=== PATIENT | male | born 1930 | race Caucasian/White ===

== ENCOUNTER 2018-05-19 06:58 | Inpatient (IN) | payer MEDICARE, BC ==
[2018-05-19] MEDS ORDERED: Haloperidol Lactate 5 MG/ML VIAL ONE ×2 (07:04→10:23)
[2018-05-19 07:25] LABS: #Basophils 0.1 thou/uL (0.0-0.2); #Eosinphils 0.1 thou/uL (0.0-0.7); #Lymphocytes 1.2 thou/uL (1.20-3.40); #Monocytes 0.8 thou/uL (0.11-0.59); #Neutrophils 4.9 thou/uL (1.40-6.50); %Eosinophils 1.1 % (0.0-10.0); %Lymphocytes 16.3 % (21.0-51.0); %Monocytes 11.7 % (0.0-10.0); %Neutrophils 69.9 % (42.0-75.0); Hemoglobin 12.4 g/dL (14.0-18.0); Mean Corpuscular HGB CONC 33.4 g/dL (32.0-36.0); Mean Corpuscular Hemoglobin 28.3 pg (27.0-31.0); Mean Corpuscular Volume 84.8 fL (78.0-98.0); Mean Platelet Volume 7.7 fL (7.4-10.4); Platelet Count 166 thou/uL (130-400); RBC Distribution Width 16.6 % (11.5-14.5); Red Blood Cell (RBC) Count 4.37 mill/uL (4.70-6.10); White Blood Cell (WBC) Count 7.1 thou/uL (4.8-10.8)
[2018-05-19 07:47] LABS: ALT (SGPT) 17 U/L (8-55); AST (SGOT) 33 U/L (5-34); Albumin 3.2 g/dL (3.4-4.8); Alkaline Phosphatase 47 U/L (40-150); Anion Gap 13 mmol/L (10-20); BUN (Urea Nitrogen) 13 mg/dL (8.4-25.7); Bilirubin, Total 0.7 mg/dL (0.2-1.2); Calc. Creatinine Clearance 0 mL/min (70-130); Calcium 8.6 mg/dL (7.8-10.44); Carbon Dioxide 22 mmol/L (23-31); Chloride 102 mmol/L (98-107); Estimated GFR-MDRD Greater than 90; Globulin 2.9 g/dL (2.4-3.5); Glucose 126 mg/dL (83-110); Potassium 4.3 mmol/L (3.5-5.1); Protein, Total 6.1 g/dL (5.8-8.1); Sodium 133 mmol/L (136-145)
[2018-05-19 07:50] LABS: CKMB 4.7 ng/mL (0-6.6); Troponin I Less than 0.010 ng/mL (< 0.028)
--- NOTE | 2018-05-19 11:31 | CT ---
CT BRAIN WITHOUT CONTRAST: HISTORY: Altered mental status. COMPARISON: None. FINDINGS: Mild to moderate atrophy. No focal loss of gomez-white matter differentiation. No hemorrhage. No midline shift or mass effect. The paranasal sinuses and mastoids are clear. Calvarium is intact. Dense calcifications of the intr acranial intradural vertebral arteries as well as of the cavernous carotid arteries. IMPRESSION: No acute large volume hemorrhage or infarction. POS: [facility]
--- NOTE | 2018-05-19 13:04 | HP ---
DATE OF ADMISSION: 05/19/2018 PRIMARY CARE PHYSICIAN: Marya Balderrama M.D. REASON FOR ADMISSION: Acute encephalopathy. 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 He did not have any underlying dementia or any behavioral issue in the past. Currently, the patient is completely encephalopathic and extremely agitated and unable to provide a ny history by himself, so I spoke with the patient's primary care physician who was taking care of [facility] at [facility] as well as at snf on her phone number [phone]. Dr. Marya Balderrama is the primary care physician at [facility]. The patient's daughter, son and his are pres ent at bedside in the emergency room. They also provided some history. I have some broken history. The patient has a history of aortic valve stenoses and he required trans catheter aortic valve replacement in [place]. Before that, the patient was having intermittent TIAs. The patient was kept on aspirin and Plavix and this aortic valve replacement was done in July. The patient had one time admission in 10/25/2017 at [facility]. At that time, the anurag ent was sent there for TIA type of symptoms. He was having word finding difficulty and subsequently investigation done at [facility] and found to be small lacunar type of infarct and the patient w as started on aspirin and Plavix. Subsequently, the patient was also added on Eliquis therapy, which he was taking. The patient did have intermittent TIA type of symptoms, but it is not clear whether it was related with altered mental status, but family member points to TIA symptoms. This patient was recently admitted in our hospital in April. At that time, the patient had more i nvestigation including MRI, lumbar puncture, CT brain, carotid ultrasound, ultrasound thyroid, CT [address], abdomen and pelvis, routine blood test. During that admission, Neurology, Urology and primary va re physician was following there. The patient also had a catheter related injury and had gross hematuria and that is why 5 days he was off on Eliquis therapy and Eliquis was started on by the end of that admission on Monday and the anurag ent was doing very well on Monday and he was discharged to [facility]. On Monday, he was having intermittent confusion, but since Monday, Monday, the patient's condition d eteriorated. He was more and more agitated. He was hitting nurses. He was throwing food and that i s why the patient was sent to emergency room for evaluation. The patient's family members were also relatively unhappy with the hospital course at [facility] . 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 Fo und with thyroid mass on ultrasound, atrial fibrillation, chronic anticoagulation, history of aortic stenosis, required transcatheter aortic valve replacement. PAST SURGICAL HISTORY: As per family member, the patient required a transcatheter aortic valve repla cement. PAST PSYCHIATRIC HISTORY: Reviewed and negative. SOCIAL HISTORY: The patient is currently from [facility]. No history of tobacco, alcohol or illicit drug abuse. 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 FAMILY HISTORY: No family history of coronary artery disease, stroke or cancer. ALLERGIES: No known drug allergy. CURRENT HOME MEDICATIONS: Centrum Silver 1 tablet daily, lorazepam 0.5 mg twice daily, Crestor 40 mg daily, metformin 500 mg daily, thiamine 100 mg daily, Haldol 2 mg twice daily, Eliquis 5 mg twice da lady, Multaq 400 mg twice daily, calcium carbonate 500 mg 1 tablet q.8 hourly p.r.n. REVIEW OF SYSTEMS: All review of systems tried to reviewed with the patient, but unable to review at this point because of encephalopathy. EMERGENCY ROOM COURSE: The patient required 2 doses of Haldol 2.5 mg. PHYSICAL EXAMINATION: VITAL SIGNS: Currently, blood pressure 116/64, pulse 92, respiratory rate 16, temperature 98.9, satu ration 98% on room air, weight 74.8 kilograms. GENERAL: The patient is currently extremely agitated, restless, combative. HEAD: Normocephalic, atraumatic. EYES: Pupils round and reactive to light. Extraocular muscles intact. ENT: Oropharynx within normal limit. Moist mucous membrane. No oral lesion, no pharyngeal erythema , no exudate. NECK: Supple, no JVD, no thyromegaly, no carotid bruit. LUNGS: Clear to auscultation without any rhonchi or rales. CARDIAC: S1, S2 appears regular. Soft systolic murmur noted. No gallop, no rub. ABDOMEN: Soft, bowel sounds present, nontender, nondistended. No organomegaly, no mass, no suprapub ic tenderness. BACK: Unremarkable. No CVA tenderness. EXTREMITIES: Upper extremities, passive movement of all joints are normal. Lower extremities, trace edema noted. Good distal pulsation. SKIN: No skin rash. HEMATOLOGICAL: No lymphadenopathy. PSYCHIATRIC: Unable to assess at this point, the patient is completely restless and agitated. NEUROLOGIC: He is moving all four limbs. His speech is garbled and rambling. He is extremely agita dexter, but he is moving all 4 limbs. He is alert and oriented x0. SIGNIFICANT LABORATORY DATA: EKG showing normal sinus rhythm, nonspecific ST-T changes. CT brain ba sed on my review, no acute intracranial process. CBC, WBC 7.1, hemoglobin 12.4, platelet 166,000. BMP, sodium 133, potassium 4.3, chloride 102, carbo n dioxide 22, BUN 13, creatinine 0.79, glucose 126, calcium 8.6. LFT, AST 33, ALT 17, alkaline phosphatase 47, albumin 3.2, CK-MB 4.7. Troponin I less than 0.010. ASSESSMENT: 1. Acute encephalopathy. This patient has multiple investigations done in the recent past at [facility] and that we will obtain all medical record. I spoke with the patient's primary care physic jacques who was taking care of him at [facility] and discussed test results done over there. As per them, MRI brain was unremarkable for any acute process. Lumbar puncture was negative. Culture from CSF was negative. CSF VDRL was negative. West Nile virus was negative. CSF biochemistry was jeanna l. Routine labs were all unremarkable. CT chest, abdomen and pelvis was also unremarkable. Ultraso und carotid showed incidental thyroid mass. Paraneoplastic workup was not done at [facility]. There was no new medication that was added and the patient has previous multiple transient ischemic a ttacks and one time proven stroke. At this point, exact etiology of his behavioral issues and his ag itation is not known, but this all started within 2 weeks. Otherwise, the patient previously normal functioning properly and now he is completely not able to take care of himself. At this point, we wi ll control his agitation first. We will keep closely in stroke floor, do neuro check, safety precaut ions. We will consult Neurology and we will decide further investigation after Neurology see him. A ny kind of investigation needed, then we will order after Neurology sees him. 2. Diabetes type 2. We will provide insulin as per sliding scale per protocol. 3. Atrial fibrillation on chronic anticoagulation. 4. 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 5. History of transcatheter aortic valve replacement. PLAN: Full admission to stroke floor. We will control agitation and we will do more investigation a fter Neurology sees him. This patient is not safe for discharge back to snf and we are expe cting the patient's stay in hospital more than 2 midnights. CODE STATUS: Full code. The patient's son is surrogate decision maker. Plan of care discussed with the family member at bedside in the emergency room.
[2018-05-19] MEDS ORDERED: Acetaminophen 325 MG TAB PO PRN (13:36)
[2018-05-19] MEDS ORDERED: Labetalol HCl 100 MG/20 ML VIAL SLOW IVP PRN (13:36)
[2018-05-19] MEDS ORDERED: hydrALAZINE 20 MG/ML VIAL SLOW IVP PRN (13:36)
[2018-05-19] MEDS ORDERED: Bisacodyl 10 MG SUPP PR PRN (13:36)
[2018-05-19] MEDS ORDERED: Metoclopramide HCl 10 MG/2 ML VIAL IVP PRN (13:36)
[2018-05-19] MEDS ORDERED: Eucerin (Mineral Oil/Petrolatum,White) 30 gm Jar TOP PRN (13:36)
[2018-05-19] MEDS ORDERED: Sodium Chloride 0.65% Nasal 44 ML BOT EA NARE PRN (13:36)
[2018-05-19] MEDS ORDERED: Dextrose 50% Abboject 50 ML SYRINGE SLOW IVP PRN (13:36)
[2018-05-19] MEDS ORDERED: Dextrose 5% in Water 1,000 ML IV PRN (13:36)
[2018-05-19] MEDS ORDERED: Artificial Tears 18 DROP/0.9 ML EA EYE PRN (13:36)
[2018-05-19] MEDS ORDERED: Acetaminophen 650 MG Suppository PR PRN (13:36)
[2018-05-19] MEDS ORDERED: Sterile Water 10 ML VIAL FS PRN (17:10)
[2018-05-19] MEDS: metFORMIN 500 MG TAB PO SCH (17:29)
[2018-05-19] MEDS: Ziprasidone 20 MG VIAL IM PRN ×3 (17:29→22:38)
[2018-05-19] MEDS ORDERED: diphenhydrAMINE 50 MG/ML VIAL IVP SCH (20:00)
[2018-05-19] MEDS ORDERED: Lorazepam 2 MG/ML VIAL SLOW IVP SCH (20:00)
[2018-05-19] MEDS: Rosuvastatin 20 MG TAB PO SCH (21:50)
[2018-05-19] MEDS: Apixaban 5 MG TAB PO SCH (21:50)
[2018-05-19] MEDS: Lorazepam 0.5 MG TAB PO SCH (21:50)
[2018-05-19] MEDS: Famotidine/PF 20 mg/2ml Vial SLOW IVP SCH (21:50)
[2018-05-19] MEDS: Dronedarone HCl 400 MG TAB PO SCH (21:50)
[2018-05-19] MEDS: Haloperidol 1 MG TAB PO SCH (21:50)
[2018-05-20 06:25] LABS: #Eosinphils 0.1 thou/uL (0.0-0.7); #Lymphocytes 0.6 thou/uL (1.20-3.40); #Monocytes 0.5 thou/uL (0.11-0.59); #Neutrophils 2.8 thou/uL (1.40-6.50); %Basophils 0.5 % (0.0-1.0); %Eosinophils 1.5 % (0.0-10.0); %Lymphocytes 14.3 % (21.0-51.0); %Monocytes 12.9 % (0.0-10.0); %Neutrophils 70.8 % (42.0-75.0); Hemoglobin 11.4 g/dL (14.0-18.0); Mean Corpuscular Hemoglobin 28.1 pg (27.0-31.0); Mean Platelet Volume 7.7 fL (7.4-10.4); Platelet Count 131 thou/uL (130-400); RBC Distribution Width 16.5 % (11.5-14.5); Red Blood Cell (RBC) Count 4.05 mill/uL (4.70-6.10); White Blood Cell (WBC) Count 3.9 thou/uL (4.8-10.8)
[2018-05-20 06:59] LABS: ALT (SGPT) 16 U/L (8-55); AST (SGOT) 32 U/L (5-34); Albumin 2.6 g/dL (3.4-4.8); Alkaline Phosphatase 46 U/L (40-150); Anion Gap 10 mmol/L (10-20); BUN (Urea Nitrogen) 11 mg/dL (8.4-25.7); Bilirubin, Total 0.6 mg/dL (0.2-1.2); Calc. Creatinine Clearance 68 mL/min (70-130); Calcium 8.5 mg/dL (7.8-10.44); Carbon Dioxide 25 mmol/L (23-31); Chloride 104 mmol/L (98-107); Estimated GFR-MDRD Greater than 90; Globulin 2.5 g/dL (2.4-3.5); Glucose 79 mg/dL (83-110); Potassium 4.1 mmol/L (3.5-5.1); Protein, Total 5.1 g/dL (5.8-8.1); Sodium 135 mmol/L (136-145)
[2018-05-20] MEDS: Dronedarone HCl 400 MG TAB PO SCH ×2 (08:54→21:57)
[2018-05-20] MEDS: Apixaban 5 MG TAB PO SCH ×2 (08:54→21:57)
[2018-05-20] MEDS: metFORMIN 500 MG TAB PO SCH ×2 (08:54→16:29)
[2018-05-20] MEDS: Haloperidol 1 MG TAB PO SCH (08:54)
[2018-05-20] MEDS: Lorazepam 0.5 MG TAB PO SCH (08:55)
[2018-05-20] MEDS: Famotidine/PF 20 mg/2ml Vial SLOW IVP SCH ×2 (08:55→21:58)
--- NOTE | 2018-05-20 09:44 | PDOC.PN ---
- Subjective Encounter Start Date: 05/20/18 Encounter Start Time: 07:10 -: old records requested/rev last night pt was violent and aggressive, pt is confused this morning Patient seen and examined. sitter bedside - Objective Resuscitation Status: Resuscitation Status FULL:Full Resuscitation MAR Reviewed: Yes Vital Signs & Weight: Vital Signs (12 hours) Temp Pulse Resp BP Pulse Ox 05/20/18 07:29 97.6 F 74 16 151/69 H 98 05/20/18 04:00 97.7 F 70 16 179/70 H 98 05/19/18 23:52 96.6 F L 89 16 166/83 H 96 Weight Weight 149 lb Result Diagrams: 05/20/18 05:56 05/20/18 05:56 Additional Labs: Accuchecks 05/19/18 05/19/18 22:50 15:56 POC Glucose 103 107 EKG Reviewed by me: Yes (nsr) Phys Exam - Physical Examination Constitutional: NAD HEENT: PERRLA, moist MMs, sclera anicteric Neck: no JVD, supple Respiratory: no wheezing, no rales, no rhonchi Cardiovascular: RRR, no significant murmur, no rub Gastrointestinal: soft, non-tender, no distention, positive bowel sounds Musculoskeletal: no edema, pulses present Neurological: moves all 4 limbs Lymphatic: no nodes Psychiatric: normal affect Skin: no rash, normal turgor Dx/Plan (1) Encephalopathy acute Code(s): G93.40 - ENCEPHALOPATHY, UNSPECIFIED Status: Acute (2) PAF (paroxysmal atrial fibrillation) Code(s): I48.0 - PAROXYSMAL ATRIAL FIBRILLATION Status: Chronic Comment: on [place] (3) Chronic anticoagulation Code(s): Z79.01 - 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 (CURRENT) USE OF ANTICOAGULANTS Status: Chronic Comment: with frank (4) Status post transcatheter aortic valve replacement Code(s): Z95.2 - PRESENCE OF PROSTHETIC HEART VALVE Status: Chronic Comment : done in July 2017 (5) Anxiety and depression Code(s): F41.9 - ANXIETY DISORDER, UNSPECIFIED; F32.9 - MAJOR DEPRESSIVE DISORDER, SINGLE EPISODE, UNSPECIFIED Status: Chronic - Plan cont current plan of care * Neurology evaluation pending, * neurology to decide if any more testing require to identify etiology for his encephalopathy, he had most of investigation done at [facility] recently * medication reviewed as below * symptomatic treatment * supportive care. * will update family but at this point no new information to update Review of Systems - Review of Systems Other: not reliable with pt due to encephalopathy - Medications/Allergies Allergies/Adverse Reactions: Allergies Allergy/AdvReac Type Severity Reaction Status Date / Time No Known Allergies Allergy Verified 05/19/18 14:06 Medications: Current Medications Acetaminophen (Tylenol) 650 mg PO Q4H PRN PRN Reason: Headache/Fever/Mild Pain (1-3) Acetaminophen (Tylenol) 650 mg SD Q4H PRN PRN Reason: Headache/Fever/Mild Pain (1-3) Apixaban (Eliquis) 5 mg PO BID [facility] Last Admin: 05/20/18 08:54 Dose: 5 mg Artificial Tears (Tears Naturale) 2 drop EA EYE PRN PRN PRN Reason: Dry Eyes Bisacodyl (Dulcolax) 10 mg SD DAILYPRN PRN PRN Reason: Constipation Dextrose/Water (Dextrose 50%) 25 gm SLOW IVP PRN PRN PRN Reason: Hypoglycemia Dronedarone (Multaq) 400 mg PO BID [facility] Last Admin: 05/20/18 08:54 Dose: 400 mg Famotidine (Pepcid) 20 mg SLOW IVP Q12HR [facility] Last Admin: 05/20/18 08:55 Dose: 20 mg Glucagon (Glucagon) 1 mg IM PRN PRN PRN Reason: Hypoglycemia Haloperidol (Haldol) 2 mg PO BID [facility] Last Admin: 05/20/18 08:54 Dose: 2 mg Hydralazine HCl (Apresoline) 10 mg SLOW IVP Q4H PRN PRN Reason: SBP > 180 and HR < 70 Dextrose/Water (D5w) 1,000 mls @ 0 mls/hr IV .Q0M PRN PRN Reason: Hypoglycemia Insulin Human Lispro (Humalog) 0 units SC .MODERATE SLIDING SC PRN PRN Reason: Moderate Correctional Scale Insulin Human Lispro (Humalog) 0 units SC .BEDTIME SLIDING SC PRN PRN Reason: Bedtime Correctional Scale Labetalol HCl (Normodyne) 20 mg SLOW IVP Q4H PRN PRN Reason: SBP > 180 and HR >/= 70 Lorazepam (Ativan) 0.5 mg PO BID [facility] Last Admin: 05/20/18 08:55 Dose: 0.5 mg Metformin HCl (Glucophage) 500 mg PO BID-[facility] Last Admin: 05/20/18 08:54 Dose: 500 mg Metoclopramide HCl (Reglan) 5 mg IVP Q4H PRN PRN Reason: Nausea Mineral Oil/White Petrolatum (Eucerin Cream) 0 gm TOP BIDPRN PRN PRN Reason: Dry Skin Rosuvastatin Calcium (Crestor) 40 mg PO HS [facility] Last Admin: 05/19/18 21:50 Dose: Not Given Sodium Chloride ([place] Nasal [place] 0.65%) 0 ml EA NARE QIDPRN PRN PRN Reason: Nasal Congestion Sterile Water (Water For Injection) 0 ml FS PRN PRN PRN Reason: .FOR GEODON Last Admin: 05/19/18 17:29 Dose: 1.2 ml Thiamine HCl (Thiamine) 100 mg PO DAILY [facility] Last Admin: 05/20/18 08:55 Dose: 100 mg Ziprasidone (Geodon) 10 mg IM Q2H PRN PRN Reason: Agitation Last Admin: 05/19/18 22:38 Dose: 10 mg
--- NOTE | 2018-05-20 16:19 | CON ---
DATE OF CONSULTATION: 05/20/2018 CONSULTING PHYSICIAIN: Hospitalist Service. IMPRESSION: 1. Acute encephalopathy, which has been present for nearly 2 weeks at this point with uncertain etio logy. 2. Diabetes. 3. Aortic valve replacement. PLAN: 1. Seroquel 50 mg at night. 2. Geodon 20 mg IM q.12 hours p.r.n. agitation. 3. Antithyroidal antibody, cortisol level, ammonia level, and anti-Hu antibody. Ms. 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 His son reports that he was in his normal state of health until about the prior to . He had been helping out one of the other family members who had bed bugs and had done some spraying with pesticide. He start ed being a bit agitated and acting appropriately, so he was taking Dominic and White. He was subsequen tly admitted and had a fairly extensive workup including MRI of the brain, lumbar puncture, and lab w ork. He was treated with antipsychotic medications and subsequently transferred to the [facility]. His situation seemed to deteriorate after transfer to rehabilitation once his medication doses we re reduced. He was transferred back here for further evaluation. He is quite agitated yesterday and received Haldol, Ativan for sedation. He continues to be a bit confused and tends to repeat himself with constant stories that have remained similar. Despite this, he has been able to keep track of c urrent activities such as football game and other recent events. There are no signs of hallucination s reported. He has never done anything like this in the past. He has not shown any signs of dementi a prior to admission. His CT scan of the brain was unremarkable. His lab work including a CBC and a comprehensive metabolic panel were also unremarkable. He was checked for urinary tract infection ea rlier and nothing was found. PAST MEDICAL HISTORY: As noted above. ALLERGIES: None. SOCIAL HISTORY: No tobacco or alcohol use. FAMILY HISTORY: Noncontributory. MEDICATION LIST: Reviewed. REVIEW OF SYSTEMS: Patient is without any particular complaints at this point. PHYSICAL EXAMINATION: GENERAL: He is a reasonably healthy-appearing elderly gentleman sitting up in bed in no acute distre ss. VITAL SIGNS: Blood pressure 122/56, pulse 90, respirations 18, temperature 98.3. HEENT: Within normal limits. EXTREMITIES: No cyanosis or edema. NEUROLOGIC: He was alert and cooperative. Speech was a bit mumbling in nature but was fluent. Ther e was no facial asymmetry noted. He had equal strength bilaterally. No abnormal movements were seen . Gait was not tested. SUMMARY: This is an elderly man who has had some waxing and waning levels of encephalopathy for the last 2 weeks. There was some transient exposure to pesticides which may have some pertinents althoug h persisted, it remains uncertain at this point. His son reported some transient chorea-like m ovements which have not continued. I would suggest further lab work and treatment of psychosis, to m afshan normal sleep patterns.
[2018-05-20] MEDS: Ziprasidone 20 MG VIAL IM PRN (16:32)
[2018-05-20] MEDS: Sterile Water 10 ML VIAL FS PRN (16:32)
[2018-05-20] MEDS: Rosuvastatin 20 MG TAB PO SCH (22:00)
[2018-05-21] MEDS: metFORMIN 500 MG TAB PO SCH ×2 (08:12→17:37)
[2018-05-21] MEDS: Apixaban 5 MG TAB PO SCH ×2 (08:12→21:28)
[2018-05-21] MEDS: Dronedarone HCl 400 MG TAB PO SCH ×2 (08:12→21:28)
[2018-05-21] MEDS: Famotidine 20 MG TAB PO SCH ×2 (08:12→21:29)
--- NOTE | 2018-05-21 10:01 | ULT ---
THYROID ULTRASOUND: INDICATION: Thyroid mass. FINDINGS: There is a vague, 4 mm hypoechoic focus of the right thyroid lobe, laterally, which indicates a small solid echotexture nodule. The thyroid isthmus measures 3-4 mm, at upper limits of normal in thickne ss. There is scant thyroid tissue suggested at the left thyroid lobe region, not well discerned. IMPRESSION: 1. Findings which indicate a small solid, approximately 4 mm nodule of the right thyroid lobe. 2. The left thyroid lobe is not well discerned and may be atrophic or partially resected. Correlate with patient's history in this regard. POS: [facility]
[2018-05-21 12:38] LABS: EliA Thy New Method **** NEW METHOD ****; Thyroid Peroxidase IgG Ab Less than 4.0 IU/mL (<25 Normal)
[2018-05-21] MEDS: Ziprasidone 20 MG VIAL IM PRN (13:30)
--- NOTE | 2018-05-21 13:37 | PDOC.PN ---
- Subjective Encounter Start Date: 05/21/18 Encounter Start Time: 10:30 today pt is more lucid but still has garbled speech, no aggressiveness today Patient seen and examined. He was given one time geodon and he received seroquel - Objective Resuscitation Status: Resuscitation Status FULL:Full Resuscitation MAR Reviewed: Yes Vital Signs & Weight: Vital Signs (12 hours) Temp Pulse Pulse Pulse Resp BP BP 05/21/18 11:51 98.1 F 89 16 05/21/18 10:40 89 81 128/68 121/71 05/21/18 07:38 98.2 F 72 14 05/21/18 05:12 98.5 F 75 18 BP BP Pulse Ox 05/21/18 11:51 128/68 93 L 05/21/18 10:40 05/21/18 07:38 126/72 95 05/21/18 05:12 145/61 H 99 Weight Weight 149 lb I&O: 05/20/18 05/21/18 05/22/18 06:59 06:59 06:59 Intake Total 600 120 Balance 600 120 Result Diagrams: 05/20/18 05:56 05/20/18 05:56 Additional Labs: Accuchecks 05/21/18 05/20/18 05/20/18 06:12 20:45 17:09 POC Glucose 90 123 H 124 H 05/20/18 05:28 POC Glucose 74 EKG Reviewed by me: Yes (nsr) Phys Exam - Physical Examination Constitutional: NAD HEENT: PERRLA, moist MMs, sclera anicteric Neck: no JVD, supple Respiratory: no wheezing, no rales, no rhonchi Cardiovascular: RRR, no rub SM+ Gastrointestinal: soft, non-tender, no distention, positive bowel sounds Musculoskeletal: no edema, pulses present Neurological: non-focal, normal sensation, moves all 4 limbs Lymphatic: no nodes Psychiatric: normal affect Skin: no rash, normal turgor Dx/Plan (1) Encephalopathy acute Code(s): G93.40 - ENCEPHALOPATHY, UNSPECIFIED Status: Acute (2) PAF (paroxysmal atrial fibrillation) Code(s): I48.0 - PAROXYSMAL ATRIAL FIBRILLATION Status: Chronic Comment: on Multaq (3) Chronic anticoagulation Code(s): Z79.01 - 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 (CURRENT) USE OF ANTICOAGULANTS Status: Chronic Comment: with frank (4) Status post transcatheter aortic valve replacement Code(s): Z95.2 - PRESENCE OF PROSTHETIC HEART VALVE Status: Chronic Comment : done in July 2017 (5) Thyroid nodule Code(s): E04.1 - NONTOXIC SINGLE THYROID NODULE Status: Acute (6) Diabetes type 2, controlled Code(s): E11.9 - TYPE 2 DIABETES MELLITUS WITHOUT COMPLICATIONS Status: Chronic - Plan cont current plan of care, plan discussed w/ family, PT/OT, social studies teacher * expensively discussed with family member bedside for a long time and answered all their questions and concerns * today we did US thyroid * we are waiting for medical record from [facility] * continue seroquel * suspecting pt may have frontotemporal dementia vs primary progressive aphasia * medication reviewed as below * symptomatic treatment * follow up on send out result. Review of Systems - Review of Systems Other: pt is still confused and unable to understand his speech, not bale to review and not reliable - Medications/Allergies Allergies/Adverse Reactions: Allergies Allergy/AdvReac Type Severity Reaction Status Date / Time No Known Allergies Allergy Verified 05/19/18 14:06 Medications: Current Medications Acetaminophen (Tylenol) 650 mg PO Q4H PRN PRN Reason: Headache/Fever/Mild Pain (1-3) Acetaminophen (Tylenol) 650 mg AL Q4H PRN PRN Reason: Headache/Fever/Mild Pain (1-3) Apixaban (Eliquis) 5 mg PO BID [facility] Last Admin: 05/21/18 08:12 Dose: 5 mg Artificial Tears (Tears Naturale) 2 drop EA EYE PRN PRN PRN Reason: Dry Eyes Bisacodyl (Dulcolax) 10 mg AL DAILYPRN PRN PRN Reason: Constipation Dextrose/Water (Dextrose 50%) 25 gm SLOW IVP PRN PRN PRN Reason: Hypoglycemia Dronedarone (Multaq) 400 mg PO BID [facility] Last Admin: 05/21/18 08:12 Dose: 400 mg Famotidine (Pepcid) 20 mg PO BID [facility] Last Admin: 05/21/18 08:12 Dose: 20 mg Glucagon (Glucagon) 1 mg IM PRN PRN PRN Reason: Hypoglycemia Hydralazine HCl (Apresoline) 10 mg SLOW IVP Q4H PRN PRN Reason: SBP > 180 and HR < 70 Dextrose/Water (D5w) 1,000 mls @ 0 mls/hr IV .Q0M PRN PRN Reason: Hypoglycemia Insulin Human Lispro (Humalog) 0 units SC .MODERATE SLIDING SC PRN PRN Reason: Moderate Correctional Scale Insulin Human Lispro (Humalog) 0 units SC .BEDTIME SLIDING SC PRN PRN Reason: Bedtime Correctional Scale Labetalol HCl (Normodyne) 20 mg SLOW IVP Q4H PRN PRN Reason: SBP > 180 and HR >/= 70 Metformin HCl (Glucophage) 500 mg PO BID-[facility] Last Admin: 05/21/18 08:12 Dose: 500 mg Metoclopramide HCl (Reglan) 5 mg IVP Q4H PRN PRN Reason: Nausea Mineral Oil/White Petrolatum (Eucerin Cream) 0 gm TOP BIDPRN PRN PRN Reason: Dry Skin Quetiapine Fumarate (Seroquel) 50 mg PO QPM [facility] Last Admin: 05/20/18 21:57 Dose: 50 mg Rosuvastatin Calcium (Crestor) 40 mg PO HS [facility] Last Admin: 05/20/18 22:00 Dose: 40 mg Sodium Chloride ([place] Nasal [place] 0.65%) 0 ml EA NARE QIDPRN PRN PRN Reason: Nasal Congestion Sterile Water (Water For Injection) 10 ml FS Q12H PRN PRN Reason: TO RECONSTITUTE ZIPRASIDONE Last Admin: 05/20/18 16:32 Dose: 10 ml Thiamine HCl (Thiamine) 100 mg PO DAILY [facility] Last Admin: 05/21/18 08:12 Dose: 100 mg Ziprasidone (Geodon) 20 mg IM Q12H PRN PRN Reason: Agitation Last Admin: 05/21/18 13:30 Dose: 20 mg
[2018-05-21] MEDS ORDERED: Metoclopramide HCl 10 MG TAB PO PRN (14:30)
[2018-05-21] MEDS: Rosuvastatin 20 MG TAB PO SCH (21:28)
[2018-05-22] MEDS: Apixaban 5 MG TAB PO SCH ×2 (08:53→20:45)
[2018-05-22] MEDS: metFORMIN 500 MG TAB PO SCH ×2 (08:53→17:18)
[2018-05-22] MEDS: Famotidine 20 MG TAB PO SCH ×2 (08:53→20:45)
[2018-05-22] MEDS: Dronedarone HCl 400 MG TAB PO SCH ×2 (08:53→20:45)
--- NOTE | 2018-05-22 09:42 | EEG ---
Referring Physician: Bryanna DAWN EEG # [id number] TEST TYPE: ROUTINE PORTABLE INPATIENT REPORT: AN EEG USING THE INTERNATIONAL TEN-TWENTY SYSTEM OF ELECTRODE PLACEMENT WAS PERFORMED. The waking background is an 8 hertz alpha frequency. Some drowsiness was noted , but no sleep was present. Photic stimulation was unremarkable. No epileptiform features were present. IMPRESSION: THIS IS A NORMAL AWAKE AND DROWSY EEG. Straight Edger: KATHI Fermentation Operator: [email or web address]
[2018-05-22] MEDS: HumaLOG 300 UNITS/3 ML VIAL SC PRN ×3 (12:05→21:21)
--- NOTE | 2018-05-22 19:58 | PDOC.PN ---
- Subjective Encounter Start Date: 05/22/18 Encounter Start Time: 15:00 Patient seen and examined for Encephalopathy. Confusion somewhat better. No new focal deficits. No fever/chills. No new complaints. No overnight events - Objective Resuscitation Status - Order Detail: 05/22/18 12:05 Resuscitation Status Routine Resuscitation Status: FULL: Full Resuscitation Discussed with: Per previous order MAR Reviewed: Yes Vital Signs & Weight: Vital Signs (12 hours) Temp Pulse Resp BP Pulse Ox 05/22/18 15:37 88 18 134/85 96 05/22/18 11:49 98.0 F 95 20 124/72 93 L 05/22/18 08:00 98.4 F 98 20 135/65 96 Weight Weight 149 lb I&O: 05/21/18 05/22/18 05/23/18 06:59 06:59 06:59 Intake Total 600 240 680 Balance 600 240 680 Result Diagrams: 05/20/18 05:56 05/20/18 05:56 Additional Labs: Accuchecks 05/22/18 05/22/18 05/22/18 16:41 11:55 05:31 POC Glucose 185 H 239 H 157 H 05/21/18 23:15 POC Glucose 122 H EKG Reviewed by me: Yes (Tele SR) Phys Exam - Physical Examination Constitutional: NAD Respiratory: no wheezing, no rhonchi Cardiovascular: RRR, no rub Gastrointestinal: soft, non-tender, positive bowel sounds Neurological: moves all 4 limbs Dx/Plan - Plan DVT proph w/SCDs 1. Metabolic Encephalopathy - ?etio 2. 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 Par Afib - on Anticoag 4. HTN 5. h/o CVA 6. DM2 / Recent hospitalization at [facility] for Encephalopathy - MRI brain - neg, EEG - no seizures, [place] neg - reports in chart PLAN: Add Ensure Will add IVF if poor PO intake Cont curent meds as below On IV Steroids per Neuro Consult ENT per family req AM labs Review of Systems - Review of Systems Other: Cannot obtain due to current mentation - Medications/Allergies Allergies/Adverse Reactions: Allergies Allergy/AdvReac Type Severity Reaction Status Date / Time No Known Allergies Allergy Verified 05/19/18 14:06 Medications: Current Medications Acetaminophen (Tylenol) 650 mg PO Q4H PRN PRN Reason: Headache/Fever/Mild Pain (1-3) Acetaminophen (Tylenol) 650 mg [place] Q4H PRN PRN Reason: Headache/Fever/Mild Pain (1-3) Apixaban (Eliquis) 5 mg PO BID [facility] Last Admin: 05/22/18 08:53 Dose: 5 mg Artificial Tears (Tears Naturale) 2 drop EA EYE PRN PRN PRN Reason: Dry Eyes Bisacodyl (Dulcolax) 10 mg [place] DAILYPRN PRN PRN Reason: Constipation Dextrose/Water (Dextrose 50%) 25 gm SLOW IVP PRN PRN PRN Reason: Hypoglycemia Dronedarone (Multaq) 400 mg PO BID [facility] Last Admin: 05/22/18 08:53 Dose: 400 mg Famotidine (Pepcid) 20 mg PO BID [facility] Last Admin: 05/22/18 08:53 Dose: 20 mg Glucagon (Glucagon) 1 mg IM PRN PRN PRN Reason: Hypoglycemia Hydralazine HCl (Apresoline) 10 mg SLOW IVP Q4H PRN PRN Reason: SBP > 180 and HR < 70 Dextrose/Water (D5w) 1,000 mls @ 0 mls/hr IV .Q0M PRN PRN Reason: Hypoglycemia Methylprednisolone Sodium Succinate 250 mg/ Sodium Chloride 104 mls @ 208 mls/ hr IVPB BID [facility] Last Admin: 05/22/18 08:53 Dose: 104 mls Insulin Human Lispro (Humalog) 0 units SC .MODERATE SLIDING SC PRN PRN Reason: Moderate Correctional Scale Last Admin: 05/22/18 17:18 Dose: 2 unit Insulin Human Lispro (Humalog) 0 units SC .BEDTIME SLIDING SC PRN PRN Reason: Bedtime Correctional Scale Labetalol HCl (Normodyne) 20 mg SLOW IVP Q4H PRN PRN Reason: SBP > 180 and HR >/= 70 Metformin HCl (Glucophage) 500 mg PO BID[facility] Last Admin: 05/22/18 17:18 Dose: 500 mg Metoclopramide HCl (Reglan) 5 mg PO Q4H PRN PRN Reason: Nausea Mineral Oil/White Petrolatum (Eucerin Cream) 0 gm TOP BIDPRN PRN PRN Reason: Dry Skin Quetiapine Fumarate (Seroquel) 50 mg PO QPM [facility] Last Admin: 05/21/18 21:28 Dose: 50 mg Rosuvastatin Calcium (Crestor) 40 mg PO HS [facility] Last Admin: 05/21/18 21:28 Dose: 40 mg Sodium Chloride ([place] Nasal [place] 0.65%) 0 ml EA NARE QIDPRN PRN PRN Reason: Nasal Congestion Sterile Water (Water For Injection) 10 ml FS Q12H PRN PRN Reason: TO RECONSTITUTE ZIPRASIDONE Last Admin: 05/20/18 16:32 Dose: 10 ml Thiamine HCl (Thiamine) 100 mg PO DAILY [facility] Last Admin: 05/22/18 08:53 Dose: 100 mg Ziprasidone (Geodon) 20 mg IM Q12H PRN PRN Reason: Agitation Last Admin: 05/21/18 13:30 Dose: 20 mg
[2018-05-22] MEDS: Rosuvastatin 20 MG TAB PO SCH (21:18)
[2018-05-22] MEDS: Ziprasidone 20 MG VIAL IM PRN (22:32)
[2018-05-23] MEDS ORDERED: Haloperidol Lactate 5 MG/ML VIAL IM PRN ×2 (00:29→03:15)
--- NOTE | 2018-05-23 00:52 | CON ---
DATE OF CONSULTATION: 05/22/2018 NEUROLOGIC FOLLOWUP NOTE Mr. Poole's lab work revealed an antithyroidal peroxidase antibody that was significantly elevated. The presumed diagnosis at this point is Benny encephalopathy. We have started Solu-Medrol 250 mg twice a day. Family reports that he seems to be a bit better and is not stuck in the same loop of conversation as he was before. He seems to be tolerating the steroids reasonably well. He slept through the night last night. His urine output has been relatively minimal along with a minimal amount of oral intake, suggested that we put him on some maintenance fluids. Hopefully, we will see him turn the corner neurologically in short order. I would plan on switching him over to prednisone 40 mg a day in the next few days. Job ID: [id number]
[2018-05-23] MEDS ORDERED: Scopolamine 1.5 mg/72 hour Patch TOP SCH (01:00)
[2018-05-23] MEDS ORDERED: Lorazepam 2 MG/ML VIAL IM SCH (03:30)
[2018-05-23 06:20] LABS: #Lymphocytes 0.4 thou/uL (1.20-3.40); #Monocytes 0.3 thou/uL (0.11-0.59); #Neutrophils 8.7 thou/uL (1.40-6.50); %Eosinophils 0.1 % (0.0-10.0); %Lymphocytes 4.3 % (21.0-51.0); %Monocytes 2.9 % (0.0-10.0); %Neutrophils 92.7 % (42.0-75.0); Hemoglobin 11.5 g/dL (14.0-18.0); Mean Corpuscular Hemoglobin 28.4 pg (27.0-31.0); Mean Platelet Volume 8.3 fL (7.4-10.4); Platelet Count 160 thou/uL (130-400); RBC Distribution Width 17.1 % (11.5-14.5); Red Blood Cell (RBC) Count 4.04 mill/uL (4.70-6.10); White Blood Cell (WBC) Count 9.4 thou/uL (4.8-10.8)
[2018-05-23] MEDS: HumaLOG 300 UNITS/3 ML VIAL SC PRN ×3 (06:23→22:50)
[2018-05-23 06:31] LABS: Anion Gap 11 mmol/L (10-20); BUN (Urea Nitrogen) 28 mg/dL (8.4-25.7); Calc. Creatinine Clearance 55 mL/min (70-130); Calcium 8.7 mg/dL (7.8-10.44); Carbon Dioxide 25 mmol/L (23-31); Chloride 103 mmol/L (98-107); Estimated GFR-MDRD 77; Glucose 200 mg/dL (83-110); Magnesium 2.1 mg/dL (1.6-2.6); Potassium 4.2 mmol/L (3.5-5.1); Sodium 135 mmol/L (136-145)
[2018-05-23] MEDS ORDERED: Dextrose 5 %-0.45 % NaCl 1,000 ML IV SCH (10:00)
[2018-05-23] MEDS ORDERED: Dextrose 5 % And 0.9 % NaCl 1,000 ML IV SCH (10:00)
[2018-05-23] MEDS: metFORMIN 500 MG TAB PO SCH (10:19)
[2018-05-23] MEDS: Apixaban 5 MG TAB PO SCH ×2 (10:43→20:40)
[2018-05-23] MEDS: Famotidine 20 MG TAB PO SCH ×2 (10:43→20:40)
[2018-05-23] MEDS: Docusate 100 MG CAP PO SCH ×2 (10:43→20:39)
[2018-05-23] MEDS: Dronedarone HCl 400 MG TAB PO SCH ×2 (10:43→20:40)
[2018-05-23] MEDS: Dextrose 5 %-0.45 % NaCl 1,000 ML IV SCH ×3 (10:51→18:53)
--- NOTE | 2018-05-23 12:39 | PDOC.PN ---
- Subjective Encounter Start Date: 05/23/18 Encounter Start Time: 08:30 Patient seen and examined for Encephalopathy. Mentation improving. No new focal deficits. No new complaints. Overnight events noted - Objective Resuscitation Status - Order Detail: 05/22/18 12:05 Resuscitation Status Routine Resuscitation Status: FULL: Full Resuscitation Discussed with: Per previous order MAR Reviewed: Yes Vital Signs & Weight: Vital Signs (12 hours) Temp Pulse Resp BP Pulse Ox 05/23/18 11:35 97.4 F L 84 18 112/57 L 95 05/23/18 08:00 97.4 F L 65 18 117/59 L 96 05/23/18 04:00 97.1 F L 101 H 20 116/87 98 Weight Weight 149 lb I&O: 05/22/18 05/23/18 05/24/18 06:59 06:59 06:59 Intake Total 240 930 240 Output Total 175 Balance 240 755 240 Result Diagrams: 05/23/18 05:47 05/23/18 05:47 Additional Labs: Accuchecks 05/23/18 05/23/18 05/22/18 10:37 05:47 20:32 POC Glucose 106 210 H 188 H 05/22/18 05/22/18 16:41 11:55 POC Glucose 185 H 239 H Phys Exam - Physical Examination Constitutional: NAD Respiratory: no wheezing, no rhonchi Cardiovascular: RRR, no rub Gastrointestinal: soft, non-tender, positive bowel sounds Musculoskeletal: no edema Neurological: moves all 4 limbs (follows commands to some extent) Dx/Plan - Plan 1. Metabolic Encephalopathy - ?etio 2. 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 Par Afib - on Anticoag 4. HTN 5. h/o CVA 6. DM2 / Recent hospitalization at [facility] for Encephalopathy PLAN: Cont IVF CT Soft tissue per ENT Cont curent meds as below On IV Steroids AM labs Review of Systems - Review of Systems Other: Cannot obtain due to current mentation. - Medications/Allergies Allergies/Adverse Reactions: Allergies Allergy/AdvReac Type Severity Reaction Status Date / Time No Known Allergies Allergy Verified 05/19/18 14:06 Medications: Current Medications Acetaminophen (Tylenol) 650 mg PO Q4H PRN PRN Reason: Headache/Fever/Mild Pain (1-3) Acetaminophen (Tylenol) 650 mg [place] Q4H PRN PRN Reason: Headache/Fever/Mild Pain (1-3) Apixaban (Eliquis) 5 mg PO BID [facility] Last Admin: 05/23/18 10:43 Dose: 5 mg Artificial Tears (Tears Naturale) 2 drop EA EYE PRN PRN PRN Reason: Dry Eyes Bisacodyl (Dulcolax) 10 mg [place] DAILYPRN PRN PRN Reason: Constipation Cyanocobalamin (Vitamin B-12) 1,000 mcg PO DAILY [facility] Dextrose/Water (Dextrose 50%) 25 gm SLOW IVP PRN PRN PRN Reason: Hypoglycemia Docusate Sodium (Colace) 100 mg PO BID [facility] Last Admin: 05/23/18 10:43 Dose: 100 mg Dronedarone (Multaq) 400 mg PO BID [facility] Last Admin: 05/23/18 10:43 Dose: 400 mg Famotidine (Pepcid) 20 mg PO BID [facility] Last Admin: 05/23/18 10:43 Dose: 20 mg Folic Acid (Folvite) 1 mg PO DAILY [facility] Glucagon (Glucagon) 1 mg IM PRN PRN PRN Reason: Hypoglycemia Hydralazine HCl (Apresoline) 10 mg SLOW IVP Q4H PRN PRN Reason: SBP > 180 and HR < 70 Dextrose/Water (D5w) 1,000 mls @ 0 mls/hr IV .Q0M PRN PRN Reason: Hypoglycemia Methylprednisolone Sodium Succinate 250 mg/ Sodium Chloride 104 mls @ 208 mls/ hr IVPB BID [facility] Last Admin: 05/23/18 08:51 Dose: 104 mls Dextrose/Sodium Chloride (D5 1/2 Ns) 1,000 mls @ 125 mls/hr IV .Q8H [facility] Last Admin: 05/23/18 10:51 Dose: 1,000 mls Insulin Human Lispro (Humalog) 0 units SC .MODERATE SLIDING SC PRN PRN Reason: Moderate Correctional Scale Last Admin: 05/23/18 06:23 Dose: 4 unit Insulin Human Lispro (Humalog) 0 units SC .BEDTIME SLIDING SC PRN PRN Reason: Bedtime Correctional Scale Labetalol HCl (Normodyne) 20 mg SLOW IVP Q4H PRN PRN Reason: SBP > 180 and HR >/= 70 Mineral Oil/White Petrolatum (Eucerin Cream) 0 gm TOP BIDPRN PRN PRN Reason: Dry Skin Multivitamins (Theragran) 1 tab PO DAILY [facility] Quetiapine Fumarate (Seroquel) 50 mg PO QPM [facility] Last Admin: 05/22/18 20:44 Dose: 50 mg Rosuvastatin Calcium (Crestor) 40 mg PO HS [facility] Last Admin: 05/22/18 21:18 Dose: 40 mg Sodium Chloride ([place] Nasal [place] 0.65%) 0 ml EA NARE QIDPRN PRN PRN Reason: Nasal Congestion Sterile Water (Water For Injection) 10 ml FS Q12H PRN PRN Reason: TO RECONSTITUTE ZIPRASIDONE Last Admin: 05/20/18 16:32 Dose: 10 ml Thiamine HCl (Thiamine) 100 mg PO DAILY [facility] Last Admin: 05/23/18 10:44 Dose: 100 mg Ziprasidone (Geodon) 20 mg IM Q12H PRN PRN Reason: Agitation Last Admin: 05/22/18 22:32 Dose: 20 mg
--- NOTE | 2018-05-23 13:04 | CON ---
DATE OF CONSULTATION: 05/23/2018 The patient was seen in consultation by Dr. Vicente for evaluation of thyroid mass. BRIEF HISTORY: This 88-year-old gentleman with dementia. He was transferred from 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 Here, the patient was transferred to the [facility]. Since that time, there has been some dementia-related psychiatric issues, the patient was transferred for inpatient care and further workup. Ultrasound here showed no significant substernal evidence of a goiter or lesion. PAST MEDICAL HISTORY: Hypertension, dementia PHYSICAL EXAMINATION: GENERAL: The patient is resting comfortably in bed. He had received a dosage of Haldol recently and is responding to questions. He got very lethargic and sleepy. NECK: Shows no obvious lymphadenopathy or masses. The laryngeal landmarks are easily palpated. The thyroid is difficult to appreciate, but does not appear to be markedly enlarged. NASAL CAVITY: Clear anteriorly. ORAL CAVITY: mucosa is intact. No lesions. ASSESSMENT: Possible substernal thyroid lesion. RECOMMENDATIONS: We will recommend a CT scan of the neck with contrast. We will follow up after that. Job ID: [id number]
--- NOTE | 2018-05-23 14:23 | CT ---
CT NECK SOFT TISSUES WITH CONTRAST: DATE: 05/23/2018. HISTORY: An 88-year-old male with thyroid mass. COMPARISON: No prior neck CTs. FINDINGS: There is a well-circumscribed, approximately 5.5 x 2.5 x 4 cm solid mass dominating the left thyroid lobe. The majority of the mass has heterogeneously low attenuation, with irregular margins, interspe rsed with intermediate density, and soft tissue density rim. A small portion of very superior pole o f the left lobe is not affected. This mass was not appreciated on the ultrasound of 05/21/2018, uzma use most of it is inferior to the level of the clavicles. The mass displaces the trachea to the righ t. The right lobe of the thyroid gland demonstrates no obvious mass; the tiny 0.4 cm nodule demonstr ated on the ultrasound is difficult to appreciate on this CT. In the region of the left subclavian vein, there is an approximately 3.5 x 2.5 x 1 cm mass-like densi ty. Its attenuation is slightly lower than that of the adjacent contrast-enhanced left subclavian ve in. It is uncertain whether this represents a venous varix or a separate mass that is extrinsically compressing the subclavian vein. (Sagittal image 81 of 96, series 301 suggests that this could be a s eparate mass which is compressing the subclavian vein). Other than this, there is no other potential cervical lymphadenopathy. Severe streak artifact from a large amount of metallic dental work obscures much of the parotid, oropharyngeal mucosal, parapharyn geal, sublingual, and rn er, spaces. The submandibular glands are bilaterally symmetrical and n ormal. IMPRESSION: 1. Large left thyroid mass. This would be amenable to CT-guided fine needle aspiration biopsy (but not ultrasound-guide fine needle aspiration biopsy because of its inferior position). 2. A questionable mass extrinsically compressing the left subclavian vein versus varix of the left s ubclavian vein. Because of its location posterior to the clavicle, this may be difficult to access w ith Doppler ultrasound. Nevertheless, Doppler ultrasound should be attempted. POS: [facility]
[2018-05-23] MEDS ORDERED: Iopamidol 370 76% 100 ML VIAL ONE (16:45)
[2018-05-24] MEDS: HumaLOG 300 UNITS/3 ML VIAL SC PRN ×3 (06:20→18:40)
[2018-05-24] MEDS: Dextrose 5 %-0.45 % NaCl 1,000 ML IV SCH (06:24)
[2018-05-24 06:41] LABS: Anion Gap 8 mmol/L (10-20); BUN (Urea Nitrogen) 32 mg/dL (8.4-25.7); Calc. Creatinine Clearance 55 mL/min (70-130); Calcium 8.2 mg/dL (7.8-10.44); Carbon Dioxide 26 mmol/L (23-31); Chloride 105 mmol/L (98-107); Estimated GFR-MDRD 78; Glucose 185 mg/dL (83-110); Potassium 4.3 mmol/L (3.5-5.1); Sodium 135 mmol/L (136-145)
[2018-05-24] MEDS: Multivit, Therapeutic 1 TAB PO SCH (09:26)
[2018-05-24] MEDS: Folic Acid 1 MG TAB PO SCH (09:26)
[2018-05-24] MEDS: Docusate 100 MG CAP PO SCH ×2 (09:27→20:01)
[2018-05-24] MEDS: predniSONE 20 MG TAB PO SCH (09:27)
[2018-05-24] MEDS: Cyanocobalamin (Vitamin B-12) 1,000 MCG TAB PO SCH (09:27)
[2018-05-24] MEDS: Famotidine 20 MG TAB PO SCH (09:27)
[2018-05-24] MEDS: Dronedarone HCl 400 MG TAB PO SCH ×2 (09:27→20:01)
[2018-05-24] MEDS: Apixaban 5 MG TAB PO SCH ×2 (10:33→20:01)
--- NOTE | 2018-05-24 11:49 | PDOC.PN ---
- Subjective Encounter Start Date: 05/24/18 Encounter Start Time: 10:00 Patient seen and examined for Encephalopathy. Mentation slowly improving. No new complaints. No overnight events - Objective Resuscitation Status - Order Detail: 05/22/18 12:05 Resuscitation Status Routine Resuscitation Status: FULL: Full Resuscitation Discussed with: Per previous order MAR Reviewed: Yes Vital Signs & Weight: Vital Signs (12 hours) Temp Pulse Resp BP Pulse Ox 05/24/18 07:29 97.8 F 64 18 121/55 L 95 05/24/18 03:28 98.1 F 71 16 105/54 L 92 L 05/24/18 00:00 97.8 F 79 16 116/62 92 L Weight Weight 149 lb I&O: 05/23/18 05/24/18 05/25/18 06:59 06:59 06:59 Intake Total 930 1477 Output Total 175 250 Balance 755 1227 Result Diagrams: 05/23/18 05:47 05/24/18 06:01 Additional Labs: Accuchecks 05/24/18 05/24/18 05/23/18 10:56 05:53 21:17 POC Glucose 283 H 261 H 283 H 05/23/18 17:02 POC Glucose 291 H EKG Reviewed by me: Yes (Tele SR) Phys Exam - Physical Examination Constitutional: NAD Respiratory: no wheezing, no rhonchi Cardiovascular: RRR, no rub Gastrointestinal: soft, non-tender, positive bowel sounds Musculoskeletal: no edema Neurological: moves all 4 limbs Dx/Plan - Plan 1. Toxic Metabolic Encephalopathy - improving 2. Thyroid enlargement with abn antithyroglobulin antibodies 3. Par Afib - on Anticoag 4. HTN 5. h/o CVA 6. DM2 / CKD 2 /s/p TAVR / Recent hospitalization at [facility] for Encephalopathy PLAN: Change IVF to NS CT guided thyroid biopsy per ENT on Monday - Will dc Eliquis after AM dose - I d /w radiologist Cont other meds as below Steroids changed to PO AM labs Laboratory Tests 05/20/18 05/20/18 11:52 11:52 Neuronal Nuc Ab (Hu/Ri) <1:10 Thyroglobulin Antibody 771.0 H Thyroid Peroxidase IgG Less than 4.0 Review of Systems - Review of Systems Respiratory: negative: Cough, Dry, Shortness of Breath, Hemoptysis, SOB with Excertion, Pleuritic Pain, Sputum, Wheezing Cardiovascular: negative: chest pain, palpitations, orthopnea, paroxysmal nocturnal dyspnea, edema, light headedness, other - Medications/Allergies Allergies/Adverse Reactions: Allergies Allergy/AdvReac Type Severity Reaction Status Date / Time No Known Allergies Allergy Verified 05/19/18 14:06 Medications: Current Medications Acetaminophen (Tylenol) 650 mg PO Q4H PRN PRN Reason: Headache/Fever/Mild Pain (1-3) Acetaminophen (Tylenol) 650 mg [place] Q4H PRN PRN Reason: Headache/Fever/Mild Pain (1-3) Apixaban (Eliquis) 5 mg PO BID [facility] Stop: 05/25/18 10:00 Last Admin: 05/24/18 10:33 Dose: 5 mg Artificial Tears (Tears Naturale) 2 drop EA EYE PRN PRN PRN Reason: Dry Eyes Bisacodyl (Dulcolax) 10 mg [place] DAILYPRN PRN PRN Reason: Constipation Cyanocobalamin (Vitamin B-12) 1,000 mcg PO DAILY [facility] Last Admin: 05/24/18 09:27 Dose: 1,000 mcg Dextrose/Water (Dextrose 50%) 25 gm SLOW IVP PRN PRN PRN Reason: Hypoglycemia Docusate Sodium (Colace) 100 mg PO BID [facility] Last Admin: 05/24/18 09:27 Dose: 100 mg Dronedarone (Multaq) 400 mg PO BID [facility] Last Admin: 05/24/18 09:27 Dose: 400 mg Famotidine (Pepcid) 20 mg PO BID [facility] Last Admin: 05/24/18 09:27 Dose: 20 mg Folic Acid (Folvite) 1 mg PO DAILY [facility] Last Admin: 05/24/18 09:26 Dose: 1 mg Glucagon (Glucagon) 1 mg IM PRN PRN PRN Reason: Hypoglycemia Hydralazine HCl (Apresoline) 10 mg SLOW IVP Q4H PRN PRN Reason: SBP > 180 and HR < 70 Dextrose/Water (D5w) 1,000 mls @ 0 mls/hr IV .Q0M PRN PRN Reason: Hypoglycemia Sodium Chloride (Normal Saline 0.9%) 1,000 mls @ 50 mls/hr IV .Q20H [facility] Insulin Human Lispro (Humalog) 0 units SC .MODERATE SLIDING SC PRN PRN Reason: Moderate Correctional Scale Last Admin: 05/24/18 10:59 Dose: 6 unit Insulin Human Lispro (Humalog) 0 units SC .BEDTIME SLIDING SC PRN PRN Reason: Bedtime Correctional Scale Last Admin: 05/23/18 22:50 Dose: 3 units Labetalol HCl (Normodyne) 20 mg SLOW IVP Q4H PRN PRN Reason: SBP > 180 and HR >/= 70 Mineral Oil/White Petrolatum (Eucerin Cream) 0 gm TOP BIDPRN PRN PRN Reason: Dry Skin Multivitamins (Theragran) 1 tab PO DAILY [facility] Last Admin: 05/24/18 09:26 Dose: 1 tab Pred[facility]one (Pred[facility]) [facility] Last Admin: 05/24/18 09:27 Dose: 60 mg Quetiapine Fumarate (Seroquel) 100 mg PO HS [facility] Last Admin: 05/23/18 20:40 Dose: 100 mg Rosuvastatin Calcium (Crestor) 40 mg PO [facility] Last Admin: 05/22/18 21:18 Dose: 40 mg Sodium Chloride ([place] Nasal [place] 0.65%) 0 ml EA NARE QIDPRN PRN PRN Reason: Nasal Congestion Sodium Chloride (Flush - Normal Saline) 10 ml IVF Q12HR [facility] Last Admin: 05/24/18 09:30 Dose: 10 ml Sodium Chloride (Flush - Normal Saline) 10 ml IVF PRN PRN PRN Reason: Saline Flush Sterile Water (Water For Injection) 10 ml FS Q12H PRN PRN Reason: TO RECONSTITUTE ZIPRASIDONE Last Admin: 05/20/18 16:32 Dose: 10 ml Thiamine HCl (Thiamine) 100 mg PO DAILY [facility] Last Admin: 05/24/18 09:26 Dose: 100 mg Ziprasidone (Geodon) 20 mg IM Q12H PRN PRN Reason: Agitation Last Admin: 05/22/18 22:32 Dose: 20 mg
[2018-05-24] MEDS: Sodium Chloride 0.9% 1,000 ML IV SCH (12:58)
--- NOTE | 2018-05-25 01:46 | PRG ---
DATE OF SERVICE: 05/24/2018 CONSULTING PHYSICIAN: Hospitalist Service. SUBJECTIVE: Mr. Poole continues to have abnormal speech patterns today, has repetitive discussion about the alphabet. He had continued restless night which is mostly attributable to his need to urinate multiple times through the night. He was fairly lucid this morning and actually was conversant enough closer to normal pattern. He is a bit more confused today, sitting at the bedside, having supper on his own. ENT has evaluated and is planning a biopsy of the thyroid mass on Monday. We will continue the oral steroids and Seroquel at night. Continue to monitor his care. Job ID: [id number]
[2018-05-25 05:43] LABS: Anion Gap 6 mmol/L (10-20); BUN (Urea Nitrogen) 25 mg/dL (8.4-25.7); Calc. Creatinine Clearance 63 mL/min (70-130); Calcium 8.7 mg/dL (7.8-10.44); Carbon Dioxide 28 mmol/L (23-31); Chloride 105 mmol/L (98-107); Estimated GFR-MDRD Greater than 90; Glucose 150 mg/dL (83-110); Potassium 4.3 mmol/L (3.5-5.1); Sodium 135 mmol/L (136-145)
[2018-05-25 05:50] LABS: Hemoglobin 11.9 g/dL (14.0-18.0); Platelet Count 138 thou/uL (130-400)
[2018-05-25] MEDS: predniSONE 20 MG TAB PO SCH (08:37)
[2018-05-25] MEDS: Apixaban 5 MG TAB PO SCH (08:37)
[2018-05-25] MEDS: Docusate 100 MG CAP PO SCH ×2 (08:37→19:59)
[2018-05-25] MEDS: Multivit, Therapeutic 1 TAB PO SCH (08:37)
[2018-05-25] MEDS: Dronedarone HCl 400 MG TAB PO SCH ×2 (08:37→19:59)
[2018-05-25] MEDS: Folic Acid 1 MG TAB PO SCH (08:37)
[2018-05-25] MEDS: Cyanocobalamin (Vitamin B-12) 1,000 MCG TAB PO SCH (08:37)
[2018-05-25] MEDS: HumaLOG 300 UNITS/3 ML VIAL SC PRN ×2 (11:06→16:51)
--- NOTE | 2018-05-25 13:55 | PRG ---
DATE OF SERVICE: 05/25/2018 FOLLOWUP NEUROLOGY NOTE COVERING FOR: Rayo Barrios MD REASON FOR NEUROLOGY FOLLOWUP: Altered mental status. HISTORY: The patient has been noted to be talking almost nonstop. He repeats himself a lot and he does answer some questions accurately like he stated what year it was and his correct age. He was noted to not sleep last night or anytime during the day. He does not really appear to be agitated, but he talks a lot. He was noted to feed himself breakfast and he uses his right hand and uses utensils. A sitter is present with him 24 hours because he tends to get up a lot during the night. PHYSICAL EXAMINATION: NEUROLOGIC: On exam, he is awake and alert. He is calm, but he is talking a lot. He states that this is 2017 and it is the th month. He does not know the exact date in April. He gives his correct age of 88. Cranial nerves II through XII are normal. Motor, 5/5 strength. DTRs 2+. Toes downgoing. Sensation is normal. Coordination is normal. LUNGS: Clear. HEART: No murmurs or gallops. EXTREMITIES: No clubbing, cyanosis, or edema. There are some skin tears noted on his arms. LABORATORY DATA: Labs on May 25 showed hemoglobin of 11.9, hematocrit of 36.5, and platelet count 138,000. Glucose is 195, sodium is 135, glucose 150, BUN 25, chloride 105, and CO2 is 28. Note that, his thyroglobulin antibody was elevated at 771, normal is less than 40. He had a CT scan of the soft tissue of the neck, which showed a 5.5 x 2.5 x 4 cm mass in the left thyroid lobe, note that a biopsy is pending on that. He also has a history of aortic valve replacement and atrial fibrillation and had been on anticoagulant medication, that is on hold now pending his biopsy. MEDICATIONS: 1. He has been on B12 of 1000 mcg a day. 2. He is also on Geodon 20 mg IM q.12 hours. 3. Thiamine 100 mg a day. 4. Seroquel 100 mg q.h.s. 5. He is on prednisone 60 mg q.a.m. 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 IMAGING STUDIES: He had an EEG, which was normal. CT of the brain which was done on May 19 showed some [id number] atrophy, but no acute infarctions. IMPRESSION: Encephalopathy, possibly thyroiditis. He seems to be a little bit calmer, possibly he is somewhat confused because of lack of sleep and possibly from the steroids as well and possibly also from Benny encephalopathy. PLAN: Continue with the sitter and continue with the steroids, which has been lowered from what it was at the beginning. Also, continue with the Seroquel and the B12 vitamins. The Geodon is ordered q.12 hours p.r.n. Job ID: [id number]
--- NOTE | 2018-05-25 16:01 | PDOC.PN ---
- Subjective Encounter Start Date: 05/25/18 Encounter Start Time: 08:30 Patient seen and examined for Encephalopathy. Mentation still the same. No new complaints. No overnight events - Objective Resuscitation Status - Order Detail: 05/22/18 12:05 Resuscitation Status Routine Resuscitation Status: FULL: Full Resuscitation Discussed with: Per previous order MAR Reviewed: Yes Vital Signs & Weight: Vital Signs (12 hours) Temp Pulse Resp BP Pulse Ox 05/25/18 15:37 97.9 F 75 18 132/73 98 05/25/18 11:43 97.5 F L 76 18 133/63 97 05/25/18 08:00 97.4 F L 68 20 171/81 H 97 05/25/18 07:25 96 05/25/18 04:00 97.4 F L 71 18 145/69 H 97 Weight Weight 149 lb I&O: 05/24/18 05/25/18 05/26/18 06:59 06:59 06:59 Intake Total 1477 600 Output Total 250 Balance 1227 600 Result Diagrams: 05/25/18 05:14 05/25/18 05:14 Additional Labs: Accuchecks 05/25/18 05/25/18 05/25/18 11:01 05:42 00:20 POC Glucose 195 H 139 H 177 H 05/24/18 05/24/18 05/24/18 21:37 20:00 17:32 POC Glucose 219 H 277 H 256 H EKG Reviewed by me: Yes (Tele SR) Phys Exam - Physical Examination Constitutional: NAD Respiratory: no wheezing, no rhonchi Cardiovascular: RRR, no rub Gastrointestinal: soft, non-tender, positive bowel sounds Musculoskeletal: no edema Neurological: moves all 4 limbs Dx/Plan - Plan DVT proph w/SCDs 1. 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 Thyroid enlargement with abn antithyroglobulin antibodies 3. Par Afib - on Anticoag 4. HTN 5. h/o CVA 6. DM2 / CKD 2 /s/p TAVR / Recent hospitalization at [facility] for Encephalopathy PLAN: CT guided thyroid biopsy on Monday - Eliquis on hold Cont other meds as below Cont PO Steroids AM labs Check Thyroglubulin antibody in AM per family req Review of Systems - Review of Systems Respiratory: negative: Cough, Dry, Shortness of Breath, Hemoptysis, SOB with Excertion, Pleuritic Pain, Sputum, Wheezing Cardiovascular: negative: chest pain, palpitations, orthopnea, paroxysmal nocturnal dyspnea, edema, light headedness, other - Medications/Allergies Allergies/Adverse Reactions: Allergies Allergy/AdvReac Type Severity Reaction Status Date / Time No Known Allergies Allergy Verified 05/19/18 14:06 Medications: Current Medications Acetaminophen (Tylenol) 650 mg PO Q4H PRN PRN Reason: Headache/Fever/Mild Pain (1-3) Acetaminophen (Tylenol) 650 mg [place] Q4H PRN PRN Reason: Headache/Fever/Mild Pain (1-3) Artificial Tears (Tears Naturale) 2 drop EA EYE PRN PRN PRN Reason: Dry Eyes Bisacodyl (Dulcolax) 10 mg [place] DAILYPRN PRN PRN Reason: Constipation Cyanocobalamin (Vitamin B-12) 1,000 mcg PO DAILY [facility] Last Admin: 05/25/18 08:37 Dose: 1,000 mcg Dextrose/Water (Dextrose 50%) 25 gm SLOW IVP PRN PRN PRN Reason: Hypoglycemia Docusate Sodium (Colace) 100 mg PO BID [facility] Last Admin: 05/25/18 08:37 Dose: 100 mg Dronedarone (Multaq) 400 mg PO BID [facility] Last Admin: 05/25/18 08:37 Dose: 400 mg Folic Acid (Folvite) 1 mg PO DAILY [facility] Last Admin: 05/25/18 08:37 Dose: 1 mg Glucagon (Glucagon) 1 mg IM PRN PRN PRN Reason: Hypoglycemia Hydralazine HCl (Apresoline) 10 mg SLOW IVP Q4H PRN PRN Reason: SBP > 180 and HR < 70 Dextrose/Water (D5w) 1,000 mls @ 0 mls/hr IV .Q0M PRN PRN Reason: Hypoglycemia Sodium Chloride (Normal Saline 0.9%) 1,000 mls @ 50 mls/hr IV .Q20H [facility] Last Admin: 05/24/18 12:58 Dose: 1,000 mls Insulin Human Lispro (Humalog) 0 units SC .MODERATE SLIDING SC PRN PRN Reason: Moderate Correctional Scale Last Admin: 05/25/18 11:06 Dose: 2 unit Insulin Human Lispro (Humalog) 0 units SC .BEDTIME SLIDING SC PRN PRN Reason: Bedtime Correctional Scale Last Admin: 05/23/18 22:50 Dose: 3 units Labetalol HCl (Normodyne) 20 mg SLOW IVP Q4H PRN PRN Reason: SBP > 180 and HR >/= 70 Mineral Oil/White Petrolatum (Eucerin Cream) 0 gm TOP BIDPRN PRN PRN Reason: Dry Skin Multivitamins (Theragran) 1 tab PO DAILY [facility] Last Admin: 05/25/18 08:37 Dose: 1 tab Prednisone (Prednisone) 60 mg PO QAM [facility] Last Admin: 05/25/18 08:37 Dose: 60 mg Quetiapine Fumarate (Seroquel) 100 mg PO HS [facility] Last Admin: 05/24/18 20:01 Dose: 100 mg Rosuvastatin Calcium (Crestor) 40 mg PO HS [facility] Last Admin: 05/22/18 21:18 Dose: 40 mg Sodium Chloride ([place] Nasal [place] 0.65%) 0 ml EA NARE QIDPRN PRN PRN Reason: Nasal Congestion Sodium Chloride (Flush - Normal Saline) 10 ml IVF Q12HR [facility] Last Admin: 05/25/18 08:37 Dose: Not Given Sodium Chloride (Flush - Normal Saline) 10 ml IVF PRN PRN PRN Reason: Saline Flush Sterile Water (Water For Injection) 10 ml FS Q12H PRN PRN Reason: TO RECONSTITUTE ZIPRASIDONE Last Admin: 05/20/18 16:32 Dose: 10 ml Temazepam (Restoril) 15 mg PO HSPRN PRN PRN Reason: Insomnia Thiamine HCl (Thiamine) 100 mg PO DAILY [facility] Last Admin: 05/25/18 08:37 Dose: 100 mg Ziprasidone (Geodon) 20 mg IM Q12H PRN PRN Reason: Agitation Last Admin: 05/22/18 22:32 Dose: 20 mg
[2018-05-25] MEDS: Sodium Chloride 0.9% 1,000 ML IV SCH (16:09)
[2018-05-25] MEDS: Ziprasidone 20 MG VIAL IM PRN (19:52)
[2018-05-25] MEDS: Temazepam 15 MG CAP PO PRN (19:59)
[2018-05-26 06:17] LABS: Anion Gap 7 mmol/L (10-20); BUN (Urea Nitrogen) 19 mg/dL (8.4-25.7); Calc. Creatinine Clearance 72 mL/min (70-130); Carbon Dioxide 25 mmol/L (23-31); Chloride 107 mmol/L (98-107); Estimated GFR-MDRD Greater than 90; Glucose 117 mg/dL (83-110); Potassium 4.4 mmol/L (3.5-5.1); Sodium 135 mmol/L (136-145)
[2018-05-26] MEDS: Docusate 100 MG CAP PO SCH ×2 (08:55→19:58)
[2018-05-26] MEDS: Cyanocobalamin (Vitamin B-12) 1,000 MCG TAB PO SCH (08:55)
[2018-05-26] MEDS: Multivit, Therapeutic 1 TAB PO SCH (08:56)
[2018-05-26] MEDS: Folic Acid 1 MG TAB PO SCH (08:56)
[2018-05-26] MEDS: Dronedarone HCl 400 MG TAB PO SCH ×2 (08:56→19:58)
[2018-05-26] MEDS: predniSONE 20 MG TAB PO SCH (08:57)
--- NOTE | 2018-05-26 12:28 | PDOC.PN ---
- Subjective Encounter Start Date: 05/26/18 Encounter Start Time: 08:30 Patient seen and examined for Encephalopathy. Mentation improving. No new complaints. No overnight events - Objective Resuscitation Status - Order Detail: 05/22/18 12:05 Resuscitation Status Routine Resuscitation Status: FULL: Full Resuscitation Discussed with: Per previous order MAR Reviewed: Yes Vital Signs & Weight: Vital Signs (12 hours) Temp Pulse Resp BP BP Pulse Ox 05/26/18 11:55 87 20 166/79 H 97 05/26/18 07:30 97.8 F 69 20 161/75 H 97 05/26/18 04:00 97.1 F L 73 19 141/69 H 97 Weight Weight 149 lb I&O: 05/25/18 05/26/18 05/27/18 06:59 06:59 06:59 Intake Total 900 300 Output Total 250 Balance 650 300 Result Diagrams: 05/25/18 05:14 05/26/18 05:47 Additional Labs: Accuchecks 05/26/18 05/26/18 05/25/18 10:46 05:47 20:03 POC Glucose 136 H 117 H 198 H 05/25/18 16:40 POC Glucose 196 H EKG Reviewed by me: Yes (Tele SR) Phys Exam - Physical Examination Constitutional: NAD Sitting on chair Respiratory: no wheezing, no rhonchi Cardiovascular: RRR, no rub Gastrointestinal: soft, non-tender, positive bowel sounds Musculoskeletal: no edema, edema present Neurological: moves all 4 limbs Dx/Plan - Plan DVT proph w/SCDs 1. 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 Par Afib - on Anticoag 4. HTN 5. h/o CVA 6. DM2 / CKD 2 /s/p TAVR / Recent hospitalization at [facility] for Encephalopathy PLAN: CT guided thyroid biopsy on Monday Eliquis on hold On Seroquel with Restoril HS per Neurology Cont PO Steroids for possible thyroiditis per Neuro AM labs Thyroglobulin antibody level pending Review of Systems - Review of Systems Respiratory: negative: Cough, Dry, Shortness of Breath, Hemoptysis, SOB with Excertion, Pleuritic Pain, Sputum, Wheezing Cardiovascular: negative: chest pain, palpitations, orthopnea, paroxysmal nocturnal dyspnea, edema, light headedness, other - Medications/Allergies Allergies/Adverse Reactions: Allergies Allergy/AdvReac Type Severity Reaction Status Date / Time No Known Allergies Allergy Verified 05/19/18 14:06 Medications: Current Medications Acetaminophen (Tylenol) 650 mg PO Q4H PRN PRN Reason: Headache/Fever/Mild Pain (1-3) Acetaminophen (Tylenol) 650 mg [place] Q4H PRN PRN Reason: Headache/Fever/Mild Pain (1-3) Artificial Tears (Tears Naturale) 2 drop EA EYE PRN PRN PRN Reason: Dry Eyes Bisacodyl (Dulcolax) 10 mg [place] DAILYPRN PRN PRN Reason: Constipation Cyanocobalamin (Vitamin B-12) 1,000 mcg PO DAILY [facility] Last Admin: 05/26/18 08:55 Dose: 1,000 mcg Dextrose/Water (Dextrose 50%) 25 gm SLOW IVP PRN PRN PRN Reason: Hypoglycemia Docusate Sodium (Colace) 100 mg PO BID [facility] Last Admin: 05/26/18 08:55 Dose: 100 mg Dronedarone (Multaq) 400 mg PO BID [facility] Last Admin: 05/26/18 08:56 Dose: 400 mg Folic Acid (Folvite) 1 mg PO DAILY [facility] Last Admin: 05/26/18 08:56 Dose: 1 mg Glucagon (Glucagon) 1 mg IM PRN PRN PRN Reason: Hypoglycemia Hydralazine HCl (Apresoline) 10 mg SLOW IVP Q4H PRN PRN Reason: SBP > 180 and HR < 70 Dextrose/Water (D5w) 1,000 mls @ 0 mls/hr IV .Q0M PRN PRN Reason: Hypoglycemia Sodium Chloride (Normal Saline 0.9%) 1,000 mls @ 50 mls/hr IV .Q20H [facility] Last Admin: 05/25/18 16:09 Dose: 1,000 mls Insulin Human Lispro (Humalog) 0 units SC .MODERATE SLIDING SC PRN PRN Reason: Moderate Correctional Scale Last Admin: 05/25/18 16:51 Dose: 2 unit Insulin Human Lispro (Humalog) 0 units SC .BEDTIME SLIDING SC PRN PRN Reason: Bedtime Correctional Scale Last Admin: 05/23/18 22:50 Dose: 3 units Labetalol HCl (Normodyne) 20 mg SLOW IVP Q4H PRN PRN Reason: SBP > 180 and HR >/= 70 Mineral Oil/White Petrolatum (Eucerin Cream) 0 gm TOP BIDPRN PRN PRN Reason: Dry Skin Multivitamins (Theragran) 1 tab PO DAILY [facility] Last Admin: 05/26/18 08:56 Dose: 1 tab Prednisone (Prednisone) 60 mg PO QAM [facility] Last Admin: 05/26/18 08:57 Dose: 60 mg Quetiapine Fumarate (Seroquel) 100 mg PO HS [facility] Last Admin: 05/25/18 19:59 Dose: 100 mg Rosuvastatin Calcium (Crestor) 40 mg PO HS [facility] Last Admin: 05/22/18 21:18 Dose: 40 mg Sodium Chloride ([place] Nasal [place] 0.65%) 0 ml EA NARE QIDPRN PRN PRN Reason: Nasal Congestion Sodium Chloride (Flush - Normal Saline) 10 ml IVF Q12HR [facility] Last Admin: 05/26/18 08:55 Dose: Not Given Sodium Chloride (Flush - Normal Saline) 10 ml IVF PRN PRN PRN Reason: Saline Flush Sterile Water (Water For Injection) 10 ml [place] Q12H PRN PRN Reason: TO RECONSTITUTE ZIPRASIDONE Last Admin: 05/20/18 16:32 Dose: 10 ml Temazepam (Restoril) 15 mg PO HSPRN PRN PRN Reason: Insomnia Last Admin: 05/25/18 19:59 Dose: 15 mg Thiamine HCl (Thiamine) 100 mg PO DAILY [facility] Last Admin: 05/26/18 08:56 Dose: 100 mg Ziprasidone (Geodon) 20 mg IM Q12H PRN PRN Reason: Agitation Last Admin: 05/25/18 19:52 Dose: 20 mg
[2018-05-26] MEDS: Ziprasidone 20 MG VIAL IM PRN (12:36)
[2018-05-26] MEDS: Sterile Water 10 ML VIAL FS PRN (12:36)
[2018-05-26] MEDS: Sodium Chloride 0.9% 1,000 ML IV SCH (12:43)
[2018-05-26] MEDS ORDERED: Diabetic Tussin 200 MG/10 ML UDCUP PO PRN (13:28)
--- NOTE | 2018-05-26 16:38 | PRG ---
DATE OF SERVICE: 05/26/2018 TYPE OF REPORT: Followup Neurology Note HISTORY OF PRESENT ILLNESS: The patient is being followed neuro villagran for mental status changes. His daughter and and ella are present today. They states that he is little bit calmer. He did sleep some last night with the Restoril 15 mg, but he got more agitated today, so about half an hour ago, he received some Geodon and now he is little bit more lethargic. His anticoagulation is still on hold pending a biopsy of the thyroid mass on Monday. The patient does not have any other complaints, other than they state that he is not eating very much. He only took 2 bites of veronica for breakfast, hardly ate any lunch at all. The patient's family would like his diet liberalized, so that he can get some ice-cream and eat some fried chicken since he is not eating anything at all basically. PHYSICAL EXAMINATION: GENERAL: On exam, he is awake and alert. He is kind of lethargic at this time, but still trying to interact. He threw a couple of things at me. Threw a napkin. He seems to be doing this in a playful manner. He wanted me to look at the urrutia on the television. There are some urrutia on the television. 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 He grew up on a farm in [place] and he told me that yesterday. Today, he is little bit more and confused, but he just had the Geodon, so it is probably from that. VITAL SIGNS: His blood pressure 166/79, respiratory rate 16, pulse 87. NEUROLOGIC: Mental status, he is not cooperative, fairly calm, trying to talk, but not really making much sense. He does seem to recognize his and daughter and ella. He did call his stepson by name appropriately. The patient cannot or will not tell me his age at this time or where he is. Motor, he moves all extremities very well. Sensation is normal. There is no definite aphasia. HEENT: Negative. 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 Possibly, there is contributing factor from the prednisone, which was being used to treat the Benny's thyroiditis. Cannot rule the degree of underlying dementia, but his family states that he was good until all of this started couple of weeks ago. PLAN: We will continue the Restoril 15 mg at bedtime p.r.n. I recommended that his diet tried to be liberalized, so that he can eat because he definitively needs to have some nutrition. He can continue with the Seroquel 100 mg at bedtime and the Geodon, if needed. A sitter should be present at all times for safety. Job ID: [id number]
--- NOTE | 2018-05-26 16:47 | EKG ---
Test Reason : Blood Pressure : / mmHG Vent. Rate : 085 BPM Atrial Rate : 085 BPM P-R Int : 118 ms QRS Dur : 078 ms QT Int : 370 ms P-R-T Axes : 025 -12 007 degrees QTc Int : 440 ms Normal sinus rhythm Low voltage QRS Inferior infarct , age undetermined Abnormal ECG Confirmed by ESTRELLITA YOUSSEF, MICHI ([id number]), deputy editor in chief MOHINI GARCIA ([id number] on 05/26/2018 4:46:37 PM Referred By: Confirmed By:MICHI HARO MD
[2018-05-26] MEDS: HumaLOG 300 UNITS/3 ML VIAL SC PRN (17:12)
[2018-05-26] MEDS: Temazepam 15 MG CAP PO PRN (19:58)
[2018-05-27] MEDS: Docusate 100 MG CAP PO SCH ×2 (08:53→20:04)
[2018-05-27] MEDS: Cyanocobalamin (Vitamin B-12) 1,000 MCG TAB PO SCH (08:53)
[2018-05-27] MEDS: Sodium Chloride 0.9% 1,000 ML IV SCH (08:54)
[2018-05-27] MEDS: Folic Acid 1 MG TAB PO SCH (08:54)
[2018-05-27] MEDS: Dronedarone HCl 400 MG TAB PO SCH ×2 (08:54→20:10)
[2018-05-27] MEDS: Multivit, Therapeutic 1 TAB PO SCH (08:54)
[2018-05-27] MEDS: pyridOXINE 50 MG (B6) TAB PO SCH (08:54)
[2018-05-27] MEDS: predniSONE 20 MG TAB PO SCH (08:54)
--- NOTE | 2018-05-27 15:50 | PDOC.PN ---
- Subjective Encounter Start Date: 05/27/18 Encounter Start Time: 08:30 Patient seen and examined for AMS. No new complaints. No overnight events - Objective Resuscitation Status - Order Detail: 05/22/18 12:05 Resuscitation Status Routine Resuscitation Status: FULL: Full Resuscitation Discussed with: Per previous order MAR Reviewed: Yes Vital Signs & Weight: Vital Signs (12 hours) Temp Pulse Resp BP BP Pulse Ox 05/27/18 15:23 98.4 F 98 16 158/78 H 96 05/27/18 11:35 98 F 89 16 147/82 H 99 05/27/18 08:00 98.1 F 75 14 167/75 H 92 L 05/27/18 04:00 97.3 F L 73 20 122/88 97 Weight Weight 149 lb I&O: 05/26/18 05/27/18 05/28/18 06:59 06:59 06:59 Intake Total 900 600 720 Output Total 250 Balance 650 600 720 Result Diagrams: 05/25/18 05:14 05/26/18 05:47 Additional Labs: Accuchecks 05/27/18 05/27/18 05/26/18 10:29 06:02 20:09 POC Glucose 119 H 100 156 H 05/26/18 16:28 POC Glucose 182 H EKG Reviewed by me: Yes (Tele SR) Phys Exam - Physical Examination Constitutional: NAD Respiratory: no wheezing, no rhonchi Cardiovascular: RRR, no rub Gastrointestinal: soft, non-tender, positive bowel sounds Musculoskeletal: no edema Neurological: moves all 4 limbs Dx/Plan - Plan DVT proph w/SCDs 1. 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 Par Afib - on Anticoag 4. HTN 5. h/o CVA 6. DM2 / CKD 2 /s/p TAVR / Recent hospitalization at [facility] for Encephalopathy PLAN: CT guided thyroid biopsy in AM Eliquis on hold On Seroquel with Restoril HS PRN per Neurology on PO Steroids for possible thyroiditis per Neuro AM labs Thyroglobulin antibody level pending Review of Systems - Review of Systems Respiratory: negative: Cough, Dry, Shortness of Breath, Hemoptysis, SOB with Excertion, Pleuritic Pain, Sputum, Wheezing Cardiovascular: negative: chest pain, palpitations, orthopnea, paroxysmal nocturnal dyspnea, edema, light headedness, other - Medications/Allergies Allergies/Adverse Reactions: Allergies Allergy/AdvReac Type Severity Reaction Status Date / Time No Known Allergies Allergy Verified 05/19/18 14:06 Medications: Current Medications Acetaminophen (Tylenol) 650 mg PO Q4H PRN PRN Reason: Headache/Fever/Mild Pain (1-3) Acetaminophen (Tylenol) 650 mg [place] Q4H PRN PRN Reason: Headache/Fever/Mild Pain (1-3) Artificial Tears (Tears Naturale) 2 drop EA EYE PRN PRN PRN Reason: Dry Eyes Bisacodyl (Dulcolax) 10 mg [place] DAILYPRN PRN PRN Reason: Constipation Cyanocobalamin (Vitamin B-12) 1,000 mcg PO DAILY [facility] Last Admin: 05/27/18 08:53 Dose: 1,000 mcg Dextrose/Water (Dextrose 50%) 25 gm SLOW IVP PRN PRN PRN Reason: Hypoglycemia Docusate Sodium (Colace) 100 mg PO BID [facility] Last Admin: 05/27/18 08:53 Dose: 100 mg Dronedarone (Multaq) 400 mg PO BID [facility] Last Admin: 05/27/18 08:54 Dose: 400 mg Folic Acid (Folvite) 1 mg PO DAILY [facility] Last Admin: 05/27/18 08:54 Dose: 1 mg Glucagon (Glucagon) 1 mg IM PRN PRN PRN Reason: Hypoglycemia Guaifenesin (Robitussin Sf) 200 mg PO Q4H PRN PRN Reason: Cough Last Admin: 05/26/18 13:42 Dose: 200 mg Hydralazine HCl (Apresoline) 10 mg SLOW IVP Q4H PRN PRN Reason: SBP > 180 and HR < 70 Dextrose/Water (D5w) 1,000 mls @ 0 mls/hr IV .Q0M PRN PRN Reason: Hypoglycemia Sodium Chloride (Normal Saline 0.9%) 1,000 mls @ 50 mls/hr IV .Q20H [facility] Last Admin: 05/27/18 08:54 Dose: 1,000 mls Insulin Human Lispro (Humalog) 0 units [place] .MODERATE SLIDING SC PRN PRN Reason: Moderate Correctional Scale Last Admin: 05/26/18 17:12 Dose: 2 unit Insulin Human Lispro (Humalog) 0 units SC .BEDTIME SLIDING SC PRN PRN Reason: Bedtime Correctional Scale Last Admin: 05/23/18 22:50 Dose: 3 units Labetalol HCl (Normodyne) 20 mg SLOW IVP Q4H PRN PRN Reason: SBP > 180 and HR >/= 70 Mineral Oil/White Petrolatum (Eucerin Cream) 0 gm TOP BIDPRN PRN PRN Reason: Dry Skin Multivitamins (Theragran) 1 tab PO DAILY [facility] Last Admin: 05/27/18 08:54 Dose: 1 tab Pred[facility]one (Pred[facility]one) [facility] Last Admin: 05/27/18 08:54 Dose: 60 mg Pyridoxine HCl (Vitamin B 6) 50 mg PO DAILY [facility] Last Admin: 05/27/18 08:54 Dose: 50 mg Quetiapine Fumarate (Seroquel) 100 mg PO HS [facility] Last Admin: 05/26/18 19:58 Dose: 100 mg Rosuvastatin Calcium (Crestor) 40 mg PO HS [facility] Last Admin: 05/22/18 21:18 Dose: 40 mg Sodium Chloride ([place] Nasal [place] 0.65%) 0 ml EA NARE QIDPRN PRN PRN Reason: Nasal Congestion Sodium Chloride (Flush - Normal Saline) 10 ml IVF Q12HR [facility] Last Admin: 05/27/18 08:55 Dose: Not Given Sodium Chloride (Flush - Normal Saline) 10 ml IVF PRN PRN PRN Reason: Saline Flush Sterile Water (Water For Injection) 10 ml FS Q12H PRN PRN Reason: TO RECONSTITUTE ZIPRASIDONE Last Admin: 05/26/18 12:36 Dose: 10 ml Temazepam (Restoril) 15 mg PO HSPRN PRN PRN Reason: Insomnia Last Admin: 05/26/18 19:58 Dose: 15 mg Thiamine HCl (Thiamine) 100 mg PO DAILY [facility] Last Admin: 05/27/18 08:54 Dose: 100 mg Ziprasidone (Geodon) 20 mg IM Q12H PRN PRN Reason: Agitation Last Admin: 05/26/18 12:36 Dose: 20 mg
[2018-05-27 17:07] LABS: EliA Thy New Method **** NEW METHOD ****
[2018-05-27] MEDS: HumaLOG 300 UNITS/3 ML VIAL SC PRN (17:46)
[2018-05-27] MEDS: Temazepam 15 MG CAP PO PRN (20:12)
[2018-05-28 06:23] LABS: Hemoglobin 11.8 g/dL (14.0-18.0); Platelet Count 130 thou/uL (130-400)
[2018-05-28 06:34] LABS: Anion Gap 8 mmol/L (10-20); BUN (Urea Nitrogen) 19 mg/dL (8.4-25.7); Calc. Creatinine Clearance 66 mL/min (70-130); Calcium 8.2 mg/dL (7.8-10.44); Carbon Dioxide 24 mmol/L (23-31); Chloride 105 mmol/L (98-107); Estimated GFR-MDRD Greater than 90; Glucose 88 mg/dL (83-110); Potassium 4.1 mmol/L (3.5-5.1); Sodium 133 mmol/L (136-145)
--- NOTE | 2018-05-28 07:51 | PRG ---
DATE OF SERVICE: 05/27/2018 TYPE OF REPORT: Followup neurology note HISTORY OF PRESENT ILLNESS: The patient is being followed up for confusion. He has no complaints today. OBJECTIVE: GENERAL: On exam, he is awake and alert. He is rambling at this time and not really answering questions. He follows command sometimes. VITAL SIGNS: Blood pressure is 158/78, temperature is 98.4, pulse is 98, respiratory rate is 16. NEUROLOGIC: Cranial nerves 2 through 12 test normal. Motor 5/5 strength. DTRs 2+. LABORATORY DATA: Review of labs showed hemoglobin of 11.9 and hematocrit 36.5 on 05/25/2018. Glucose at 04:39 p.m. on 05/27/2018 is 220. His thyroglobulin antibody on May 20 was 771 which is elevated, normal range is less than 40. The CT of the brain that was done on May 19 showed some [id number] atrophy. IMPRESSION: Encephalopathy, may be related to Ebnny thyroiditis and may be exacerbated by the prednisone, which is being used to treat the Benny thyroiditis. PLAN: We will continue the Seroquel 100 mg at bedtime and the Restoril 15 mg at bedtime which seems to have helped him calm down a little bit, the Geodon has been given p.r.n. if needed. A sitter should be present all the times for safety. Note that his thyroid biopsy is pending. Job ID: [id number]
[2018-05-28] MEDS: Docusate 100 MG CAP PO SCH ×2 (10:28→20:03)
[2018-05-28] MEDS: Dronedarone HCl 400 MG TAB PO SCH ×2 (10:28→20:03)
[2018-05-28] MEDS ORDERED: Midazolam HCl 2 mg/2 ml Vial ONE (12:37)
[2018-05-28] MEDS: Sodium Chloride 0.9% 1,000 ML IV SCH (12:38)
[2018-05-28] MEDS ORDERED: Fentanyl 100 MCG/2 ML VIAL ONE (12:38)
[2018-05-28] MEDS: Ziprasidone 20 MG VIAL IM PRN (12:38)
[2018-05-28] MEDS ORDERED: Sodium Bicarbonate 2.5 MEQ/5 ML VIAL ONE (12:38)
[2018-05-28] MEDS ORDERED: Midazolam HCl 2 mg/2 ml Vial SLOW IVP SCH (13:50)
[2018-05-28] MEDS ORDERED: Fentanyl 100 MCG/2 ML VIAL SLOW IVP SCH (13:50)
[2018-05-28] MEDS ORDERED: Acetaminophen 500 MG TAB PO PRN (15:15)
--- NOTE | 2018-05-28 15:56 | CT ---
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 TECHNIQUE: Proxy signed informed consent obtained. Patient was given medication on the floor by the nurse, as or dered by Dr. Sanchez. When the patient was brought to the CT suite, IV Versed 1.5 mg and IV fentanyl 75 mcg were given IV. The skin between the clavicular heads was prepared and draped in the usual steril e fashion. 25 gauge needle was used to apply buffered lidocaine. A different 25 gauge needle was used to aspirate the large substernal left thyroid mass under step CT guidance, using a window between th e clavicular heads. 25 gauge needle was used to aspirate the contents. The syringe and needle were gi candy to the explosive ordnance disposal technician from the pathology department. This was repeated three more times with three se parate sets of needles and syringes, for a total of four passes. The patient tolerated the procedure well. No complications. IMPRESSION: Technically successful 25 gauge fine needle aspiration biopsy of the large substernal left thyroid brittany ss x 4. POS: [facility]
[2018-05-28] MEDS: Cyanocobalamin (Vitamin B-12) 1,000 MCG TAB PO SCH (16:09)
[2018-05-28] MEDS: predniSONE 20 MG TAB PO SCH (16:09)
[2018-05-28] MEDS: Folic Acid 1 MG TAB PO SCH (16:09)
[2018-05-28] MEDS: Multivit, Therapeutic 1 TAB PO SCH (16:10)
[2018-05-28] MEDS: pyridOXINE 50 MG (B6) TAB PO SCH (16:10)
--- NOTE | 2018-05-28 19:58 | PDOC.PN ---
- Subjective Encounter Start Date: 05/28/18 Encounter Start Time: 09:00 Patient seen and examined for AMS. Still has intermittent confusion. No new complaints. No overnight events - Objective Resuscitation Status - Order Detail: 05/22/18 12:05 Resuscitation Status Routine Resuscitation Status: FULL: Full Resuscitation Discussed with: Per previous order MAR Reviewed: Yes Vital Signs & Weight: Vital Signs (12 hours) Temp Pulse Resp BP BP Pulse Ox 05/28/18 14:10 97.5 F L 73 16 105/57 L 96 05/28/18 11:46 98.4 F 97 20 143/84 H 99 Weight Weight 149 lb I&O: 05/27/18 05/28/18 05/29/18 06:59 06:59 06:59 Intake Total 600 1337 494 Balance 600 1337 494 Result Diagrams: 05/28/18 05:51 05/28/18 05:51 Additional Labs: Accuchecks 05/28/18 05/28/18 05/27/18 15:45 05:25 20:27 POC Glucose 109 93 144 H EKG Reviewed by me: Yes (Tele SR) Phys Exam - Physical Examination Constitutional: NAD Respiratory: no wheezing, no rhonchi Cardiovascular: RRR, no rub Gastrointestinal: soft, non-tender, positive bowel sounds Musculoskeletal: no edema Neurological: moves all 4 limbs Dx/Plan - Plan DVT proph w/SCDs 1. 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 Par Afib - on Anticoag 4. HTN 5. h/o CVA 6. DM2 / CKD 2 /s/p TAVR / Recent hospitalization at [facility] for Encephalopathy PLAN: Thyroid biopsy today Eliquis on hold Cont Seroquel with Restoril HS PRN per Neurology Cont PO Steroids for possible thyroiditis per Neuro AM labs Inpt Rehab eval Review of Systems - Review of Systems Other: Cannot obtain due to current mentation - Medications/Allergies Allergies/Adverse Reactions: Allergies Allergy/AdvReac Type Severity Reaction Status Date / Time No Known Allergies Allergy Verified 05/19/18 14:06 Medications: Current Medications Acetaminophen (Tylenol) 1,000 mg PO Q4H PRN PRN Reason: MINORPAIN Artificial Tears (Tears Naturale) 2 drop EA EYE PRN PRN PRN Reason: Dry Eyes Bisacodyl (Dulcolax) 10 mg [place] DAILYPRN PRN PRN Reason: Constipation Cyanocobalamin (Vitamin B-12) 1,000 mcg PO DAILY [facility] Last Admin: 05/28/18 16:09 Dose: 1,000 mcg Dextrose/Water (Dextrose 50%) 25 gm SLOW IVP PRN PRN PRN Reason: Hypoglycemia Docusate Sodium (Colace) 100 mg PO BID [facility] Last Admin: 05/28/18 10:28 Dose: Not Given Dronedarone (Multaq) 400 mg PO BID [facility] Last Admin: 05/28/18 10:28 Dose: Not Given Folic Acid (Folvite) 1 mg PO DAILY [facility] Last Admin: 05/28/18 16:09 Dose: 1 mg Glucagon (Glucagon) 1 mg IM PRN PRN PRN Reason: Hypoglycemia Guaifenesin (Robitussin Sf) 200 mg PO Q4H PRN PRN Reason: Cough Last Admin: 05/26/18 13:42 Dose: 200 mg Hydralazine HCl (Apresoline) 10 mg SLOW IVP Q4H PRN PRN Reason: SBP > 180 and HR < 70 Dextrose/Water (D5w) 1,000 mls @ 0 mls/hr IV .Q0M PRN PRN Reason: Hypoglycemia Sodium Chloride (Normal Saline 0.9%) 1,000 mls @ 50 mls/hr IV .Q20H [facility] Last Admin: 05/28/18 12:38 Dose: 1,000 mls Insulin Human Lispro (Humalog) 0 units SC .MODERATE SLIDING SC PRN PRN Reason: Moderate Correctional Scale Last Admin: 05/27/18 17:46 Dose: 4 unit Insulin Human Lispro (Humalog) 0 units SC .BEDTIME SLIDING SC PRN PRN Reason: Bedtime Correctional Scale Last Admin: 05/23/18 22:50 Dose: 3 units Labetalol HCl (Normodyne) 20 mg SLOW IVP Q4H PRN PRN Reason: SBP > 180 and HR >/= 70 Mineral Oil/White Petrolatum (Eucerin Cream) 0 gm TOP BIDPRN PRN PRN Reason: Dry Skin Multivitamins (Theragran) 1 tab PO DAILY [facility] Last Admin: 05/28/18 16:10 Dose: 1 tab Prednisone (Prednisone) 60 mg PO QAM [facility] Last Admin: 05/28/18 16:09 Dose: 60 mg Pyridoxine HCl (Vitamin B 6) 50 mg PO DAILY [facility] Last Admin: 05/28/18 16:10 Dose: 50 mg Quetiapine Fumarate (Seroquel) 100 mg PO HS [facility] Last Admin: 05/27/18 20:04 Dose: 100 mg Rosuvastatin Calcium (Crestor) 40 mg PO HS [facility] Last Admin: 05/22/18 21:18 Dose: 40 mg Sodium Chloride ([place] Nasal [place] 0.65%) 0 ml EA NARE QIDPRN PRN PRN Reason: Nasal Congestion Sodium Chloride (Flush - Normal Saline) 10 ml IVF Q12HR [facility] Last Admin: 05/28/18 10:28 Dose: Not Given Sodium Chloride (Flush - Normal Saline) 10 ml IVF PRN PRN PRN Reason: Saline Flush Sterile Water (Water For Injection) 10 ml FS Q12H PRN PRN Reason: TO RECONSTITUTE ZIPRASIDONE Last Admin: 05/26/18 12:36 Dose: 10 ml Temazepam (Restoril) 15 mg PO HSPRN PRN PRN Reason: Insomnia Last Admin: 05/27/18 20:12 Dose: 15 mg Thiamine HCl (Thiamine) 100 mg PO DAILY [facility] Last Admin: 05/28/18 16:10 Dose: 100 mg Ziprasidone (Geodon) 20 mg IM Q12H PRN PRN Reason: Agitation Last Admin: 05/28/18 12:38 Dose: 20 mg
[2018-05-28] MEDS: Temazepam 15 MG CAP PO PRN (20:04)
[2018-05-29] MEDS: Sodium Chloride 0.9% 1,000 ML IV SCH (05:58)
[2018-05-29] MEDS: Docusate 100 MG CAP PO SCH ×2 (08:00→20:37)
[2018-05-29] MEDS: predniSONE 20 MG TAB PO SCH (08:01)
[2018-05-29] MEDS: Dronedarone HCl 400 MG TAB PO SCH ×2 (08:01→20:37)
[2018-05-29] MEDS: pyridOXINE 50 MG (B6) TAB PO SCH (08:01)
[2018-05-29] MEDS: Folic Acid 1 MG TAB PO SCH (08:01)
[2018-05-29] MEDS: Multivit, Therapeutic 1 TAB PO SCH (08:01)
[2018-05-29] MEDS: Cyanocobalamin (Vitamin B-12) 1,000 MCG TAB PO SCH (08:01)
[2018-05-29] MEDS: Ziprasidone 20 MG VIAL IM PRN (11:32)
[2018-05-29] MEDS ORDERED: Lorazepam 2 MG/ML VIAL IM PRN (18:05)
[2018-05-29] MEDS: Temazepam 15 MG CAP PO PRN (20:38)
[2018-05-29] MEDS: HumaLOG 300 UNITS/3 ML VIAL SC PRN (20:45)
--- NOTE | 2018-05-29 21:46 | PDOC.PN ---
- Subjective Encounter Start Date: 05/29/18 Encounter Start Time: 19:00 Patient seen and examined for Encephalopathy. No overnight events - Objective Resuscitation Status - Order Detail: 05/22/18 12:05 Resuscitation Status Routine Resuscitation Status: FULL: Full Resuscitation Discussed with: Per previous order MAR Reviewed: Yes Vital Signs & Weight: Vital Signs (12 hours) Temp Pulse Resp BP Pulse Ox 05/29/18 20:00 99.3 F 108 H 20 153/76 H 96 05/29/18 15:59 84 20 119/78 94 L 05/29/18 11:45 97.8 F 88 16 157/79 H 95 Weight Weight 149 lb I&O: 05/28/18 05/29/18 05/30/18 06:59 06:59 06:59 Intake Total 1337 494 280 Balance 1337 494 280 Result Diagrams: 05/28/18 05:51 05/28/18 05:51 Additional Labs: Accuchecks 05/29/18 05/29/18 05/29/18 20:12 10:27 05:49 POC Glucose 209 H 117 H 131 H EKG Reviewed by me: Yes Phys Exam - Physical Examination Constitutional: NAD Respiratory: no wheezing, no rhonchi Cardiovascular: RRR, no rub Gastrointestinal: soft, non-tender, positive bowel sounds Musculoskeletal: no edema Neurological: moves all 4 limbs Dx/Plan - Plan plan discussed w/ family, DVT proph w/SCDs 1. 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 Par Afib - on Anticoag 4. HTN 5. h/o CVA 6. DM2 / CKD 2 /s/p TAVR / Recent hospitalization at [facility] for Encephalopathy PLAN: Thyroid biopsy results penind Resume Eliquis in AM Cont Seroquel and PO Steroids AM labs Inpt Rehab eval pending Review of Systems - Review of Systems Other: Cannot be obtained due to current mentation. - Medications/Allergies Allergies/Adverse Reactions: Allergies Allergy/AdvReac Type Severity Reaction Status Date / Time No Known Allergies Allergy Verified 05/19/18 14:06 Medications: Current Medications Acetaminophen (Tylenol) 1,000 mg PO Q4H PRN PRN Reason: MINORPAIN Apixaban (Eliquis) 5 mg PO BID [facility] Artificial Tears (Tears Naturale) 2 drop EA EYE PRN PRN PRN Reason: Dry Eyes Bisacodyl (Dulcolax) [address] DAILYPRN PRN PRN Reason: Constipation Cyanocobalamin (Vitamin B-12) 1,000 mcg PO DAILY [facility] Last Admin: 05/29/18 08:01 Dose: 1,000 mcg Dextrose/Water (Dextrose 50%) 25 gm SLOW IVP PRN PRN PRN Reason: Hypoglycemia Docusate Sodium (Colace) 100 mg PO BID [facility] Last Admin: 05/29/18 20:37 Dose: 100 mg Dronedarone (Multaq) 400 mg PO BID [facility] Last Admin: 05/29/18 20:37 Dose: 400 mg Folic Acid (Folvite) 1 mg PO DAILY [facility] Last Admin: 05/29/18 08:01 Dose: 1 mg Glucagon (Glucagon) 1 mg IM PRN PRN PRN Reason: Hypoglycemia Guaifenesin (Robitussin Sf) 200 mg PO Q4H PRN PRN Reason: Cough Last Admin: 05/26/18 13:42 Dose: 200 mg Hydralazine HCl (Apresoline) 10 mg SLOW IVP Q4H PRN PRN Reason: SBP > 180 and HR < 70 Dextrose/Water (D5w) 1,000 mls @ 0 mls/hr IV .Q0M PRN PRN Reason: Hypoglycemia Sodium Chloride (Normal Saline 0.9%) 1,000 mls @ 50 mls/hr IV .Q20H [facility] Last Admin: 05/29/18 05:58 Dose: 1,000 mls Insulin Human Lispro (Humalog) 0 units SC .MODERATE SLIDING SC PRN PRN Reason: Moderate Correctional Scale Last Admin: 05/27/18 17:46 Dose: 4 unit Insulin Human Lispro (Humalog) 0 units SC .BEDTIME SLIDING SC PRN PRN Reason: Bedtime Correctional Scale Last Admin: 05/29/18 20:45 Dose: 2 units Labetalol HCl (Normodyne) 20 mg SLOW IVP Q4H PRN PRN Reason: SBP > 180 and HR >/= 70 Lorazepam (Ativan) 1 mg IM Q6H PRN PRN Reason: .AGITATION DURING DAY Last Admin: 05/29/18 18:55 Dose: 1 mg Mineral Oil/White Petrolatum (Eucerin Cream) 0 gm TOP BIDPRN PRN PRN Reason: Dry Skin Multivitamins (Theragran) 1 tab PO DAILY [facility] Last Admin: 05/29/18 08:01 Dose: 1 tab Prednisone (Prednisone) 60 mg PO QAM [facility] Last Admin: 05/29/18 08:01 Dose: 60 mg Pyridoxine HCl (Vitamin B 6) 50 mg PO DAILY [facility] Last Admin: 05/29/18 08:01 Dose: 50 mg Quetiapine Fumarate (Seroquel) 100 mg PO HS [facility] Last Admin: 05/29/18 20:37 Dose: 100 mg Rosuvastatin Calcium (Crestor) 40 mg PO HS [facility] Last Admin: 05/22/18 21:18 Dose: 40 mg Sodium Chloride ([place] Nasal [place] 0.65%) 0 ml EA NARE QIDPRN PRN PRN Reason: Nasal Congestion Sodium Chloride (Flush - Normal Saline) 10 ml IVF Q12HR [facility] Last Admin: 05/29/18 20:38 Dose: 10 ml Sodium Chloride (Flush - Normal Saline) 10 ml IVF PRN PRN PRN Reason: Saline Flush Sterile Water (Water For Injection) 10 ml FS Q12H PRN PRN Reason: TO RECONSTITUTE ZIPRASIDONE Last Admin: 05/26/18 12:36 Dose: 10 ml Temazepam (Restoril) 15 mg PO HSPRN PRN PRN Reason: Insomnia Last Admin: 05/29/18 20:38 Dose: 15 mg Thiamine HCl (Thiamine) 100 mg PO DAILY [facility] Last Admin: 05/29/18 08:01 Dose: 100 mg Ziprasidone (Geodon) 20 mg IM Q12H PRN PRN Reason: Agitation Last Admin: 05/29/18 11:32 Dose: 20 mg
[2018-05-30] MEDS ORDERED: Acetaminophen 650 MG Suppository PR PRN (01:09)
[2018-05-30] MEDS: Sodium Chloride 0.9% 1,000 ML IV SCH ×4 (01:44→23:04)
[2018-05-30] MEDS ORDERED: Sodium Chloride 0.9% 1,000 ML IV SCH ×2 (03:45→04:45)
[2018-05-30 04:06] LABS: #Eosinphils 0.1 thou/uL (0.0-0.7); #Lymphocytes 0.2 thou/uL (1.20-3.40); #Monocytes 0.8 thou/uL (0.11-0.59); #Neutrophils 9.3 thou/uL (1.40-6.50); %Eosinophils 0.7 % (0.0-10.0); %Lymphocytes 2.1 % (21.0-51.0); %Monocytes 7.7 % (0.0-10.0); %Neutrophils 89.5 % (42.0-75.0); Hemoglobin 10.8 g/dL (14.0-18.0); Mean Corpuscular Hemoglobin 28.2 pg (27.0-31.0); Mean Corpuscular Volume 85.5 fL (78.0-98.0); Mean Platelet Volume 9.2 fL (7.4-10.4); Platelet Count 59 thou/uL (130-400); RBC Distribution Width 17.1 % (11.5-14.5); Red Blood Cell (RBC) Count 3.83 mill/uL (4.70-6.10); White Blood Cell (WBC) Count 10.4 thou/uL (4.8-10.8)
[2018-05-30 04:22] LABS: Lactic Acid 0.9 mmol/L (0.5-2.2)
[2018-05-30 04:31] LABS: Anion Gap 10 mmol/L (10-20); BUN (Urea Nitrogen) 26 mg/dL (8.4-25.7); Calc. Creatinine Clearance 63 mL/min (70-130); Calcium 7.9 mg/dL (7.8-10.44); Carbon Dioxide 22 mmol/L (23-31); Chloride 107 mmol/L (98-107); Estimated GFR-MDRD Greater than 90; Glucose 112 mg/dL (83-110); Potassium 4.2 mmol/L (3.5-5.1); Sodium 135 mmol/L (136-145)
[2018-05-30] MEDS: Piperacillin/Tazobactam 3.375 GM in Sodium Chloride 0.9% 100 ML IVPB SCH ×2 (05:25→11:01)
[2018-05-30] MEDS ORDERED: Vancomycin HCl 1 GM in Premix Bag 1 BAG IVPB SCH (06:00)
--- NOTE | 2018-05-30 06:06 | PDOC.EVN ---
Event Note - Event Note Event Note: pt went into shock, work up being done, 30 ml/kg given SBP~80 will transfer to icu , consult critical care for assistance with our patient, start vasopressors , broad spectrum antibiotics, work up to be followed.
[2018-05-30] MEDS ORDERED: Norepinephrine 8 MG/0.9% NS 250 ML IVPB SCH (06:15)
[2018-05-30 07:55] LABS: Bilirubin Small (Negative); Blood, Urine Large (Negative); Clarity CLOUDY (Clear); Glucose, Urine (Dipstick) Negative (Negative); Leukocyte Trace (Negative); Nitrite Negative (Negative); Protein, Urine (Dipstick) Trace mg/dL (Neg-Trace); Specific Gravity, Urine 1.024 (1.002-1.036); pH, Urine 6.5 (5.0-9.0)
[2018-05-30 07:58] LABS: Bacteria/HPF None Seen HPF (None Seen); Hyaline Casts/LPF 0-3 HYALINE CAST LPF (0-3 Hyaline); Pathc Cast-AUWi Flag 0.58 (0-2.49); RBC/HPF GREATER THAN 50-TNTC HPF (0-3); Squamous Epithelial 0-3 HPF (0-3); WBC/HPF 0-3 HPF (0-3)
[2018-05-30] MEDS ORDERED: Hydrocortisone Sod Succ/PF 100 mg/2 ml Vial IVP SCH (08:00)
[2018-05-30 08:21] LABS: Renal Epithelial 0-3 HPF (0-3); Transitional Epithelial 0-3 HPF (0-3)
--- NOTE | 2018-05-30 08:26 | RAD ---
SINGLE VIEW OF THE CHEST: Comparison: None. History: Infection with fever. FINDINGS: Single view of the chest shows an enlarged cardiomediastinal silhouette. The patient is status post a ortic valve repair. Opacity extending into the right lower thorax may represent a hiatal hernia. IMPRESSION: Opacity in the adjacent to the right heart border could represent a right middle lobe mass, collapse, or a mediastinal mass/hiatal hernia. CT of the chest with contrast is recommended for further evalua tion. Code T POS: CARRI
[2018-05-30] MEDS ORDERED: Apixaban 5 MG TAB PO SCH (09:00)
[2018-05-30] MEDS: Dronedarone HCl 400 MG TAB PO SCH ×2 (09:02→21:19)
[2018-05-30] MEDS: Multivit, Therapeutic 1 TAB PO SCH (09:02)
[2018-05-30] MEDS: Docusate 100 MG CAP PO SCH ×2 (09:03→21:19)
[2018-05-30] MEDS: Folic Acid 1 MG TAB PO SCH (09:03)
[2018-05-30] MEDS: Cyanocobalamin (Vitamin B-12) 1,000 MCG TAB PO SCH (09:08)
[2018-05-30] MEDS: pyridOXINE 50 MG (B6) TAB PO SCH (11:02)
[2018-05-30] MEDS ORDERED: Haloperidol Lactate 5 MG/ML VIAL IM PRN (12:19)
[2018-05-30 12:41] LABS: Mean Corpuscular HGB CONC 32.1 g/dL (32.0-36.0); Mean Corpuscular Hemoglobin 27.9 pg (27.0-31.0); Mean Corpuscular Volume 86.8 fL (78.0-98.0); Mean Platelet Volume 8.9 fL (7.4-10.4); Platelet Count 75 thou/uL (130-400); RBC Distribution Width 17.7 % (11.5-14.5)
--- NOTE | 2018-05-30 12:47 | RAD ---
MRI BRAIN WITH AND WITHOUT CONTRAST: 05/11/2018 HISTORY: Interpretation of outside study from [facility]. An 88-year-old male with TIA. TECHNIQUE: Multiple sequences obtained in axial, sagittal, and coronal planes; pre and post IV injection of gado linium-based contrast agent: Gadavist 7.5 mL FINDINGS: The ventricles are normal in size and configuration. There is no restricted diffusion, abnormal intr aaxial enhancement, mass, midline shift or any other mass effect, recent intraaxial hemorrhage, or ex traaxial fluid collection. There are T2-hyperintensities in the cerebral white matter consistent wit h chronic ischemic white matter changes due to microvascular atherosclerosis. Age-appropriate brain parenchymal volume loss. IMPRESSION: 1. Mild-moderate chronic ischemic white matter changes. 2. Otherwise negative. jnr POS: CARRI
[2018-05-30 12:48] LABS: Band 6 % (5-11); Bite Cells SLIGHT = 2-5 cells (100X) (0-1/hpf); Eosinophils 2 % (0-10); Lymphocytes 14 % (21-51); MDiff Complete? YES; Monocytes 2 % (0-10); Neutrophil 76 % (42-75); PLT Morphology Comment Appears Decreased
--- NOTE | 2018-05-30 17:07 | PDOC.PN ---
- Subjective Encounter Start Date: 05/30/18 Encounter Start Time: 08:00 Patient seen and examined for Sepsis/Encephalopathy. No new complaints. Overnight events noted - Objective Resuscitation Status - Order Detail: 05/22/18 12:05 Resuscitation Status Routine Resuscitation Status: FULL: Full Resuscitation Discussed with: Per previous order MAR Reviewed: Yes Vital Signs & Weight: Vital Signs (12 hours) Temp BP Pulse Ox 05/30/18 12:00 97.8 F 05/30/18 08:00 100 05/30/18 07:00 97.5 F L 05/30/18 05:50 80/42 L Weight Weight 149 lb Most Recent Monitor Data Heart Rate from ECG 63 NIBP 107/55 NIBP BP-Mean 72 Respiration from ECG 13 SpO2 100 I&O: 05/29/18 05/30/18 05/31/18 06:59 06:59 06:59 Intake Total 376 877 6580 Output Total 3 Balance 958 785 7270 Result Diagrams: 05/30/18 12:23 05/30/18 03:24 Additional Labs: Accuchecks 05/30/18 05/30/18 05/29/18 11:04 05:59 20:12 POC Glucose 125 H 117 H 209 H Phys Exam - Physical Examination Constitutional: NAD Respiratory: no wheezing Bibasilar rales with scat rhonchi Cardiovascular: RRR, no rub Gastrointestinal: soft, non-tender, positive bowel sounds Musculoskeletal: no edema Neurological: moves all 4 limbs Dx/Plan - Plan plan discussed w/ family, PT/OT, DVT proph w/SCDs 1. Toxic Metabolic Encephalopathy 2. Sepsis with acute organ dysfunction due to Pneumonia ?Aspiration 3. Par Afib - on Anticoag 4. HTN 5. Thrombocytopenia - prob due to sepsis. 6. h/o CVA 7. 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 DM2 / CKD 2 /s/p TAVR / Recent hospitalization at [facility] for Encephalopathy PLAN: Thyroid biopsy results pend Will hold Eliquis Cont Vancomycin/Zosyn Cont Seroquel On Stress dose Steroids AM labs Repeat CBC later today Review of Systems - Review of Systems Other: Cannot obtain due to current mentation - Medications/Allergies Allergies/Adverse Reactions: Allergies Allergy/AdvReac Type Severity Reaction Status Date / Time No Known Allergies Allergy Verified 05/19/18 14:06 Medications: Current Medications Acetaminophen (Tylenol) 1,000 mg PO Q4H PRN PRN Reason: MINORPAIN Acetaminophen (Tylenol) 650 mg [place] Q4H PRN PRN Reason: Fever > 101 Last Admin: 05/30/18 01:45 Dose: 650 mg Artificial Tears (Tears Naturale) 2 drop EA EYE PRN PRN PRN Reason: Dry Eyes Bisacodyl (Dulcolax) 10 mg [place] DAILYPRN PRN PRN Reason: Constipation Cyanocobalamin (Vitamin B-12) 1,000 mcg PO DAILY [facility] Last Admin: 05/30/18 09:08 Dose: 1,000 mcg Dextrose/Water (Dextrose 50%) 25 gm SLOW IVP PRN PRN PRN Reason: Hypoglycemia Docusate Sodium (Colace) 100 mg PO BID [facility] Last Admin: 05/30/18 09:03 Dose: 100 mg Dronedarone (Multaq) 400 mg PO BID [facility] Last Admin: 05/30/18 09:02 Dose: 400 mg Folic Acid (Folvite) 1 mg PO DAILY [facility] Last Admin: 05/30/18 09:03 Dose: 1 mg Glucagon (Glucagon) 1 mg IM PRN PRN PRN Reason: Hypoglycemia Guaifenesin (Robitussin Sf) 200 mg PO Q4H PRN PRN Reason: Cough Last Admin: 05/26/18 13:42 Dose: 200 mg Haloperidol Lactate (Haldol) 5 mg IM Q2H PRN PRN Reason: Agitation Hydralazine HCl (Apresoline) 10 mg SLOW IVP Q4H PRN PRN Reason: SBP > 180 and HR < 70 Dextrose/Water (D5w) 1,000 mls @ 0 mls/hr IV .Q0M PRN PRN Reason: Hypoglycemia Sodium Chloride (Normal Saline 0.9%) 1,000 mls @ 60 mls/hr IV .[id number] [facility] Last Admin: 05/30/18 13:00 Dose: 1,000 mls Insulin Human Lispro (Humalog) 0 units SC .MODERATE SLIDING SC PRN PRN Reason: Moderate Correctional Scale Last Admin: 05/27/18 17:46 Dose: 4 unit Insulin Human Lispro (Humalog) 0 units SC .BEDTIME SLIDING SC PRN PRN Reason: Bedtime Correctional Scale Last Admin: 05/29/18 20:45 Dose: 2 units Labetalol HCl (Normodyne) 20 mg SLOW IVP Q4H PRN PRN Reason: SBP > 180 and HR >/= 70 Mineral Oil/White Petrolatum (Eucerin Cream) 0 gm TOP BIDPRN PRN PRN Reason: Dry Skin Pyridoxine HCl (Vitamin B 6) 50 mg PO DAILY [facility] Last Admin: 05/30/18 11:02 Dose: Not Given Quetiapine Fumarate (Seroquel) 100 mg PO [facility] Last Admin: 05/29/18 20:37 Dose: 100 mg Rosuvastatin Calcium (Crestor) 40 mg PO [facility] Last Admin: 05/22/18 21:18 Dose: 40 mg Sodium Chloride ([place] Nasal [place] 0.65%) 0 ml EA NARE QIDPRN PRN PRN Reason: Nasal Congestion Sodium Chloride (Flush - Normal Saline) 10 ml IVF Q12HR [facility] Last Admin: 05/30/18 09:04 Dose: 10 ml Sodium Chloride (Flush - Normal Saline) 10 ml IVF PRN PRN PRN Reason: Saline Flush Sterile Water (Water For Injection) 10 ml FS Q12H PRN PRN Reason: TO RECONSTITUTE ZIPRASIDONE Last Admin: 05/26/18 12:36 Dose: 10 ml Thiamine HCl (Thiamine) 100 mg PO DAILY [facility] Last Admin: 05/30/18 09:03 Dose: 100 mg
--- NOTE | 2018-05-31 00:07 | CON ---
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 He has worked at [employer] for many years. I met with the daughter three different times today and she actually provides fairly excellent history about his functional status. Just over a month ago, he was absolutely normal. He managed his day-to-day affairs, his schedules, paid his bills, and had no issues of cognition. The daughter first became aware of something changing when he was in a grocery store checkout line and he started having a fairly heated discussion with a woman about ways to save money. This is someone that he did not know and then started a casual conversation with. 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 He continued to have progressive decline with waxing and waning mental status and physical behaviors. He was eventually hospitalized at [facility] and I believe he was in the hospital there for about 10 days. He subsequently was transferred to the [place]. He has had a transcutaneous aortic valve replacement and has a history of TIAs in the distant past, but recently he has been doing well. He apparently had a fairly extensive hospitalization workup including an MRI without contrast, an MRI with contrast, a lumbar puncture, head CT, carotid studies, thyroid ultrasound for a nodule, CT of his chest, abdomen and pelvis, multiple serological tests, ruling out typical and atypical infectious things, a lumbar puncture, etc. I do not have access to the [facility] records, but I have contacted Dr. Hoffman, who actually can access their healthcare system, and he has been consulted, and we will plan to review the results of the serological studies that were sent. He was eventually transferred to the halfway, became combative and was transferred back here, and is admitted to the critical care unit. He has been given the diagnosis of Benny encephalopathy. His mental status appears to be waxing and waning since he has been here. Today, he did not know where he was, but he was very conversant and very pleasant with his daughter and with me. He has had no history of seizures witnessed during these admissions. His daughter tells me he had several EEGs done at [facility], that did not show seizures. PAST MEDICAL HISTORY: Remarkable for diabetes. He has a reported history of a CVA, but there was no evidence of a CVA on his MRI done in [facility]. I have the radiologist to review that here. He just had age-appropriate atrophy. There is a thyroid mass found on the ultrasound. He has a history of atrial fibrillation with anticoagulation and has transcutaneous aortic valve replacement. FAMILY HISTORY: Negative for lung disease in early age. SOCIAL HISTORY: He is a nonsmoker and nondrinker. ALLERGIES: HE HAS NO DRUG ALLERGIES. MEDICATIONS: Prior to admission, he was on Ativan, Crestor, metformin, thiamine , Haldol, Eliquis, Multaq, and calcium. It is interesting to note that his daughter says that simply 3 mg of Haldol when he was in the hospital allowed him to hold still while he was getting his MRI. REVIEW OF SYSTEMS: 10 point review of systems completed, obviously not obtainable. PHYSICAL EXAMINATION: GENERAL: He is very pleasant, cooperative. He did not know where he was. VITAL SIGNS: Blood pressure 100/58, heart rate 68, respiratory rate 17, oximetry is in the high 90s. HEENT: Pupils are reactive. Sclerae are anicteric. Extraocular movements are full. NECK: Supple. LUNGS: Clear. HEART: Regular rhythm. S1 and S2 are normal. ABDOMEN: Soft and nontender. EXTREMITIES: Without clubbing, cyanosis, or edema. LABORATORY DATA: White count 11.0, hemoglobin 12, and platelets 75. Sodium 135 , potassium 4.2, chloride 107, bicarb 22, BUN 26, creatinine 0.8, and glucose 112. Urinalysis was remarkable for red cells, unclear whether or not this is done with a [facility]. His thyroglobulin antibody was elevated. He had a thyroid biopsy done. I talked to the pathologist today. Biopsy was negative for malignancy, which would be my first diagnosis. It was also negative for lymphocytic infiltrate, that would be suggestive of Benny thyroiditis. IMPRESSION: Encephalopathy of unclear etiology. Given his relatively acute decompensation and slow improvement, I would wonder about a viral encephalitis. A perineoplasty process is also in the differential, but seems less likely. He does not have any structural brain abnormalities on MRI. I would normally be more worried about white matter disease and something triggering an acute decompensation of compensated dementia, but his daughter's history is very concrete and solid in that he has not had any cognitive problems until the onset of these events. It is interesting to note that he has a history of a stroke, but has no MRI findings of a past thrombotic event. He has a history of TIAs. I am not sure what these were. I supposed these could have been focal motor seizures, but I doubt it. One of the episodes his daughter describes she was with him, his arm up in the air and not well with cognition. In any event, we will continue to try to sort through this. I cannot see really recommending something like a brain biopsy in this setting, but we will continue to monitor him in the critical care unit. I would get rid of the steroids that were prescribed for Benny's. Also, we would avoid the benzodiazepines for now and see if we can control him with Seroquel. If that is not working, then control him with routine administration of Haldol to see if he gradually improves. A 70-minute consult, with greater than 50% of the time was spent on unit in coordinating care. Job ID: [id number] MTDD
[2018-05-31 04:43] LABS: ALT (SGPT) 19 U/L (8-55); AST (SGOT) 39 U/L (5-34); Albumin 2.5 g/dL (3.4-4.8); Alkaline Phosphatase 42 U/L (40-150); Anion Gap 12 mmol/L (10-20); BUN (Urea Nitrogen) 24 mg/dL (8.4-25.7); Bilirubin, Total 0.8 mg/dL (0.2-1.2); Calc. Creatinine Clearance 68 mL/min (70-130); Calcium 8.2 mg/dL (7.8-10.44); Carbon Dioxide 23 mmol/L (23-31); Chloride 109 mmol/L (98-107); Estimated GFR-MDRD Greater than 90; Globulin 2.3 g/dL (2.4-3.5); Glucose 100 mg/dL (83-110); Magnesium 1.7 mg/dL (1.6-2.6); Potassium 3.7 mmol/L (3.5-5.1); Protein, Total 4.8 g/dL (5.8-8.1); Sodium 140 mmol/L (136-145)
[2018-05-31 05:00] LABS: Band 2 % (5-11); Hemoglobin 11.9 g/dL (14.0-18.0); Lymphocytes 11 % (21-51); MDiff Complete? YES; Mean Corpuscular HGB CONC 33.2 g/dL (32.0-36.0); Mean Corpuscular Hemoglobin 29.3 pg (27.0-31.0); Mean Corpuscular Volume 88.3 fL (78.0-98.0); Mean Platelet Volume 9.5 fL (7.4-10.4); Monocytes 9 % (0-10); Neutrophil 78 % (42-75); PLT Morphology Comment Appears Decreased; Platelet Count 87 thou/uL (130-400); RBC Distribution Width 17.6 % (11.5-14.5); Red Blood Cell (RBC) Count 4.05 mill/uL (4.70-6.10); White Blood Cell (WBC) Count 8.9 thou/uL (4.8-10.8)
[2018-05-31] MEDS ORDERED: Haloperidol Lactate 5 MG/ML VIAL SLOW IVP SCH (08:00)
[2018-05-31] MEDS ORDERED: Haloperidol Lactate 5 MG/ML VIAL ONE (09:05)
[2018-05-31] MEDS: Dronedarone HCl 400 MG TAB PO SCH ×2 (09:20→21:10)
[2018-05-31] MEDS: pyridOXINE 50 MG (B6) TAB PO SCH (09:20)
[2018-05-31] MEDS: Docusate 100 MG CAP PO SCH ×2 (09:20→21:10)
[2018-05-31] MEDS: Cyanocobalamin (Vitamin B-12) 1,000 MCG TAB PO SCH (09:20)
[2018-05-31] MEDS: Folic Acid 1 MG TAB PO SCH (09:20)
--- NOTE | 2018-05-31 10:59 | CON ---
DATE OF CONSULTATION: 05/30/2018 REASON FOR CONSULTATION: Possible encephalitis. HISTORY OF PRESENT ILLNESS: An 88-year-old patient with a history of aortic valve stenosis, status post percutaneous aortic valve replacement in [place], as well as type 2 diabetes who was admitted in October 2017 to [facility] with difficulty in finding words and balance problems as well as decreased ability to interact with family members. The patient had an MRI and MRA of the brain. The MRI showed, in the specific description of the radiologist at [facility], a tiny left posterior temporoparietal junction subcortical infarct. The carotid ultrasound showed no significant stenosis in the extracranial arteries. There was a small irregular plaque proximally seen on the left side. He was given aspirin and Plavix for presumed TIA. He improved and was discharged. Subsequently, family noticed that in April, he had some movements that were abnormal. This was initially identified when the patient was in a bank and he also had speech issues and became irritated with the banking services clerk apparently and he was then evaluated by a Neurology nurse practitioner and went to the emergency room in [facility] on May 06. He has had this again the speech disorder with inability to complete sentences, repeating himself, difficulty with finding words. At [facility] , his exam otherwise was not remarkable except for him being agitated and having the neurological findings noted above with particularly speech impairments. The patient had repeat MRI of the brain, which demonstrated no evidence of acute infarction and evidence of scattered areas of increased T2 and FLAIR signal throughout the periventricular white matter. Because of the unusual findings, CSF evaluation was completed. There was some mild elevation of protein and the abrupt range of assays were submitted. All the viral assays, and bacterial assays were negative and the meningitis/encephalitis panel. The patient had samples submitted for paraneoplastic encephalitis to [facility] and those have not yet resulted. The patient was admitted to [facility] after persistence of the neurological findings and the lack of an explanation for the patient's disorder. He was agitated and labeled restless, and combative. The remainder of the examination was not particularly remarkable. He is moving all extremities well. Speech was garbled and rambling, extremely agitated and was oriented x0. Initial white cell count 7.1, hemoglobin 12.4, platelets 166,000. Sodium 133, carbon dioxide 22, creatinine 0.79, calcium 8.6 , AST 33. Initial impression was acute encephalopathy, type 2 diabetes, and atrial fibrillation. The patient had consultation with Neurology, Dr. Barrios. His impression was acute encephalopathy of uncertain etiology and Dr. Barrios ordered various assays. 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 The patient did have a neck CT completed, which demonstrated a large thyroid mass. The mass was biopsied and the pathology has resulted as benign thyroid follicular cells, inadequate number of follicles and note is made that the fact that this could not be delivery representative since the mass was large. The patient was started on corticosteroids, and according to the daughters, has displayed significant improvement particularly over the past 24 to 48 hours. He is now oriented. He understands and establishes eye contact. Follows commands, is much more calm and interactive. His speech is still garbled and has difficulty in finding words, but he is able to understand very well. Currently, Mr. Poole is awake. He is somewhat inappropriate at times, particularly with his habit of touching and not measuring his movements, he is oriented, knows where he is, and recognizes family members very well. He will follow commands very long as well. He denies any headaches, no chest pain, no shortness of breath, no abdominal pain, no voiding difficulty, no diarrhea, and no skin disorder. PAST MEDICAL HISTORY: Type 2 diabetes, TIAs, prior CVA, and an extensive evaluation at [facility], thyroid mass, atrial fibrillation on chronic anticoagulation , TAVR following a diagnosis of aortic stenosis. 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 Never a smoker. FAMILY HISTORY: Noncontributory. CURRENT MEDICATIONS: He is on: 1. Tylenol. 2. Dulcolax. 3. Dextrose. 4. Colace. 5. Multaq. 6. Folvite. 7. Glucagon. 8. Haldol. 9. Apresoline. 10. Insulin. 11. Normodyne. 12. Crestor. 13. Seroquel. 14. Thiamine. ALLERGIES: NONE. PHYSICAL EXAMINATION: VITAL SIGNS: T max 92.7, it is now 96.8; blood pressure is 130/69; pulse 76; respirations 17; and O2 sat 100% on room air. SKIN: Normal. Peripheral IV access. : The patient is urinating spontaneously in the urinal. No lymphadenopathy. HEENT: Ocular movements conjugate. Sclerae are white. Pupils are equal and reactive. Oral cavity is moist, moves different place. Tongue movements are normal. NECK: Supple. No jugular venous distention. LUNGS: Symmetric. Clear breath sounds. HEART: S1 and S2, regular rate. ABDOMEN: Soft, not distended or tender. No ascites. No bladder distention. EXTREMITIES: No joint inflammatory activity. Moves extremities equally. NEUROLOGIC: He is awake. He is displays paraphasic errors, word finding difficulty and perseverance. He got his daughters' names right. He knew he was in the hospital, but had a difficult time in trying to find the [facility], with quite a bit of gaps in his vocabulary. LABORATORY DATA: White cell count is 3.9, now it is 11,000, hemoglobin 12, platelets 75,000, 76% neutrophils, 14% lymphocytes. Sodium 135, creatinine 0.8. Total bilirubin is 0.6, AST is 32, ALT 17, alkaline phosphatase 36, ammonia 23, albumin 2.6. Urinalysis with 0 to 3 wbc's, trace protein. Thyroglobulin antibody was elevated at 771, which is markedly elevated. IMAGING STUDIES: Include also a chest x-ray from today, which showed opacity adjacent to the right cardiac border. A CT with contrast was recommended and the other findings noted above. ASSESSMENT: 1. History of atrial fibrillation, aortic stenosis with recent transcatheter aortic valve replacement. 2. Recurring episodes of speech impairments which appear to be present since October , but more diagnosed as a transient ischemic attack. I believe that the October presentation is part of the syndrome that has extended and progressed to this date. 3. Large thyroid mass with benign pathology reportedly. 4. Markedly elevated thyroglobulin antibodies. 5. Abnormalities in behavior, movements, word finding, and mood disorder as well. DISCUSSION: The patient had an extensive workup at [facility] with all the infectious causes of encephalitis, negative in the panel that they have, which is quite extensive. There is a panel for paraneoplastic encephalitis which is submitted to [facility] and that is pending at this time. 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 This is the most likely scenario here. I would advise continuation of corticosteroids. I believe, immunoglobulin has been also recommended for treatment of this condition as well. The prognosis seems to be good with proper management. The autoantibodies responsible for this syndrome appear to have been identified and testing for those auto antibodies may be submitted as well. Other possibilities such as Creutzfeldt-Stalin, rapidly progressive frontotemporal dementia or Whipple's disease appeared to be less likely. Job ID: [id number] MTDD
--- NOTE | 2018-05-31 11:48 | PRG ---
DATE OF SERVICE: 05/31/2018 SUBJECTIVE: Still encephalopathic. He knew he was in the hospital, but he used the term medical. 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 He is talking to himself. OBJECTIVE: VITAL SIGNS: He is afebrile. Oximetry is 100% on room air and blood pressure 166/74. LUNGS: Clear. HEART: Regular rhythm. ABDOMEN: Soft. EXTREMITIES: Without edema. LABORATORY DATA: White count 8.9, hemoglobin 11.9, and platelets 87,000. Sodium 140, potassium 3.7, chloride 109, bicarb 22, BUN 24, and creatinine 0.74. IMPRESSION AND PLAN: 1. Encephalopathy, question encephalitis. 2. Thrombocytopenia. It is stable. He is not on any deep venous thrombosis prophylaxis at this time. Since Seroquel is not helping him at night, we will switch him to around the clock Haldol, and see how he does with that. We will give him a bigger dose at bedtime. I will continue to follow. Job ID: [id number]
[2018-05-31] MEDS: Haloperidol Lactate 5 MG/ML VIAL IM SCH ×4 (13:02→21:10)
[2018-05-31] MEDS: D5 1/2 NS w/20 mEq KCL 1,000 ML IV SCH (13:39)
[2018-05-31] MEDS ORDERED: Haloperidol Lactate 5 MG/ML VIAL IM SCH (21:00)
[2018-05-31] MEDS: Lorazepam 2 MG/ML VIAL SLOW IVP SCH (21:10)
--- NOTE | 2018-05-31 22:25 | PDOC.PN ---
- Subjective Encounter Start Date: 05/31/18 Encounter Start Time: 08:00 Patient seen and examined. Intermittent confusion per RN. No new complaints. No overnight events - Objective Resuscitation Status - Order Detail: 05/22/18 12:05 Resuscitation Status Routine Resuscitation Status: FULL: Full Resuscitation Discussed with: Per previous order MAR Reviewed: Yes Vital Signs & Weight: Vital Signs (12 hours) Temp 05/31/18 19:46 98.4 F 05/31/18 16:00 98.3 F 05/31/18 12:00 97.9 F Weight Weight 149 lb Most Recent Monitor Data Heart Rate from ECG 96 NIBP 157/132 NIBP BP-Mean 140 Respiration from ECG 13 SpO2 100 I&O: 05/30/18 05/31/18 06/01/18 06:59 06:59 06:59 Intake Total 280 5254 1000 Output Total 3 1100 Balance 280 5251 -100 Result Diagrams: 06/01/18 05:20 06/01/18 05:20 Additional Labs: Accuchecks 05/31/18 05/31/18 05/31/18 16:24 11:26 06:01 POC Glucose 177 H 114 H 97 EKG Reviewed by me: Yes (Tele SR) Phys Exam - Physical Examination Constitutional: NAD Respiratory: no wheezing, no rhonchi rales at bases Cardiovascular: RRR, no rub Gastrointestinal: soft, non-tender, positive bowel sounds Musculoskeletal: no edema Neurological: moves all 4 limbs Dx/Plan - Plan DVT proph w/SCDs 1. Toxic Metabolic Encephalopathy 2. Sepsis with acute organ dysfunction due to Pneumonia ?Aspiration 3. Par Afib - on Anticoag 4. HTN 5. Thrombocytopenia - prob due to sepsis. 6. h/o CVA 7. 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 DM2 / CKD 2 /s/p TAVR / Recent hospitalization at [facility] for Encephalopathy PLAN: Eliquis on hold due to thrombocytopenia Atbx and Steroids dced Cont gentle IVF due to NPO status per [employer] AM labs Cont other meds as below Review of Systems - Review of Systems Other: Cannot obtain due to current mentation. - Medications/Allergies Allergies/Adverse Reactions: Allergies Allergy/AdvReac Type Severity Reaction Status Date / Time No Known Allergies Allergy Verified 05/19/18 14:06 Medications: Current Medications Acetaminophen (Tylenol) 1,000 mg PO Q4H PRN PRN Reason: MINORPAIN Acetaminophen (Tylenol) 650 mg [place] Q4H PRN PRN Reason: Fever > 101 Last Admin: 05/30/18 01:45 Dose: 650 mg Artificial Tears (Tears Naturale) 2 drop EA EYE PRN PRN PRN Reason: Dry Eyes Bisacodyl (Dulcolax) 10 mg W[place] DAILYPRN PRN PRN Reason: Constipation Cyanocobalamin (Vitamin B-12) 1,000 mcg PO DAILY [facility] Last Admin: 05/31/18 09:20 Dose: 1,000 mcg Dextrose/Water (Dextrose 50%) 25 gm SLOW IVP PRN PRN PRN Reason: Hypoglycemia Docusate Sodium (Colace) 100 mg PO BID [facility] Last Admin: 05/31/18 21:10 Dose: 100 mg Dronedarone (Multaq) 400 mg PO BID [facility] Last Admin: 05/31/18 21:10 Dose: 400 mg Folic Acid (Folvite) 1 mg PO DAILY [facility] Last Admin: 05/31/18 09:20 Dose: 1 mg Glucagon (Glucagon) 1 mg IM PRN PRN PRN Reason: Hypoglycemia Guaifenesin (Robitussin Sf) 200 mg PO Q4H PRN PRN Reason: Cough Last Admin: 05/26/18 13:42 Dose: 200 mg Haloperidol Lactate (Haldol) 5 mg IM Q2H PRN PRN Reason: Agitation Last Admin: 05/31/18 00:31 Dose: 5 mg Haloperidol Lactate (Haldol) 5 mg IM Q4HR [facility] Last Admin: 05/31/18 21:10 Dose: 5 mg Haloperidol Lactate (Haldol) 5 mg IM HS [facility] Last Admin: 05/31/18 21:10 Dose: 5 mg Hydralazine HCl (Apresoline) 10 mg SLOW IVP Q4H PRN PRN Reason: SBP > 180 and HR < 70 Dextrose/Water (D5w) 1,000 mls @ 0 mls/hr IV .Q0M PRN PRN Reason: Hypoglycemia Potassium Chloride/Dextrose/Sod Cl (D5 1/2 Ns W/20 Meq Kcl) 1,000 mls @ 50 mls/ hr IV .Q20H [facility] Last Admin: 05/31/18 13:39 Dose: 1,000 mls Insulin Human Lispro (Humalog) 0 units SC .MODERATE SLIDING SC PRN PRN Reason: Moderate Correctional Scale Last Admin: 05/27/18 17:46 Dose: 4 unit Insulin Human Lispro (Humalog) 0 units SC .BEDTIME SLIDING SC PRN PRN Reason: Bedtime Correctional Scale Last Admin: 05/29/18 20:45 Dose: 2 units Labetalol HCl (Normodyne) 20 mg SLOW IVP Q4H PRN PRN Reason: SBP > 180 and HR >/= 70 Lorazepam (Ativan) 0.5 mg SLOW IVP [facility] Last Admin: 05/31/18 21:10 Dose: 0.5 mg Mineral Oil/White Petrolatum (Eucerin Cream) 0 gm TOP BIDPRN PRN PRN Reason: Dry Skin Pyridoxine HCl (Vitamin B 6) 50 mg PO DAILY [facility] Last Admin: 05/31/18 09:20 Dose: 50 mg Rosuvastatin Calcium (Crestor) 40 mg PO [facility] Last Admin: 05/22/18 21:18 Dose: 40 mg Sodium Chloride ([place] Nasal [place] 0.65%) 0 ml EA NARE QIDPRN PRN PRN Reason: Nasal Congestion Sodium Chloride (Flush - Normal Saline) 10 ml IVF Q12HR [facility] Last Admin: 05/31/18 21:11 Dose: 10 ml Sodium Chloride (Flush - Normal Saline) 10 ml IVF PRN PRN PRN Reason: Saline Flush Thiamine HCl (Thiamine) 100 mg PO DAILY [facility] Last Admin: 05/31/18 09:20 Dose: 100 mg
[2018-06-01] MEDS: Haloperidol Lactate 5 MG/ML VIAL IM SCH ×7 (02:04→22:25)
[2018-06-01 05:40] LABS: #Lymphocytes 0.5 thou/uL (1.20-3.40); #Monocytes 0.6 thou/uL (0.11-0.59); #Neutrophils 5.4 thou/uL (1.40-6.50); %Eosinophils 0.6 % (0.0-10.0); %Lymphocytes 8.2 % (21.0-51.0); %Monocytes 8.7 % (0.0-10.0); %Neutrophils 82.5 % (42.0-75.0); Hemoglobin 11.8 g/dL (14.0-18.0); Mean Corpuscular HGB CONC 32.8 g/dL (32.0-36.0); Mean Corpuscular Hemoglobin 28.8 pg (27.0-31.0); Mean Corpuscular Volume 87.6 fL (78.0-98.0); Mean Platelet Volume 9.9 fL (7.4-10.4); Platelet Count 81 thou/uL (130-400); RBC Distribution Width 17.5 % (11.5-14.5); Red Blood Cell (RBC) Count 4.09 mill/uL (4.70-6.10); White Blood Cell (WBC) Count 6.6 thou/uL (4.8-10.8)
[2018-06-01 06:02] LABS: ALT (SGPT) 22 U/L (8-55); AST (SGOT) 40 U/L (5-34); Albumin 2.3 g/dL (3.4-4.8); Alkaline Phosphatase 40 U/L (40-150); Anion Gap 12 mmol/L (10-20); BUN (Urea Nitrogen) 19 mg/dL (8.4-25.7); Bilirubin, Total 0.9 mg/dL (0.2-1.2); Calc. Creatinine Clearance 78 mL/min (70-130); Carbon Dioxide 21 mmol/L (23-31); Chloride 110 mmol/L (98-107); Estimated GFR-MDRD Greater than 90; Globulin 2.3 g/dL (2.4-3.5); Glucose 129 mg/dL (83-110); Potassium 3.7 mmol/L (3.5-5.1); Protein, Total 4.6 g/dL (5.8-8.1); Sodium 139 mmol/L (136-145)
[2018-06-01] MEDS: pyridOXINE 50 MG (B6) TAB PO SCH (07:57)
[2018-06-01] MEDS: Docusate 100 MG CAP PO SCH ×2 (07:57→22:24)
[2018-06-01] MEDS: Cyanocobalamin (Vitamin B-12) 1,000 MCG TAB PO SCH (07:57)
[2018-06-01] MEDS: Folic Acid 1 MG TAB PO SCH (07:58)
[2018-06-01] MEDS: Dronedarone HCl 400 MG TAB PO SCH ×2 (07:58→22:25)
[2018-06-01] MEDS ORDERED: predniSONE 20 MG TAB PO SCH ×2 (09:15→10:30)
[2018-06-01] MEDS: D5 1/2 NS w/20 mEq KCL 1,000 ML IV SCH (09:18)
[2018-06-01] MEDS ORDERED: Apixaban 2.5 MG TAB PO SCH (10:00)
[2018-06-01] MEDS: HumaLOG 300 UNITS/3 ML VIAL SC PRN ×3 (11:11→22:21)
--- NOTE | 2018-06-01 13:37 | PRG ---
DATE OF SERVICE: 06/01/2018 SUBJECTIVE: Mr. Poole is sitting in the bedside chair. He is oriented to person and place. He has still fairly persistent speech and wants to make the same point over and over again, but overall he appears to be better. He actually slept last night after the Haldol and the Ativan. OBJECTIVE: VITAL SIGNS: He is afebrile. Blood pressure 133/77, respiratory rates in the teens. LUNGS: Clear. HEART: Regular rhythm. ABDOMEN: Soft and nontender. EXTREMITIES: No clubbing, cyanosis, or edema. LABORATORY AND RADIOLOGY FINDINGS: White count 6.6, hemoglobin 11.8, platelets 81,000. Sodium 139, potassium 3.7, chloride 110, bicarb 29, BUN 19, and creatinine 0.65. IMPRESSION AND PLAN: Encephalopathy. 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 I suppose he could have encephalitis with a negative workup but this becomes less likely. He could have a viral illness that triggered this acute decompensation and being in the hospital has aggravated it. I still do not feel he has Benny thyroiditis. He has biopsy that is not consistent with Benny's. He also has only a circulating thyroglobulin antibody, which can also be seen with Graves disease. Either one of these illnesses can leave you hyperthyroid, hypothyroid, or euthyroid. He appears to be euthyroid at this time. Benny' s has a diffuse thyroid enlargement, Graves can be asymmetric. 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 I would try to rapidly get him off steroids. I am told by the staff that one of the daughters wanted him back on steroids, but I certainly do not think we should be restarting steroids without good reason in an 88-year-old gentleman with confusion. This will aggravate his insomnia and also very quite possibly make him more confused. At some point in time, he can be transferred out of the critical care unit to either step-down bed or a medical bed. I do not feel he is ready to go to rehab. I certainly do not feel he is ready to go home. I would continue with the [id number] Haldol with a bigger dose at bedtime. Since we started this, he is clinically then better. The Seroquel at 100 mg at bedtime did not work at all. It may be that the steroids he was getting prevented him from becoming somnolent with the Seroquel. Job ID: [id number] [facility] SYSTEM[facility]
--- NOTE | 2018-06-01 20:55 | PDOC.PN ---
- Subjective Encounter Start Date: 06/01/18 Encounter Start Time: 18:00 Patient seen and examined for AMS. Mentation improving. No new complaints. No overnight events - Objective Resuscitation Status - Order Detail: 05/22/18 12:05 Resuscitation Status Routine Resuscitation Status: FULL: Full Resuscitation Discussed with: Per previous order MAR Reviewed: Yes Vital Signs & Weight: Vital Signs (12 hours) Temp Pulse Pulse BP BP Pulse Ox 06/01/18 16:00 97.8 F 06/01/18 13:46 98 99 127/81 120/70 100 06/01/18 11:00 98 F 06/01/18 09:20 108 H 96 155/131 H 123/102 H Weight Weight 149 lb Most Recent Monitor Data Heart Rate from ECG 99 NIBP 125/82 NIBP BP-Mean 96 Respiration from ECG 16 SpO2 100 I&O: 05/31/18 06/01/18 06/02/18 06:59 06:59 06:59 Intake Total 5256 1050 715 Output Total 2000 Balance 5251 -951 -475 Result Diagrams: 06/02/18 06:35 06/02/18 06:35 Additional Labs: Accuchecks 06/01/18 06/01/18 06/01/18 17:34 11:06 00:13 POC Glucose 226 H 199 H 138 H EKG Reviewed by me: Yes (Tele SR) Phys Exam - Physical Examination Constitutional: NAD Respiratory: no wheezing, no rhonchi Cardiovascular: RRR, no rub Gastrointestinal: soft, non-tender, positive bowel sounds Musculoskeletal: no edema Neurological: moves all 4 limbs Dx/Plan - Plan DVT proph w/SCDs 1. Toxic Metabolic Encephalopathy 2. Sepsis with acute organ dysfunction due to Aspiration Pneumonitis - improving. Atbx dced. 3. Par Afib - on Anticoag 4. HTN 5. Thrombocytopenia - prob due to sepsis. 6. h/o CVA 7. 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 DM2 / CKD 2 /s/p TAVR / Recent hospitalization at [facility] for Encephalopathy PLAN: Resume Eliquis at low dose due to thrombocytopenia - Family understands the risk of anticoag Will resume Steroids per family request (Was on Prednisone [address] Barrios) Cont other meds as below DC IVF later today if tolerating PO AM labs Cont other meds as below Review of Systems - Review of Systems Respiratory: negative: Cough, Dry, Shortness of Breath, Hemoptysis, SOB with Excertion, Pleuritic Pain, Sputum, Wheezing Cardiovascular: negative: chest pain, palpitations, orthopnea, paroxysmal nocturnal dyspnea, edema, light headedness, other - Medications/Allergies Allergies/Adverse Reactions: Allergies Allergy/AdvReac Type Severity Reaction Status Date / Time No Known Allergies Allergy Verified 05/19/18 14:06 Medications: Current Medications Acetaminophen (Tylenol) 1,000 mg PO Q4H PRN PRN Reason: MINORPAIN Acetaminophen (Tylenol) 650 mg [place] Q4H PRN PRN Reason: Fever > 101 Last Admin: 05/30/18 01:45 Dose: 650 mg Apixaban (Eliquis) 2.5 mg PO BID [facility] Artificial Tears (Tears Naturale) 2 drop EA EYE PRN PRN PRN Reason: Dry Eyes Bisacodyl (Dulcolax) 10 mg [place] DAILYPRN PRN PRN Reason: Constipation Cyanocobalamin (Vitamin B-12) 1,000 mcg PO DAILY [facility] Last Admin: 06/01/18 07:57 Dose: 1,000 mcg Dextrose/Water (Dextrose 50%) 25 gm SLOW IVP PRN PRN PRN Reason: Hypoglycemia Docusate Sodium (Colace) 100 mg PO BID [facility] Last Admin: 06/01/18 07:57 Dose: 100 mg Dronedarone (Multaq) 400 mg PO BID [facility] Last Admin: 06/01/18 07:58 Dose: 400 mg Folic Acid (Folvite) 1 mg PO DAILY [facility] Last Admin: 06/01/18 07:58 Dose: 1 mg Glucagon (Glucagon) 1 mg IM PRN PRN PRN Reason: Hypoglycemia Guaifenesin (Robitussin Sf) 200 mg PO Q4H PRN PRN Reason: Cough Last Admin: 05/26/18 13:42 Dose: 200 mg Haloperidol Lactate (Haldol) 5 mg IM Q2H PRN PRN Reason: Agitation Last Admin: 05/31/18 00:31 Dose: 5 mg Haloperidol Lactate (Haldol) 5 mg IM Q4HR [facility] Last Admin: 06/01/18 17:32 Dose: 5 mg Haloperidol Lactate (Haldol) 5 mg IM HS [facility] Last Admin: 05/31/18 21:10 Dose: 5 mg Hydralazine HCl (Apresoline) 10 mg SLOW IVP Q4H PRN PRN Reason: SBP > 180 and HR < 70 Dextrose/Water (D5w) 1,000 mls @ 0 mls/hr IV .Q0M PRN PRN Reason: Hypoglycemia Insulin Human Lispro (Humalog) 0 units SC .MODERATE SLIDING SC PRN PRN Reason: Moderate Correctional Scale Last Admin: 06/01/18 17:33 Dose: 4 unit Insulin Human Lispro (Humalog) 0 units SC .BEDTIME SLIDING SC PRN PRN Reason: Bedtime Correctional Scale Last Admin: 05/29/18 20:45 Dose: 2 units Labetalol HCl (Normodyne) 20 mg SLOW IVP Q4H PRN PRN Reason: SBP > 180 and HR >/= 70 Lorazepam (Ativan) 0.5 mg SLOW IVP [facility] Last Admin: 05/31/18 21:10 Dose: 0.5 mg Mineral Oil/White Petrolatum (Eucerin Cream) 0 gm TOP BIDPRN PRN PRN Reason: Dry Skin Prednisone (Prednisone) 30 mg PO QA-[facility] Pyridoxine HCl (Vitamin B 6) 50 mg PO DAILY [facility] Last Admin: 06/01/18 07:57 Dose: 50 mg Rosuvastatin Calcium (Crestor) 40 mg PO [facility] Last Admin: 05/22/18 21:18 Dose: 40 mg Sodium Chloride ([place] Nasal [place] 0.65%) 0 ml EA NARE QIDPRN PRN PRN Reason: Nasal Congestion Sodium Chloride (Flush - Normal Saline) 10 ml IVF Q12HR [facility] Last Admin: 06/01/18 07:59 Dose: 10 ml Sodium Chloride (Flush - Normal Saline) 10 ml IVF PRN PRN PRN Reason: Saline Flush Thiamine HCl (Thiamine) 100 mg PO DAILY [facility] Last Admin: 06/01/18 07:57 Dose: 100 mg
[2018-06-01] MEDS: Apixaban 2.5 MG TAB PO SCH (22:24)
[2018-06-01] MEDS: Lorazepam 2 MG/ML VIAL SLOW IVP SCH (22:25)
[2018-06-02] MEDS: Haloperidol Lactate 5 MG/ML VIAL IM SCH ×4 (01:00→11:53)
[2018-06-02 07:10] LABS: Anion Gap 8 mmol/L (10-20); BUN (Urea Nitrogen) 20 mg/dL (8.4-25.7); Calc. Creatinine Clearance 78 mL/min (70-130); Calcium 7.9 mg/dL (7.8-10.44); Carbon Dioxide 26 mmol/L (23-31); Chloride 108 mmol/L (98-107); Estimated GFR-MDRD Greater than 90; Glucose 122 mg/dL (83-110); Potassium 3.6 mmol/L (3.5-5.1); Sodium 138 mmol/L (136-145)
[2018-06-02 07:27] LABS: #Eosinphils 0.1 thou/uL (0.0-0.7); #Lymphocytes 0.8 thou/uL (1.20-3.40); #Monocytes 0.5 thou/uL (0.11-0.59); #Neutrophils 5.4 thou/uL (1.40-6.50); %Basophils 0.2 % (0.0-1.0); %Eosinophils 0.9 % (0.0-10.0); %Lymphocytes 11.1 % (21.0-51.0); %Monocytes 6.9 % (0.0-10.0); %Neutrophils 80.9 % (42.0-75.0); Hemoglobin 10.5 g/dL (14.0-18.0); Mean Corpuscular HGB CONC 32.7 g/dL (32.0-36.0); Mean Corpuscular Hemoglobin 28.3 pg (27.0-31.0); Mean Corpuscular Volume 86.5 fL (78.0-98.0); Mean Platelet Volume 9.5 fL (7.4-10.4); Platelet Count 84 thou/uL (130-400); RBC Distribution Width 17.5 % (11.5-14.5); Red Blood Cell (RBC) Count 3.72 mill/uL (4.70-6.10); White Blood Cell (WBC) Count 6.7 thou/uL (4.8-10.8)
[2018-06-02 07:57] VITALS: BMI 23.8
[2018-06-02] MEDS: predniSONE 20 MG TAB PO SCH (10:02)
[2018-06-02] MEDS: Cyanocobalamin (Vitamin B-12) 1,000 MCG TAB PO SCH (10:02)
[2018-06-02] MEDS: Dronedarone HCl 400 MG TAB PO SCH ×2 (10:03→20:11)
[2018-06-02] MEDS: pyridOXINE 50 MG (B6) TAB PO SCH (10:03)
[2018-06-02] MEDS: Apixaban 2.5 MG TAB PO SCH ×2 (10:03→20:11)
[2018-06-02] MEDS: Folic Acid 1 MG TAB PO SCH (10:03)
[2018-06-02] MEDS: Docusate 100 MG CAP PO SCH ×2 (10:18→20:11)
[2018-06-02] MEDS: HumaLOG 300 UNITS/3 ML VIAL SC PRN ×2 (11:57→17:11)
[2018-06-02] MEDS ORDERED: Potassium Chloride 20 MEQ TAB PO SCH (12:30)
[2018-06-02] MEDS ORDERED: Haloperidol 5 MG TAB PO SCH (12:30)
[2018-06-02] MEDS: Furosemide 40 MG/4 ML VIAL SLOW IVP SCH ×2 (12:57→14:18)
--- NOTE | 2018-06-02 13:08 | PRG ---
DATE OF SERVICE: 06/02/2018 SERVICE: Pulmonary Medicine INTERVAL HISTORY: The patient is doing really well from respiratory standpoint. Denies any current chest pain, fevers, chills, nausea, vomiting, or diarrhea. There have been no significant overnight events. He remains a little bit confused. That being said, he is having another "clear day" according to the patient's son. PHYSICAL EXAMINATION: VITAL SIGNS: Afebrile, pulse 85, blood pressure 124/74, respirations 13, and saturation 99% on room air. GENERAL: The patient is awake and alert, in no apparent distress. LUNGS: Good air entry bibasilarly. There are some dependent crackles present. No rhonchi or wheezing appreciated. HEART: Normal rate, regular. ABDOMEN: Soft, nontender, and nondistended. Bowel sounds are positive. MUSCULOSKELETAL: No cyanosis or clubbing. There is 2+ pitting in the bilateral lower extremities. NEUROLOGIC: Grossly nonfocal. LABORATORY DATA: WBC 6.7, hemoglobin 10.5, and platelets 84,000 and roughly stable. Basic metabolic profile is essentially unremarkable. Potassium is 3.6. Urinalysis is positive for red blood cells. No white blood cells were present. Thyroglobulin antibody is significantly abnormal. ASSESSMENT: 1. Encephalopathy, unknown etiology. 2. Benny thyroiditis, possible. I will switch the Haldol over to p.o. In addition, I will replace a little dose of potassium today. We will give him a laboratory holiday in the morning. One dose of Lasix will be provided. Pulmonary Critical Care will continue to follow. He is going to remain in the ICU for an additional 24 hours as he has fairly high nursing requirements currently. Job ID: [id number]
[2018-06-02] MEDS: Haloperidol 5 MG TAB PO SCH (20:11)
[2018-06-02] MEDS: Lorazepam 2 MG/ML VIAL SLOW IVP SCH (22:33)
--- NOTE | 2018-06-02 23:36 | PDOC.PN ---
- Subjective Encounter Start Date: 06/02/18 Encounter Start Time: 07:30 Patient seen and examined for Encephalopathy. No new complaints. No overnight events - Objective Resuscitation Status - Order Detail: 05/22/18 12:05 Resuscitation Status Routine Resuscitation Status: FULL: Full Resuscitation Discussed with: Per previous order MAR Reviewed: Yes Vital Signs & Weight: Vital Signs (12 hours) Temp Pulse Ox 06/02/18 20:00 98 F 100 06/02/18 16:00 97.9 F 06/02/18 12:00 98.0 F Weight Admit Weight 149 lb Weight 152 lb 5.431 oz Most Recent Monitor Data Heart Rate from ECG 69 NIBP 140/72 NIBP BP-Mean 94 Respiration from ECG 23 SpO2 100 I&O: 06/01/18 06/02/18 06/03/18 06:59 06:59 06:59 Intake Total 1049 915 715 Output Total 2000 1340 1350 [facility] -951 -425 -635 Result Diagrams: 06/02/18 06:35 06/02/18 06:35 Additional Labs: Accuchecks 06/02/18 06/02/18 06/02/18 21:07 16:16 11:56 POC Glucose 159 H 206 H 225 H 06/02/18 06:38 POC Glucose 121 H EKG Reviewed by me: Yes (Tele SR) Phys Exam - Physical Examination Constitutional: NAD Respiratory: no wheezing, no rhonchi Cardiovascular: RRR, no rub Gastrointestinal: soft, non-tender, positive bowel sounds Musculoskeletal: no edema Neurological: moves all 4 limbs Dx/Plan - Plan DVT proph w/SCDs 1. Toxic Metabolic Encephalopathy - improving 2. Sepsis with acute organ dysfunction due to Aspiration Pneumonitis - improving. Atbx dced. 3. Par Afib - on Anticoag 4. HTN 5. Thrombocytopenia - prob due to sepsis. 6. h/o CVA 7. 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 DM2 / CKD 2 /s/p TAVR / Recent hospitalization at [facility] for Encephalopathy PLAN: Encephalopathy improving on current meds Cont other meds as below Cont supportive care Review of Systems - Review of Systems Respiratory: negative: Cough, Dry, Shortness of Breath, Hemoptysis, SOB with Excertion, Pleuritic Pain, Sputum, Wheezing Cardiovascular: negative: chest pain, palpitations, orthopnea, paroxysmal nocturnal dyspnea, edema, light headedness, other - Medications/Allergies Allergies/Adverse Reactions: Allergies Allergy/AdvReac Type Severity Reaction Status Date / Time No Known Allergies Allergy Verified 05/19/18 14:06 Medications: Current Medications Acetaminophen (Tylenol) 1,000 mg PO Q4H PRN PRN Reason: MINORPAIN Acetaminophen (Tylenol) 650 mg FL Q4H PRN PRN Reason: Fever > 101 Last Admin: 05/30/18 01:45 Dose: 650 mg Apixaban (Eliquis) 2.5 mg PO BID [facility] Last Admin: 06/02/18 20:11 Dose: 2.5 mg Artificial Tears (Tears Naturale) 2 drop EA EYE PRN PRN PRN Reason: Dry Eyes Bisacodyl (Dulcolax) 10 mg FL DAILYPRN PRN PRN Reason: Constipation Cyanocobalamin (Vitamin B-12) 1,000 mcg PO DAILY [facility] Last Admin: 06/02/18 10:02 Dose: 1,000 mcg Dextrose/Water (Dextrose 50%) 25 gm SLOW IVP PRN PRN PRN Reason: Hypoglycemia Docusate Sodium (Colace) 100 mg PO BID [facility] Last Admin: 06/02/18 20:11 Dose: 100 mg Dronedarone (Multaq) 400 mg PO BID [facility] Last Admin: 06/02/18 20:11 Dose: 400 mg Folic Acid (Folvite) 1 mg PO DAILY [facility] Last Admin: 06/02/18 10:03 Dose: 1 mg Glucagon (Glucagon) 1 mg IM PRN PRN PRN Reason: Hypoglycemia Guaifenesin (Robitussin Sf) 200 mg PO Q4H PRN PRN Reason: Cough Last Admin: 05/26/18 13:42 Dose: 200 mg Haloperidol (Haldol) 10 mg PO BID [facility] Last Admin: 06/02/18 20:11 Dose: 10 mg Haloperidol Lactate (Haldol) 5 mg IM Q2H PRN PRN Reason: Agitation Last Admin: 05/31/18 00:31 Dose: 5 mg Hydralazine HCl (Apresoline) 10 mg SLOW IVP Q4H PRN PRN Reason: SBP > 180 and HR < 70 Dextrose/Water (D5w) 1,000 mls @ 0 mls/hr IV .Q0M PRN PRN Reason: Hypoglycemia Insulin Human Lispro (Humalog) 0 units SC .MODERATE SLIDING SC PRN PRN Reason: Moderate Correctional Scale Last Admin: 06/02/18 17:11 Dose: 4 unit Insulin Human Lispro (Humalog) 0 units SC .BEDTIME SLIDING SC PRN PRN Reason: Bedtime Correctional Scale Last Admin: 06/01/18 22:21 Dose: 2 units Labetalol HCl (Normodyne) 20 mg SLOW IVP Q4H PRN PRN Reason: SBP > 180 and HR >/= 70 Lorazepam (Ativan) 0.5 mg SLOW IVP [facility] Last Admin: 06/02/18 22:33 Dose: 0.5 mg Mineral Oil/White Petrolatum (Eucerin Cream) 0 gm TOP BIDPRN PRN PRN Reason: Dry Skin Prednisone (Prednisone) 30 mg PO [facility] Last Admin: 06/02/18 10:02 Dose: 30 mg Pyridoxine HCl (Vitamin B 6) 50 mg PO DAILY [facility] Last Admin: 06/02/18 10:03 Dose: 50 mg Rosuvastatin Calcium (Crestor) 40 mg PO [facility] Last Admin: 05/22/18 21:18 Dose: 40 mg Sodium Chloride ([place] Nasal [place] 0.65%) 0 ml EA NARE QIDPRN PRN PRN Reason: Nasal Congestion Sodium Chloride (Flush - Normal Saline) 10 ml IVF Q12HR [facility] Last Admin: 06/02/18 20:11 Dose: 10 ml Sodium Chloride (Flush - Normal Saline) 10 ml IVF PRN PRN PRN Reason: Saline Flush Last Admin: 06/02/18 14:19 Dose: 10 ml Thiamine HCl (Thiamine) 100 mg PO DAILY [facility] Last Admin: 06/02/18 10:03 Dose: 100 mg
[2018-06-03] MEDS: predniSONE 20 MG TAB PO SCH (07:45)
[2018-06-03] MEDS: Haloperidol 5 MG TAB PO SCH ×2 (07:49→20:33)
[2018-06-03] MEDS: Dronedarone HCl 400 MG TAB PO SCH ×2 (07:50→20:34)
[2018-06-03] MEDS: Apixaban 2.5 MG TAB PO SCH ×2 (07:50→20:34)
[2018-06-03] MEDS: Cyanocobalamin (Vitamin B-12) 1,000 MCG TAB PO SCH (07:50)
[2018-06-03] MEDS: Folic Acid 1 MG TAB PO SCH (07:50)
[2018-06-03] MEDS: Docusate 100 MG CAP PO SCH ×2 (07:51→20:33)
[2018-06-03] MEDS: pyridOXINE 50 MG (B6) TAB PO SCH (07:51)
--- NOTE | 2018-06-03 11:06 | PRG ---
DATE OF SERVICE: 06/03/2018 SUBJECTIVE: The patient is seen and examined at bedside. His daughter is present during my visit. She answers multiple questions I have regarding his status and condition. Apparently, he is more confused today than what he was a couple of days ago. He is not agitated. OBJECTIVE: VITAL SIGNS: Blood pressure is 130/76, pulse is 77, respiratory rate is 20, O2 saturation is 100% on room air. HEENT: His head is atraumatic and normocephalic. Eyes, PERRLA. Sclerae are nonicteric. Oral mucosa is moist. NECK: Supple. LUNGS: Almost clear with just slightly diminished breath sounds at both bases. HEART: S1 and S2, somewhat irregular. No S3. No S4. No any murmur. ABDOMEN: Soft, nontender, nondistended. Bowel sounds are present. No organomegaly. EXTREMITIES: No clubbing or cyanosis. There is 1 to 2+ peripheral edema similar bilaterally. NEUROLOGIC: He follows my commands, but he is confused and he is able to move his all four extremities. LABORATORY DATA: Showed glycemia, ranging from 129 to 225. IMPRESSION: 1. Toxic metabolic encephalopathy. 2. Most likely aspiration pneumonitis with quick improvement. 3. Paroxysmal atrial fibrillation, on anticoagulation. 4. Hypertension. 5. 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 6. Diabetes mellitus, relatively well controlled. 7. Chronic kidney disease stage 2. 8. Status post TAVR. 9. Status post recent hospitalization at [facility] for encephalopathy with peripheral and diagnostic workup with negative findings. PLAN: I believe that we need to check his free T3 and free T4, make sure that those are within normal range since he is elderly and just TSH in normal range does not rule out abnormalities in T3 and T4. I believe that if this is negative, he should be sent to his well known surroundings at home and his mental condition is going to improve. He is not in delirium. He is in just confusional state. I will probably move him out to the medical floor for additional day and send him home as soon as possible. For now, we will continue current regimen and we will discuss the case with Dr. Marino, who is on-call. Job ID: [id number]
[2018-06-03] MEDS: HumaLOG 300 UNITS/3 ML VIAL SC PRN ×3 (11:22→21:34)
[2018-06-03 11:31] LABS: Free T4 (Free Thyroxine) 1.1 ng/dL (0.70-1.48); Thyroid Stimulating Hormone 0.7829 uIU/mL (0.35-4.94)
--- NOTE | 2018-06-03 12:55 | PRG ---
DATE OF SERVICE: 06/03/2018 SERVICE: Pulmonary Medicine. INTERVAL HISTORY: The patient is doing fine from respiratory standpoint. He is breathing comfortably. He remains encephalopathic. Otherwise, there has been no interval change to his condition. I had a chance to review some of the records from [place]. He went through an extensive evaluation for unknown cephalopathy. Some of that workup is still pending. They never discovered a thyroglobulin level, but outside of that, the workup they went through was fairly exhaustive. PHYSICAL EXAMINATION: VITAL SIGNS: Afebrile, pulse 87, blood pressure 125/71, respirations 16, and saturation 100% on room air. GENERAL: The patient is awake and alert, in no apparent distress. LUNGS: Excellent air entry with no prolonged expiratory phase. HEART: Normal rate, regular. ABDOMEN: Soft, nontender, and nondistended. Bowel sounds are positive. MUSCULOSKELETAL: No cyanosis or clubbing. There is no pitting in the bilateral lower extremities. NEUROLOGIC: Grossly nonfocal. LABORATORY DATA: WBC 6.7, hemoglobin 10.5, and platelets 84,000. T3 is low, T4 is within normal limits. TSH is also normal. Thyroglobulin level is extremely elevated. [facility] studies include negative MRI x2, negative EEG x2, negative paraneoplastic panel, negative encephalopathy panel, and an LP was performed. The LP was absolutely normal and did not have any evidence of inflammatory profile. The only study pending at the time of this dictation is the Creutzfeldt-Stalin protein evaluation (14-3-3). ASSESSMENT: 1. Acute encephalopathy. 2. 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 3. Abnormal thyroglobulin. 4. Pending Creutzfeldt-Stalin protein in CSF (14-3-3). 5. Normal LP at [facility]. DISCUSSION AND PLAN: At this point, we will continue our supportive care including steroids. Pulmonary/Critical Care will continue to follow, but from my perspective, he is stable for transition out of the ICU to the Intermediate Care Unit. Pulmonary/Critical Care will continue to follow. Job ID: [id number]
[2018-06-03 13:41] LABS: Ref Lab Test Ordered THYOGLOBULIN; Reference Lab Name LABCORP
[2018-06-03] MEDS ORDERED: Liothyronine Sodium 25 MCG TAB PO SCH (16:45)
[2018-06-03] MEDS: Lorazepam 2 MG/ML VIAL SLOW IVP SCH (20:55)
[2018-06-03] MEDS: Rosuvastatin 20 MG TAB PO SCH (20:55)
[2018-06-04] MEDS: predniSONE 20 MG TAB PO SCH (08:19)
[2018-06-04] MEDS: Cyanocobalamin (Vitamin B-12) 1,000 MCG TAB PO SCH (09:59)
[2018-06-04] MEDS: Folic Acid 1 MG TAB PO SCH (09:59)
[2018-06-04] MEDS: pyridOXINE 50 MG (B6) TAB PO SCH (09:59)
[2018-06-04] MEDS: Docusate 100 MG CAP PO SCH ×2 (09:59→21:53)
[2018-06-04] MEDS: Dronedarone HCl 400 MG TAB PO SCH ×2 (09:59→21:53)
[2018-06-04] MEDS: Apixaban 2.5 MG TAB PO SCH ×2 (09:59→21:56)
--- NOTE | 2018-06-04 11:07 | PRG ---
DATE OF SERVICE: 06/04/2018 SERVICE: Pulmonary Medicine. SUBJECTIVE: The patient is doing fine from respiratory standpoint. He is breathing comfortably. He is a little bit tachycardic today. He denies any current chest pain, fevers, or chills. He is eating comfortably. His mentation is actually little bit better today based on the family is telling me. He is not having any repetitive language today. That being said, he seems to be fairly distractible, and goes off on tangents. OBJECTIVE: VITAL SIGNS: Afebrile, pulse 76, blood pressure 126/61, respirations 14, and saturation 98% on room air. GENERAL: The patient is awake and alert, in no apparent distress. LUNGS: Decent air entry. There is no prolonged expiratory phase or wheezing. HEART: Normal rate and regular. ABDOMEN: Soft, nontender, and nondistended. Bowel sounds are positive. MUSCULOSKELETAL: No cyanosis or clubbing. There is no pitting in the bilateral lower extremities. NEUROLOGIC: Grossly nonfocal. LABORATORY DATA: The T3 was ever so slightly low. The T4 fell comfortably within the normal limits. TSH was also normal. Blood sugars ranged from 94 up to 253. IMPRESSION: 1. Acute encephalopathy. 2. 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 3. Abnormal thyroglobulin. 4. Pending Creutzfeldt-Stalin protein in cerebrospinal fluid (14-3-3). 5. Normal lumbar puncture at [facility] without an inflammatory profile. 6. Normal EEG x2 and MRI x2. DISCUSSION AND PLAN: We will continue our supportive care. This will include the steroids, as his mentation seems to be improving based on what the family is suggesting. He remained stable for transition out of the ICU to the intermediate care unit. Dr. Garcia will resume care in the morning. Job ID: [id number]
[2018-06-04] MEDS: Haloperidol 5 MG TAB PO SCH ×2 (11:08→21:53)
--- NOTE | 2018-06-04 11:16 | PDOC.PN ---
- Subjective Encounter Start Date: 06/04/18 Encounter Start Time: 11:06 Subjective: grossly oriented, confused and rambling speech - Objective Resuscitation Status - Order Detail: 05/22/18 12:05 Resuscitation Status Routine Resuscitation Status: FULL: Full Resuscitation Discussed with: Per previous order MAR Reviewed: Yes Vital Signs & Weight: Vital Signs (12 hours) Temp Pulse Ox 06/04/18 08:00 98.0 F 96 06/04/18 04:00 98.4 F 06/04/18 00:00 98.1 F Weight Admit Weight 149 lb Weight 146 lb 9.718 oz Most Recent Monitor Data Heart Rate from ECG 76 NIBP 126/61 NIBP BP-Mean 82 Respiration from ECG 14 SpO2 98 I&O: 06/03/18 06/04/18 06/05/18 06:59 06:59 06:59 Intake Total 765 1875 0 Output Total 1550 800 Balance -785 1075 0 Result Diagrams: 06/02/18 06:35 06/02/18 06:35 Additional Labs: Accuchecks 06/04/18 06/03/18 06/03/18 06:27 21:28 17:24 POC Glucose 94 207 H 184 H Phys Exam - Physical Examination Neck: no JVD Respiratory: clear to auscultation bilateral Cardiovascular: RRR, no significant murmur Gastrointestinal: soft, non-tender Musculoskeletal: no edema Dx/Plan (1) Encephalopathy acute Code(s): G93.40 - ENCEPHALOPATHY, UNSPECIFIED Status: Acute (2) Thyroid nodule Code(s): E04.1 - NONTOXIC SINGLE THYROID NODULE Status: Acute (3) Chronic anticoagulation Code(s): 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 Status: Chronic Comment: with frank (4) Diabetes type 2, controlled Code(s): E11.9 - TYPE 2 DIABETES MELLITUS WITHOUT COMPLICATIONS Status: Chronic Qualifiers: Diabetes mellitus manager intermediate insulin use: without manager intermediate use Diabetes mellitus complication status: without complication Qualified Code(s): E11.9 - Type 2 diabetes mellitus without complications (5) PAF (paroxysmal atrial fibrillation) Code(s): I48.0 - PAROXYSMAL ATRIAL FIBRILLATION Status: Chronic Comment: on Multaq (6) Status post transcatheter aortic valve replacement Code(s): Z95.2 - PRESENCE OF PROSTHETIC HEART VALVE Status: Chronic Comment : done in July 2017 - Plan cont current meds -: await pending lab -: Discuss with Dr Garcia * .
[2018-06-04] MEDS: Liothyronine Sodium 25 MCG TAB PO SCH (11:38)
[2018-06-04] MEDS: HumaLOG 300 UNITS/3 ML VIAL SC PRN (11:38)
[2018-06-04] MEDS: Rosuvastatin 20 MG TAB PO SCH (21:53)
[2018-06-04] MEDS: Lorazepam 2 MG/ML VIAL SLOW IVP SCH (21:55)
[2018-06-05] MEDS: predniSONE 20 MG TAB PO SCH (09:30)
[2018-06-05] MEDS: Haloperidol 5 MG TAB PO SCH ×2 (09:31→21:44)
[2018-06-05] MEDS: Dronedarone HCl 400 MG TAB PO SCH ×2 (09:31→21:45)
[2018-06-05] MEDS: Folic Acid 1 MG TAB PO SCH (09:31)
[2018-06-05] MEDS: Docusate 100 MG CAP PO SCH ×2 (09:31→21:45)
[2018-06-05] MEDS: Cyanocobalamin (Vitamin B-12) 1,000 MCG TAB PO SCH (09:32)
[2018-06-05] MEDS: Liothyronine Sodium 25 MCG TAB PO SCH (09:35)
[2018-06-05] MEDS: Apixaban 2.5 MG TAB PO SCH ×2 (09:35→21:44)
[2018-06-05] MEDS: pyridOXINE 50 MG (B6) TAB PO SCH (09:35)
--- NOTE | 2018-06-05 09:35 | PDOC.PN ---
- Subjective Encounter Start Date: 06/05/18 Encounter Start Time: 09:34 Subjective: alert, oriented, less confused - Objective Resuscitation Status - Order Detail: 05/22/18 12:05 Resuscitation Status Routine Resuscitation Status: FULL: Full Resuscitation Discussed with: Per previous order MAR Reviewed: Yes Vital Signs & Weight: Vital Signs (12 hours) Temp Pulse Resp BP Pulse Ox 06/05/18 08:00 98 06/05/18 07:47 99.0 F 92 16 120/68 94 L 06/05/18 04:35 100.4 F H 92 12 152/66 H 95 06/05/18 00:30 98.4 F 109 H 16 151/88 H 99 Weight Admit Weight 149 lb Weight 147 lb Most Recent Monitor Data Heart Rate from ECG 96 NIBP 146/83 NIBP BP-Mean 104 Respiration from ECG 27 SpO2 85 I&O: 06/04/18 06/05/18 06/06/18 06:59 06:59 06:59 Intake Total 1875 890 Output Total 800 175 Balance 1075 715 Result Diagrams: 06/02/18 06:35 06/02/18 06:35 Additional Labs: Accuchecks 06/05/18 06/04/18 07:06 11:32 POC Glucose 125 H 356 H Phys Exam - Physical Examination Neck: no JVD Respiratory: clear to auscultation bilateral Cardiovascular: RRR, no significant murmur Gastrointestinal: soft, positive bowel sounds Musculoskeletal: no edema Neurological: non-focal Dx/Plan (1) Encephalopathy acute Code(s): G93.40 - ENCEPHALOPATHY, UNSPECIFIED Status: Acute (2) Thyroid nodule Code(s): E04.1 - NONTOXIC SINGLE THYROID NODULE Status: Acute (3) Chronic anticoagulation Code(s): 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 Status: Chronic Comment: with frank (4) Diabetes type 2, controlled Code(s): E11.9 - TYPE 2 DIABETES MELLITUS WITHOUT COMPLICATIONS Status: Chronic Qualifiers: Diabetes mellitus mcc insulin use: without ferry terminal agent use Diabetes mellitus complication status: without complication Qualified Code(s): E11.9 - Type 2 diabetes mellitus without complications (5) PAF (paroxysmal atrial fibrillation) Code(s): I48.0 - PAROXYSMAL ATRIAL FIBRILLATION Status: Chronic Comment: on Multaq (6) Status post transcatheter aortic valve replacement Code(s): Z95.2 - PRESENCE OF PROSTHETIC HEART VALVE Status: Chronic Comment : done in July 2017 - Plan cont multaq-AFib -: cont cytomel, B12,B6, folate -: cont prednisone -: discuss with Dr Garcia * .
[2018-06-05] MEDS: HumaLOG 300 UNITS/3 ML VIAL SC PRN ×2 (17:01→21:48)
[2018-06-05] MEDS: Lorazepam 2 MG/ML VIAL SLOW IVP SCH (21:44)
[2018-06-05] MEDS: Rosuvastatin 20 MG TAB PO SCH (21:45)
--- NOTE | 2018-06-05 22:12 | PRG ---
DATE OF SERVICE: 06/05/2018 SUBJECTIVE: Mr. Poole is doing better. He is much more cooperative. OBJECTIVE: VITAL SIGNS: He is afebrile. Heart rate is 92, respiratory rate is 18, oxygen saturation 99% on room air, blood pressure 147/79. LUNGS: Clear. HEART: Regular rhythm. ABDOMEN: Soft. LABORATORY DATA: No recent lab work on blood glucose. IMPRESSION: 1. Encephalopathy? 2. Decompensated dementia. PLAN: Continue supportive care. . Job ID: [id number] [facility]
[2018-06-06] MEDS: Apixaban 2.5 MG TAB PO SCH ×2 (09:12→20:23)
[2018-06-06] MEDS: Docusate 100 MG CAP PO SCH ×2 (09:12→20:23)
[2018-06-06] MEDS: Liothyronine Sodium 25 MCG TAB PO SCH (09:12)
[2018-06-06] MEDS: Dronedarone HCl 400 MG TAB PO SCH ×2 (09:12→20:22)
[2018-06-06] MEDS: Folic Acid 1 MG TAB PO SCH (09:12)
[2018-06-06] MEDS: Cyanocobalamin (Vitamin B-12) 1,000 MCG TAB PO SCH (09:12)
[2018-06-06] MEDS: predniSONE 20 MG TAB PO SCH (09:12)
[2018-06-06] MEDS: Haloperidol 5 MG TAB PO SCH ×2 (09:12→20:22)
[2018-06-06] MEDS: pyridOXINE 50 MG (B6) TAB PO SCH (09:13)
[2018-06-06] MEDS: HumaLOG 300 UNITS/3 ML VIAL SC PRN ×2 (11:38→16:32)
--- NOTE | 2018-06-06 12:04 | PDOC.PN ---
- Subjective Encounter Start Date: 06/06/18 Encounter Start Time: 12:03 Subjective: alert, calm, remains confused - Objective Resuscitation Status - Order Detail: 05/22/18 12:05 Resuscitation Status Routine Resuscitation Status: FULL: Full Resuscitation Discussed with: Per previous order MAR Reviewed: Yes Vital Signs & Weight: Vital Signs (12 hours) Temp Pulse Resp BP BP BP Pulse Ox 06/06/18 11:05 98.6 F 90 16 123/67 98 06/06/18 08:00 98 06/06/18 07:31 98.4 F 93 16 118/64 96 06/06/18 03:54 98.4 F 77 12 124/65 98 Weight Admit Weight 149 lb Weight 147 lb Most Recent Monitor Data Heart Rate from ECG 96 NIBP 146/83 NIBP BP-Mean 104 Respiration from ECG 27 SpO2 85 I&O: 06/05/18 06/06/18 06/07/18 06:59 06:59 06:59 Intake Total 890 Output Total 175 Balance 715 Result Diagrams: 06/02/18 06:35 06/02/18 06:35 Additional Labs: Accuchecks 06/06/18 06/06/18 06/05/18 10:31 05:42 21:22 POC Glucose 194 H 99 202 H 06/05/18 16:39 POC Glucose 192 H Phys Exam - Physical Examination Neck: no JVD Respiratory: clear to auscultation bilateral Cardiovascular: RRR, no significant murmur Gastrointestinal: soft, positive bowel sounds Musculoskeletal: no edema Neurological: non-focal Dx/Plan (1) Encephalopathy acute Code(s): G93.40 - ENCEPHALOPATHY, UNSPECIFIED Status: Acute (2) Thyroid nodule Code(s): E04.1 - NONTOXIC SINGLE THYROID NODULE Status: Acute (3) Chronic anticoagulation Code(s): Z79.01 - SNF (CURRENT) USE OF ANTICOAGULANTS Status: Chronic Comment: with frank (4) Diabetes type 2, controlled Code(s): E11.9 - TYPE 2 DIABETES MELLITUS WITHOUT COMPLICATIONS Status: Chronic Qualifiers: Diabetes mellitus assisted insulin use: without termite control service representative use Diabetes mellitus complication status: without complication Qualified Code(s): E11.9 - Type 2 diabetes mellitus without complications (5) PAF (paroxysmal atrial fibrillation) Code(s): I48.0 - PAROXYSMAL ATRIAL FIBRILLATION Status: Chronic Comment: on Multaq (6) Status post transcatheter aortic valve replacement Code(s): Z95.2 - PRESENCE OF PROSTHETIC HEART VALVE Status: Chronic Comment : done in July 2017 - Plan rpt T3,T4. taper steroids -: DC plAnning * .
[2018-06-06 13:55] LABS: Free T4 (Free Thyroxine) 0.96 ng/dL (0.70-1.48)
--- NOTE | 2018-06-06 16:16 | DIS ---
DATE OF ADMISSION: 05/19/2018 DATE OF DISCHARGE: 06/06/2018 PRIMARY CARE PROVIDER: Marya Balderrama MD DISPOSITION: Discharged to inpatient rehab. FINAL DIAGNOSES: Acute encephalopathy, thyroid nodule, chronic anticoagulation, type 2 diabetes mellitus, paroxysmal atrial fib, post transcatheter aortic valve replacement, hypothyroidism. DISCHARGE MEDICATIONS: 1. Thiamine 100 mg a day. 2. Metformin 500 mg p.o. b.i.d. 3. Eliquis 5 mg twice a day. 4. Crestor 40 mg a day. 5. Multaq 400 mg twice a day. 6. B6 of 50 mg a day. 7. Prednisone 20 mg a day. 8. Cytomel 25 mcg p.o. daily. 9. Haldol 10 mg p.o. b.i.d. 10. Folic acid 1 mg a day. 11. B12 of 1000 mcg a day. ALLERGIES: NO KNOWN DRUG ALLERGIES. PENDING AT TIME OF DISCHARGE: none CODE STATUS: Full. DIET: As tolerated. HOSPITAL COURSE: The patient admitted to [facility] through [place] [facility] to the [facility]. He presented with acute encephalopathy. No past history of dementia. The patient's initial laboratory workup was unremarkable. The patient's CT scan was unremarkable. His speech was garbled, rambling. He was agitated, not oriented. Thyroid ultrasound was done with 4 mm nodule at the right thyroid. EEG was done, normal EEG. Consultation with Dr. Rayo Barrios, who suggested antithyroidal antibody, cortisol, ammonia, anti-Hu antibody. The patient's TSH was normal. T4 was normal. T3 was slightly low. Cortisol was 9.2. Thyroglobulin antibody was high. CT scan of the neck was done, large left thyroid mass. ENT consultation, Dr. Juve Huerta. 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 The patient was started on steroids, prednisone 30 mg a day. Because of the low T3, he was started on Cytomel. Consultation with Dr. Ethan Hoffman was done. He suggested continuing the steroids. The patient previously been seen at [facility] and had a large workup there. The patient has had multiple laboratory tests, which showed no significant change from previous. His T4, T3, and TSH are now normal. The patient is oriented x3. His calcium level is normal. Discussion with Dr. Garcia. The patient is being transferred to inpatient rehab for further treatment. The patient's steroids are being tapered down and should be tapered down rapidly to none. He was initially on 30 mg of prednisone, currently on 20. He is now awake, oriented, but is very confused. The underlying thing at this point is this is a rapid progression of an acute onset dementia of unknown etiology that started earlier this year in July. The patient's family is very desirous of him having a consultation with Endocrinology when he leaves rehab. He also needs to be followed up with Dr. Marya Balderrama when he leaves rehab. Job ID: [id number] [facility]
--- NOTE | 2018-06-06 17:32 | PRG ---
DATE OF SERVICE: 06/06/2018 SUBJECTIVE: Carlito Poole is clinically unchanged. His encephalopathy is manageable at this point. OBJECTIVE: VITAL SIGNS: He is afebrile. Heart rate is 82, respiratory rate 16 , oximetry 90% on room air, blood pressure 119/66. LUNGS: Unchanged. HEART: Unchanged. ABDOMEN: Unchanged. At this point, I do believe it is reasonable for him to go to rehab. I would wean him off prednisone over the next week. I would also consider discontinuing the thyroid medication and just him follow him closely with labs as an outpatient. I suspect with a normal TSH on two occasions, his low T3 was just euthyroid sick syndrome. 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 I believe there is some cerebrospinal fluid studies that are still pending from [place]. These will need to be followed to rule out paraneoplastic encephalopathy. I doubt he has this I will see him as needed in the future. Job ID: [id number] [facility]
[2018-06-06] MEDS: Rosuvastatin 20 MG TAB PO SCH (20:22)
[2018-06-06] MEDS: Lorazepam 2 MG/ML VIAL SLOW IVP SCH (20:23)
[2018-06-07] MEDS: Folic Acid 1 MG TAB PO SCH (08:27)
[2018-06-07] MEDS: Dronedarone HCl 400 MG TAB PO SCH (08:27)
[2018-06-07] MEDS: Docusate 100 MG CAP PO SCH (08:30)
[2018-06-07] MEDS: Haloperidol 5 MG TAB PO SCH (08:30)
[2018-06-07] MEDS: predniSONE 20 MG TAB PO SCH (08:31)
[2018-06-07] MEDS: pyridOXINE 50 MG (B6) TAB PO SCH (08:31)
[2018-06-07] MEDS: Cyanocobalamin (Vitamin B-12) 1,000 MCG TAB PO SCH (08:31)
--- NOTE | 2018-06-07 09:45 | PDOC.PN ---
- Subjective Encounter Start Date: 06/07/18 Encounter Start Time: 09:43 Subjective: alert,calm - Objective Resuscitation Status - Order Detail: 05/22/18 12:05 Resuscitation Status Routine Resuscitation Status: FULL: Full Resuscitation Discussed with: Per previous order Vital Signs & Weight: Vital Signs (12 hours) Temp Pulse Resp BP BP BP Pulse Ox 06/07/18 08:00 97 06/07/18 07:07 98.6 F 75 20 104/61 97 06/07/18 04:00 98.6 F 75 20 127/66 97 06/06/18 23:59 96 06/06/18 23:45 98.1 F 72 18 109/64 96 Weight Admit Weight 149 lb Weight 152 lb 1.6 oz Most Recent Monitor Data Heart Rate from ECG 96 NIBP 146/83 NIBP BP-Mean 104 Respiration from ECG 27 SpO2 85 I&O: 06/06/18 06/07/18 06/08/18 06:59 06:59 06:59 Intake Total 1200 Output Total 0 Balance 1200 Result Diagrams: 06/02/18 06:35 06/02/18 06:35 Additional Labs: Accuchecks 06/07/18 06/06/18 06/06/18 04:27 20:08 16:17 POC Glucose 116 H 163 H 258 H 06/06/18 10:31 POC Glucose 194 H Phys Exam - Physical Examination Neck: no JVD Respiratory: clear to auscultation bilateral Cardiovascular: RRR, no significant murmur Gastrointestinal: soft, non-tender Musculoskeletal: no edema Dx/Plan (1) Encephalopathy acute Code(s): G93.40 - ENCEPHALOPATHY, UNSPECIFIED Status: Acute (2) Thyroid nodule Code(s): E04.1 - NONTOXIC SINGLE THYROID NODULE Status: Acute (3) Chronic anticoagulation Code(s): Z79.01 - RECORD CENTER SPECIALIST (CURRENT) USE OF ANTICOAGULANTS Status: Chronic Comment: with frank (4) Diabetes type 2, controlled Code(s): E11.9 - TYPE 2 DIABETES MELLITUS WITHOUT COMPLICATIONS Status: Chronic Qualifiers: Diabetes mellitus snf insulin use: without snf use Diabetes mellitus complication status: without complication Qualified Code(s): E11.9 - Type 2 diabetes mellitus without complications (5) PAF (paroxysmal atrial fibrillation) Code(s): I48.0 - PAROXYSMAL ATRIAL FIBRILLATION Status: Chronic Comment: on Multaq (6) Status post transcatheter aortic valve replacement Code(s): Z95.2 - PRESENCE OF PROSTHETIC HEART VALVE Status: Chronic Comment : done in July 2017 - Plan transfer to rehab * .
[2018-06-07] MEDS: Apixaban 2.5 MG TAB PO SCH (09:58)
[2018-06-07] MEDS: Liothyronine Sodium 25 MCG TAB PO SCH (09:58)
--- NOTE | 2018-06-07 10:54 | DIS ---
DATE OF ADMISSION: 05/19/2018 DATE OF DISCHARGE: 06/07/2018 ADDENDUM: The only change from the discharge summary dictated yesterday is the date of discharge 06/07/2018. Job ID: [id number]
[2018-06-07 11:11] VITALS: BP 101/68; TEMP 97.8
[2018-06-07] MEDS: HumaLOG 300 UNITS/3 ML VIAL SC PRN (11:31)
--- NOTE | 2018-06-11 15:02 | PQF ---
[employer] Consumer Analyst Crystal Reports Winform ViewerMOUNTAIN VIEW HOSPITALTE LI WHITE, [facility] [phone] [address] [place] [address] [phone] CLINICAL DOCUMENTATION CLARIFICATION FORM: POST DISCHARGE Please exercise your independent, professional judgment in responding to the clarification form. Clinical indicators are provided on the bottom of this form for your review Please check appropriate box(es) if the condition has been ruled in or ruled out : Sepsis [ ] Sepsis due to: (Aspiration Pneumonia) [ ] SIRS due to non-infectious process (please specify etiology) [ ] Severe sepsis with acute organ dysfunction of: (Examples: respiratory failure, encephalopathy, acute kidney failure, other) [ ] Sepsis ruled out [ ] Other diagnosis [ ] Unable to determine In addition, please specify: Present on Admission (POA): [ ] Yes [ ] No [ ] Unable to determine CLINICAL INDICATORS - SIGNS / SYMPTOMS / LABS 1. Altered mental status/encephalopathy 1. 05/30 PN Dx/Plan 1. Toxic metabolic encephalopathy 2. Sepsis with acute organ dysfunction due to Pneumonia ? Aspiration 2. SBP <100mmHg 2. 05/30 vital signs 80/42 L 3. Thrombocytopenia-plts <100k 3. 05/30 labs Plt count: 59 L 4. Shock-hypotension resistant to IV fluid boluses 4. 05/30 event note "Pt went into shock, work up being done, 30 ml/kg given SBP~80 will transfer to icu, consult critical . care for assistance with our patient, start vasopressors, broad spectrum antibiotics..." RISK FACTORS 1. encephalopathy 1. 11/24 H&P 2. advanced age 2. 11/24 H&P TREATMENTS: 1. ICU 1. 05/30 PN transfer to ICU 2. ID Consult 2. 05/[address] Hoffman (This form is maintained as a part of the permanent medical record) 2014 [employer]. All Rights Reserved Karen [email or web address] [phone] LETTY
== END 2018-06-07 13:33 | DRG 643 ==
LOC: ERS 06:58 → 2SE 10:56 → CCU 05-30 06:52 → IMCU/EMU 06-04 15:43 → T4-A 06-06 23:56
PROVIDERS: ADMIT Internal Medicine; ATTEND Internal Medicine
PROC: 0GBG3ZX Excision of Left Thyroid Gland Lobe, Percutaneous Approach, Diagnostic (ICD-10-PCS; principal; 2018-05-28)
PROC: 3E033XZ Introduction of Vasopressor into Peripheral Vein, Percutaneous Approach (ICD-10-PCS; 2018-05-30)
DX: E06.3 Autoimmune thyroiditis (principal); G93.41 Metabolic encephalopathy; R57.9 Shock, unspecified; I48.0 Paroxysmal atrial fibrillation; I12.9 Hypertensive chronic kidney disease with stage 1 through stage 4 chronic kidney disease, or unspecified chronic kidney disease; E11.22 Type 2 diabetes mellitus with diabetic chronic kidney disease; N18.2 Chronic kidney disease, stage 2 (mild); D69.6 Thrombocytopenia, unspecified; F03.90 Unspecified dementia, unspecified severity, without behavioral disturbance, psychotic disturbance, mood disturbance, and anxiety; F41.8 Other specified anxiety disorders; Z86.73 Personal history of transient ischemic attack (TIA), and cerebral infarction without residual deficits; Z95.2 Presence of prosthetic heart valve; Z79.01 Long term (current) use of anticoagulants; Z79.84 Long term (current) use of oral hypoglycemic drugs; Z79.52 Long term (current) use of systemic steroids
CPT/HCPCS: 36415; 36416; 70450; 70490; 70491; 71045; 76140; 76536; 77012; 80048; 80053; 81001; 82140; 82533; 82553; 83605; 83735; 84439; 84443; 84481; 84484; 85007; 85014; 85018; 85025; 85027; 85049; 86255; 86376; 86800; 88173; 93005; 94760; 95816; 95819; 96372; A4216; G8978-GP-CL; G8979-GP-CJ; G8987-GO-CL; G8988-GO-CJ; G8996-GN-CM; G8997-GN-CL; J1200; J1630; J1720; J1940; J2060; J2250; J2543; J2930; J3010; J3370; J3486; J7050; J7506; S0028

== ENCOUNTER 2018-06-17 16:30 | Outpatient (CLI) | payer MEDICARE, BC ==
--- NOTE | 2018-06-17 18:36 | RAD ---
PORTABLE CHEST: HISTORY: Cough and fever. FINDINGS: Heart size appears borderline with an aortic valve prosthesis in place. The density adjacent to the right heart border has been shown to be a hiatal hernial from a previous CT done at [facility]. The lungs themselves are clear of an infiltrative process. IMPRESSION: No active intrathoracic disease. POS: [facility]
== END 2018-06-17 16:31 | disposition home or self-care (01) ==
LOC: RAD 16:30
PROVIDERS: ATTEND Internal Medicine
DX: R50.9 Fever, unspecified (principal); R40.0 Somnolence
CPT/HCPCS: 71045

== ENCOUNTER 2018-07-19 11:53 | Inpatient (IN) | payer MEDICARE, BC ==
--- NOTE | 2018-07-19 13:15 | RAD ---
[facility]: History: Leukocytosis. Sepsis. Comparison: 06-17-18 FINDINGS: Cardiac silhouette is magnified and partially obscured by bibasilar infiltrates and right pleural flu id that have developed since the prior study. Pulmonary vasculature is upper limits of normal. Patien t is slightly rotated rightward. No evidence of pneumothorax. alarm security or surveillance monitor leads overlie the chest . IMPRESSION: Right pleural fluid and bibasilar infiltrates. Clinical correlation regarding other signs and symptom s of CHF versus bibasilar pneumonitis is required. Please consider closed continued radiographic foll ow up. POS: [facility]
[2018-07-19 13:18] LABS: #Lymphocytes 0.5 thou/uL (1.20-3.40); #Monocytes 0.6 thou/uL (0.11-0.59); #Neutrophils 14.3 thou/uL (1.40-6.50); %Eosinophils 0.1 % (0.0-10.0); %Lymphocytes 3.3 % (21.0-51.0); %Monocytes 3.9 % (0.0-10.0); %Neutrophils 92.7 % (42.0-75.0); Hemoglobin 9.8 g/dL (14.0-18.0); Mean Corpuscular HGB CONC 31.8 g/dL (32.0-36.0); Mean Corpuscular Hemoglobin 28.6 pg (27.0-31.0); Mean Corpuscular Volume 89.9 fL (78.0-98.0); Mean Platelet Volume 7.5 fL (7.4-10.4); Platelet Count 196 thou/uL (130-400); RBC Distribution Width 18.6 % (11.5-14.5); Red Blood Cell (RBC) Count 3.42 mill/uL (4.70-6.10); White Blood Cell (WBC) Count 15.5 thou/uL (4.8-10.8)
[2018-07-19 13:45] LABS: ALT (SGPT) 15 U/L (8-55); AST (SGOT) 28 U/L (5-34); Albumin 2.1 g/dL (3.4-4.8); Alkaline Phosphatase 86 U/L (40-150); Anion Gap 13 mmol/L (10-20); BUN (Urea Nitrogen) 35 mg/dL (8.4-25.7); Bilirubin, Total 0.4 mg/dL (0.2-1.2); CK (CPK) 16 U/L (30-200); Calc. Creatinine Clearance 0 mL/min (70-130); Calcium 8.5 mg/dL (7.8-10.44); Carbon Dioxide 28 mmol/L (23-31); Chloride 92 mmol/L (98-107); Estimated GFR-MDRD 88; Glucose 154 mg/dL (83-110); Protein, Total 5.1 g/dL (5.8-8.1); Sodium 129 mmol/L (136-145)
[2018-07-19 14:00] LABS: CKMB 2.5 ng/mL (0-6.6)
[2018-07-19] MEDS ORDERED: Piperacillin/Tazobactam 4.5 GM VIAL ONE (15:29)
--- NOTE | 2018-07-19 15:41 | ULT ---
LEFT UPPER EXTREMITY VENOUS DUPLEX EXAM 07/19/18 HISTORY: Swelling and edema of left arm. Real time color doppler evaluation of the left upper extremity was performed to include the internal jugular, subclavian, axillary, brachial, cephalic, basilic, and forearm veins. This shows a patent de ep venous system. There is normal compressibility and augmentation. There is no evidence of DVT. IMPRESSION: No evidence of DVT of the left upper extremity. POS: [facility]
[2018-07-19] MEDS ORDERED: Sodium Chloride 0.65% Nasal 44 ML BOT EA NARE PRN (16:14)
[2018-07-19] MEDS ORDERED: Diabetic Tussin 200 MG/10 ML UDCUP PO PRN (16:14)
[2018-07-19] MEDS ORDERED: cloNIDine 0.1 MG TAB PO PRN (16:14)
[2018-07-19] MEDS ORDERED: Nitroglycerin 0.4 MG TAB (25 Tab Bottle) SL PRN (16:14)
[2018-07-19] MEDS ORDERED: Benzonatate 100 MG CAP PO PRN (16:14)
[2018-07-19] MEDS ORDERED: Bisacodyl 5 MG TAB PO PRN (16:14)
[2018-07-19] MEDS ORDERED: Senokot S 8.6-50 MG TAB PO PRN ×2 (16:14)
[2018-07-19] MEDS ORDERED: hydrALAZINE 20 MG/ML VIAL SLOW IVP PRN (16:14)
[2018-07-19] MEDS ORDERED: Ondansetron PF 4 MG/2 ML Vial IVP PRN (16:14)
[2018-07-19 16:43] LABS: Troponin I 0.052 ng/mL (< 0.028)
[2018-07-19] MEDS ORDERED: Dextrose 50% Abboject 50 ML SYRINGE SLOW IVP PRN (17:09)
[2018-07-19] MEDS ORDERED: Dextrose 5% in Water 1,000 ML IV PRN (17:09)
[2018-07-19] MEDS ORDERED: HumaLOG 300 UNITS/3 ML VIAL SC PRN (17:09)
[2018-07-19] MEDS ORDERED: traMADol HCl 50 MG TAB PO PRN (17:10)
--- NOTE | 2018-07-19 18:17 | HP ---
PRIMARY CARE PHYSICIAN: Dr. Nelida Au. CHIEF COMPLAINT: Worsening swelling and redness of the lower extremities and abnormal labs. HISTORY OF PRESENTING ILLNESS: Mr. Poole is an 88-year-old male with known history of paroxysmal atrial fibrillation, on chronic anticoagulation as well as thyroid nodule and hypothyroidism and diabetes, multiple TIAs, and history of aortic valve replacement due to aortic stenosis, who presented to the hospital with above-mentioned complaint. History is mainly obtained by the patient's daughter present in the room. The patient does not provide much of the history. I do not know if there is some baseline dementia, but he just keeps complaining of back pain. He was last admitted to our facility in May 2018 at which time, he underwent evaluation for encephalopathy. He was discharged with the diagnosis of metabolic encephalopathy to rehab. The daughter reports that in rehab, he developed bilateral lower extremity cellulitis. He was started on IV antibiotics after consultation with Infectious Disease, Dr. Hoffman, and a PICC line was placed. From there, he was transferred to [facility], where the PICC line was quickly lost and eventually he had to be treated with oral antibiotics. He finished amoxicillin just today, but they noticed that his legs have been more swollen. The daughter reports that initially both of his legs were involved and they have gotten better, but for the last 2 or 3 days they have been noticing a new area of redness on his right lower extremity near his ankle. His legs have always been swollen and when they are elevated, the swelling gets better. Meanwhile, he has also had an echocardiogram done on 06/22/2018, which showed some diastolic dysfunction and EF of 55% to 60%. This was done to rule out any vegetations on his artificial heart valve as reportedly he has developed bacteremia while in the rehab. His blood cultures from 06/17/2018 show enterococcus faecalis. This was resistant to erythromycin, otherwise sensitive to vancomycin and penicillin. Negative for any vegetations. Earlier this month, he also underwent x-ray of thoracic and lumbar spine because of complaints of back pain and being moved deliberately in bed in the rehab facility. 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 Today, his primary care physician found out that he has elevated WBC count and some renal insufficiency, so he was directed to the emergency room. In the ER, he was found to have a leukocytosis of 15.5 with 92% neutrophils. His sodium was found to be 129. His BUN elevated to 34 with normal creatinine of 0.83. GFR estimated at 88. His last BUN from 07/11/2018, which was 42, but his baseline is normal. He also had mild indeterminate range troponin. Lactic acid normal. On his examination, he was found to have right lower extremity cellulitis and received broad-spectrum IV antibiotics namely vancomycin and Zosyn in the ER. He also underwent an ultrasound of his left upper extremity for the concerns of swelling to rule out DVT. There is no evidence of DVT. Chest x-ray is unremarkable without any fluid overload. The chest x-ray was also done, which shows either bibasilar infiltrates versus pulmonary edema. He is now being admitted to medical floor for recurrent cellulitis with failure of outpatient antibiotics with recent bacteremia. PAST MEDICAL HISTORY: 1. Recent bacteremia and lower extremity cellulitis. 2. Chronic paroxysmal atrial fibrillation, on chronic anticoagulation. 3. Chronic lower extremity edema, likely venous insufficiency. 4. Type 2 diabetes mellitus. 5. History of TIA and CVA. 6. History of thyroid mass with biopsy-proven benign nodule. 7. History of TAVR following a diagnosis of aortic stenosis. PAST SURGICAL HISTORY: 1. Transcutaneous aortic valve replacement with bioprosthetic valve. 2. PICC line placement with subsequent removal. 3. Thyroid nodule biopsy on 05/29/2018, which showed benign follicular nodule. 4. 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 CODE STATUS: Full code discussed with the patient and his daughter, who is also his medical power of assistant prosecuting attorney. PAST PSYCHIATRIC HISTORY: Reviewed and none. SOCIAL HISTORY: He is currently living at home. No history of drug, tobacco, or alcohol abuse. 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 FAMILY HISTORY: No significant family history of coronary artery disease, stroke, or cancer. ALLERGIES: NO KNOWN DRUG ALLERGIES. HOME MEDICATIONS: As follows; 1. Metformin 500 daily. 2. Eliquis 5 mg p.o. b.i.d. 3. Multaq 400 b.i.d. 4. Crestor 40 mg daily. 5. Florastor 250 mg daily. 6. Levothyroxine 25 mcg daily. 7. Potassium chloride 20 mEq daily. 8. Lasix 40 mg b.i.d. REVIEW OF SYSTEMS: A 12-point review of system is done, which is largely negative except for those mentioned in history and physical. LABORATORY DATA: CBC shows WBCs 15.5 with 92% neutrophils. Hemoglobin 9.8, and platelet count of 196. Serum chemistry; sodium 129, chloride 92, BUN 35, creatinine 0.83. Lactic acid normal. Serum osmolality normal. Troponin 0.052 with repeat troponin the same with normal CK-MB. DIAGNOSTIC DATA: Chest x-ray by my review shows mild pulmonary vascular congestion versus infiltrate. Left upper extremity ultrasound is negative for any DVT. A 12-lead EKG shows sinus arrhythmia with short VT interval at 87 beats per minute with normal ST-segment and T waves. PHYSICAL EXAMINATION: VITAL SIGNS: Upon presentation; blood pressure 124/81, pulse of 89, respirations 18, saturating 97% on room air, but temperature 98.9. GENERAL: He appears age-appropriate and chronically ill looking, but in no acute distress. He is awake, alert, and oriented x3. For some reason, he does not participate in the interview much, most likely because of the persistent back pain he complains of. HEENT: Mucous membrane is slightly dry. No oropharyngeal exudate or erythema. Head is normocephalic, atraumatic. Pupils are equal and reactive to light and accommodation. Extraocular movement intact. NECK: Supple without any lymphadenopathy, JVD, or bruit. CHEST: Clear to auscultation without any wheezing, rales or rhonchi. HEART: Rate and rhythm are regular without any murmurs, rubs, or gallops. ABDOMEN: Soft, nontender, nondistended. Positive bowel sounds. EXTREMITIES: Show skin tear to the right elbow. Right lower leg, especially surrounding the ankle extending upwards from mid foot is erythema and warmth. Mild receding erythema, which is fading, seen in the left lower extremity as well. Both extremities show +3 pitting edema bilaterally. NEUROLOGICAL: Nonfocal. SKIN: Free of any rashes or bruises. Feels warm and dry to touch. IMPRESSION AND PLAN: 1. Recurrent lower extremity cellulitis with failed outpatient antibiotic therapy. The patient will be admitted to the hospital for IV antibiotic and we will repeat the blood culture. I am not sure if his bacteremia has improved or not with oral amoxicillin. Unfortunately, he lost IV access and lost IV antibiotics, so had to be treated with oral antibiotics. At this time, he will be started on vancomycin and Zosyn and we will request Dr. Hoffman to see him again. Blood cultures have been drawn and will follow the results. Any vegetation on the heart valve was ruled out recently. 2. Hyponatremia. The patient is exhibiting signs and symptoms to suggest mild dehydration. He also has third-spacing of his fluid because of poor albumin. We will give him some normal saline with albumin and monitor his levels very closely. At this time, there is no indication for hypertonic saline as well. We will request Nephrology consultation. 3. Leukocytosis, most likely secondary to ongoing infection. We will monitor the labs. 4. Diabetes mellitus. We will hold his metformin to prevent further renal injury. Start him on insulin sliding scale with frequent Accu-Cheks. 5. History of paroxysmal atrial fibrillation. We will continue his Eliquis and Multaq. He seems to be on a higher dose of Multaq for some reason. I am not sure if this dose has been recent or he has been on it for a while. I will refer him back to his museum or zoo director as I feel the dose can be tapered. Currently, he is in sinus rhythm. 6. Hypothyroidism. Restart his levothyroxine. 7. Chronic lower extremity swelling. His echocardiogram suggested very mild diastolic dysfunction. Currently, he is hypovolemic. We will hold the Lasix for this reason. Please note that the Lasix does not cause hyponatremia. 8. Code status. Full code. 9. Add OT/PT. The patient will most likely need a PICC line and IV antibiotic and placement. 10. Deep venous thrombosis and gastrointestinal prophylaxis. DISPOSITION: Mr. Poole is currently being admitted to the hospital for recurrent cellulitis with failed outpatient antibiotic therapy and hyponatremia. Estimated length of stay at this time is at least 2 to 3 midnights. Further management will depend upon his clinical course. Job ID: [id number]
[2018-07-19 20:15] LABS: Troponin I 0.048 ng/mL (< 0.028)
[2018-07-19] MEDS: Sodium Chloride 0.9% 1,000 ML IV SCH (21:50)
[2018-07-19] MEDS: Famotidine 20 MG TAB PO SCH (21:53)
[2018-07-19] MEDS: Apixaban 5 MG TAB PO SCH (21:53)
[2018-07-19] MEDS: Rosuvastatin 20 MG TAB PO SCH (21:53)
[2018-07-19] MEDS: Cyclobenzaprine 10 MG TAB PO PRN (21:54)
[2018-07-19] MEDS: Piperacillin/Tazobactam 3.375 GM in Sodium Chloride 0.9% 100 ML IVPB SCH (22:04)
[2018-07-20] MEDS: Piperacillin/Tazobactam 3.375 GM in Sodium Chloride 0.9% 100 ML IVPB SCH ×4 (02:41→20:05)
[2018-07-20 03:09] LABS: Bilirubin Negative (Negative); Blood, Urine Negative (Negative); Clarity CLEAR (Clear); Glucose, Urine (Dipstick) Negative (Negative); Leukocyte Negative (Negative); Nitrite Negative (Negative); Protein, Urine (Dipstick) Negative (Neg-Trace); Specific Gravity, Urine 1.022 (1.002-1.036); Urobilinogen 0.2 mg/dL (0.2-1.0); pH, Urine 5.5 (5.0-9.0)
[2018-07-20 03:11] LABS: Urine Culture Reflex No No
[2018-07-20 03:16] LABS: Bacteria/HPF None Seen HPF (None Seen); Hyaline Casts/LPF 0-3 HYALINE CAST LPF (0-3 Hyaline); RBC/HPF 0-3 HPF (0-3); Squamous Epithelial 0-3 HPF (0-3); WBC/HPF 0-3 HPF (0-3)
[2018-07-20 03:25] LABS: Protein, Urine Random Quant 15 mg/dL (1-14); Sodium, Urine Less than 20 mmol/L (Not Available)
[2018-07-20] MEDS: Vancomycin HCl 1 GM in Premix Bag 1 BAG IVPB SCH ×2 (04:19→18:30)
[2018-07-20] MEDS: Sodium Chloride 0.9% 1,000 ML IV SCH (05:38)
[2018-07-20 07:04] LABS: #Lymphocytes 0.8 thou/uL (1.20-3.40); #Monocytes 0.8 thou/uL (0.11-0.59); #Neutrophils 10.4 thou/uL (1.40-6.50); %Basophils 0.1 % (0.0-1.0); %Eosinophils 0.2 % (0.0-10.0); %Lymphocytes 6.5 % (21.0-51.0); %Monocytes 6.4 % (0.0-10.0); %Neutrophils 86.8 % (42.0-75.0); Hemoglobin 8.8 g/dL (14.0-18.0); Mean Corpuscular HGB CONC 32.2 g/dL (32.0-36.0); Mean Corpuscular Hemoglobin 28.8 pg (27.0-31.0); Mean Corpuscular Volume 89.6 fL (78.0-98.0); Mean Platelet Volume 7.9 fL (7.4-10.4); Platelet Count 182 thou/uL (130-400); Red Blood Cell (RBC) Count 3.05 mill/uL (4.70-6.10); White Blood Cell (WBC) Count 11.9 thou/uL (4.8-10.8)
[2018-07-20 07:29] LABS: Anion Gap 12 mmol/L (10-20); BUN (Urea Nitrogen) 27 mg/dL (8.4-25.7); Calc. Creatinine Clearance 81 mL/min (70-130); Calcium 7.9 mg/dL (7.8-10.44); Carbon Dioxide 26 mmol/L (23-31); Chloride 96 mmol/L (98-107); Estimated GFR-MDRD Greater than 90; Glucose 129 mg/dL (83-110); Potassium 3.8 mmol/L (3.5-5.1); Sodium 130 mmol/L (136-145)
[2018-07-20] MEDS: Apixaban 5 MG TAB PO SCH ×2 (08:25→20:05)
[2018-07-20] MEDS: Famotidine 20 MG TAB PO SCH ×2 (08:25→20:05)
[2018-07-20] MEDS: Saccharomyces boulardii 250 MG CAP PO SCH (08:25)
[2018-07-20] MEDS: Dronedarone HCl 400 MG TAB PO SCH ×2 (08:25→16:08)
[2018-07-20] MEDS ORDERED: Albumin 25% 25 GM/100 ML BOT IVPB SCH ×2 (09:00→11:00)
--- NOTE | 2018-07-20 09:26 | CON ---
DATE OF CONSULTATION: 07/19/2018 CONSULTING PHYSICIAN: Dr. Montague. REASON FOR CONSULTATION: Hyponatremia. REASON FOR ADMISSION: Leg swelling. HISTORY OF PRESENT ILLNESS: An 88-year-old male with a history of recent paroxysmal atrial fibrillation, lower extremity edema, type 2 diabetes, TIAs, CVAs, came to the hospital with above complaints. He was found to have sodium of 129. Nephrology was consulted. The patient was started on IV fluids. The patient does have hypoalbuminemia too. The patient denies any nausea or vomiting. No fever. No chills. PAST MEDICAL HISTORY: Positive for atrial fibrillation, edema, hypoalbuminemia, type 2 diabetes, TIA, CVA, thyroid mass, and TAVR. PAST SURGICAL HISTORY: TAVR, PICC line, thyroid nodule biopsy, right eye surgery. HOME MEDICATIONS: Reviewed and included: 1. Metformin. 2. Eliquis. 3. Multaq. 4. Crestor. 5. Florastor. 6. Levothyroxine. 7. Potassium. 8. Lasix. ALLERGIES: NO KNOWN DRUG ALLERGIES. SOCIAL HISTORY: No smoking, alcohol, or illicit drug use. FAMILY HISTORY: No history of any kidney disease. REVIEW OF SYSTEMS: CONSTITUTIONAL: Negative for weight loss or gain, ability to conduct usual activities. SKIN: Negative for rash, itching. EYES: Negative for double vision, pain. ENT/MOUTH: Negative for nose bleeding, neck stiffness, pain, tenderness. CARDIOVASCULAR: Negative for palpitations, dyspnea on exertion, orthopnea. RESPIRATORY: Negative for shortness of breath, wheezing, cough, hemoptysis, fever or night sweats. GASTROINTESTINAL: Negative for poor appetite, abdominal pain, heartburn, nausea, vomiting, constipation, or diarrhea. GENITOURINARY: Negative for urgency, frequency, dysuria, nocturia. MUSCULOSKELETAL: Negative for pain, swelling. NEUROLOGIC/PSYCHIATRIC: Negative for anxiety, depression. ALLERGY/IMMUNOLOGIC: Negative for skin rash, bleeding tendency. PHYSICAL EXAMINATION: GENERAL: This is an elderly male, in no apparent distress. VITAL SIGNS: Temperature 98.9, pulse 89, respiratory rate 18, blood pressure 124/81. HEENT: Atraumatic and normocephalic. Oral mucosa is moist. NECK: Supple. CARDIOVASCULAR: S1 and S2 heard. Rate and rhythm regular. RESPIRATORY: Clear. GASTROINTESTINAL: Abdomen is soft. MUSCULOSKELETAL: . DERMATOLOGIC: No skin rash. NEUROLOGIC: Alert and awake. PSYCHIATRIC: Mood and affect normal. LABORATORY DATA: Hemoglobin is 9.8. Potassium 4.6, sodium 129, BUN 35, creatinine 0.83. ASSESSMENT AND PLAN: 1. Hyponatremia. Agree with IV fluids with close monitoring. 2. Edema. Agree with albumin. 3. Hypoalbuminemia. Check urine protein to creatinine ratio. 4. Anemia, chronic. 5. Hypertension, stable. Agree with albumin and IV fluids. We will check urine protein to creatinine ratio. We will follow. Thank you for the consult. Job ID: [id number]
[2018-07-20] MEDS: Liothyronine Sodium 25 MCG TAB PO SCH (09:52)
--- NOTE | 2018-07-20 11:19 | PRG ---
DATE OF SERVICE: 07/20/2018 SUBJECTIVE: Patient was seen and examined at bedside and overnight events noted. Patient denies any shortness of breath or chest pain or palpitation. No history of nausea or vomiting or diarrhea or fever or chills or cramps. OBJECTIVE: GENERAL: This is an elderly male, in no apparent distress. VITAL SIGNS: Temperature 98.1. Pulse 69. Respiratory rate 18. Blood pressure 118/73. HEENT: Atraumatic, normocephalic. Oral mucosa is moist NECK: Supple. CARDIOVASCULAR: S1, S2 heard. Rate and rhythm regular. RESPIRATORY: Clear to auscultation. GASTROINTESTINAL: Abdomen is soft. MUSCULOSKELETAL: No tenderness. No edema. DERMATOLOGIC: No skin rash. NEUROLOGIC: Alert and awake and oriented X3. No focal neurologic deficits. Moving all the extremities. PSYCHIATRIC: Mood and affect normal. LABORATORY DATA: Potassium is 3.8, BUN is 27, . ASSESSMENT AND PLAN: 1. Hyponatremia. Sodium level is 130 from 129 yesterday, not much improvement. I am not sure how much fluid he can tolerate, but I am going to go ahead and stop IV fluids. We will attempt to volume expand with albumin. 2. Edema, no significant proteinuria. 3. Hypoalbuminemia. We will add protein supplements. No proteinuria detected. Continue albumin. . 4. Anemia, which is chronic. 5. Hypertension, stable. Prognosis is guarded. We will continue albumin, stop IV fluids, and add protein supplements. We will follow. Job ID: [id number]
[2018-07-20] MEDS: Albumin 25% 25 GM/100 ML BOT IVPB SCH ×2 (15:57→20:04)
[2018-07-20 16:57] VITALS: BMI 27.1
[2018-07-20] MEDS: HumaLOG 300 UNITS/3 ML VIAL SC PRN (18:30)
--- NOTE | 2018-07-20 20:01 | PDOC.PN ---
- Subjective Encounter Start Date: 07/20/18 Encounter Start Time: 11:00 Subjective: sleepy, no complaints or apparent distress - Objective Resuscitation Status - Order Detail: 07/19/18 17:10 Resuscitation Status Routine Resuscitation Status: FULL: Full Resuscitation Discussed with: discussed w pt and daughter ([email or web address]) Vital Signs & Weight: Vital Signs (12 hours) Temp Pulse Resp BP Pulse Ox 07/20/18 16:11 98.5 F 87 18 121/76 96 07/20/18 08:00 96 Weight Admit Weight 173 lb 0.96 oz Weight 173 lb 1.006 oz I&O: 07/19/18 07/20/18 07/21/18 06:59 06:59 06:59 Intake Total 1100 Output Total 350 Balance 750 Result Diagrams: 07/20/18 06:37 07/20/18 06:37 Additional Labs: Accuchecks 07/20/18 07/20/18 07/19/18 16:13 04:52 22:04 POC Glucose 205 H 127 H 130 H Phys Exam - Physical Examination HEENT: PERRLA, moist MMs, sclera anicteric, TM's clear, oral pharynx no lesions , 2+ tonsils Neck: no nodes, no JVD, supple, full ROM Respiratory: no wheezing, no rales Cardiovascular: RRR, no significant murmur Gastrointestinal: soft, non-tender, no distention Musculoskeletal: edema present LE chronic skin changes sleeping, does not respond, incoherent speech Dx/Plan (1) Hyponatremia Code(s): E87.1 - HYPO-OSMOLALITY AND HYPONATREMIA Status: Acute Comment: fluid restrict (2) Cellulitis Code(s): L03.90 - CELLULITIS, UNSPECIFIED Status: Acute Qualifiers: Site of cellulitis of extremity: lower extremity Comment: continue abx - Plan cont current plan of care, plan discussed w/ family, continue antibiotics, clinical social work therapist * .
[2018-07-20] MEDS: Rosuvastatin 20 MG TAB PO SCH (20:05)
[2018-07-20] MEDS: Cyclobenzaprine 10 MG TAB PO PRN (20:16)
--- NOTE | 2018-07-20 20:17 | CON ---
DATE OF CONSULTATION: 07/20/2018 REASON FOR CONSULTATION: Possible cellulitis. HISTORY OF PRESENT ILLNESS: An 88-year-old patient, known to me from prior visits both here as well as at [facility], who has a history of aortic valve stenosis with percutaneous aortic valve replacement in [place] as well as type 2 diabetes. In May, he was admitted to [facility] with possible encephalitis. He had been since made a year to [facility] with difficulty in finding words and balance problems and decreased ability to interact with family members. To make a long story short, his illness progressed through the next two months with chronic progression of worsening cognitive difficulties and he ended up admitted to [facility]. The workup included MRIs, which showed no evidence of acute infarction and CSF evaluation, which showed mild elevation of protein. The evaluation at [facility] included a submission of paraneoplastic autoantibody panel, which was negative. The patient did have positive antithyroglobulin antibody test positive, in fact highly positive and in the end, he ended up on prednisone, which was continued in the [facility] with marked improvement in his cognitive ability. For example, in the ICU when I saw him, he was barely able to open his eyes in [facility]. He was awake and alert even with a good sense of humor. I had seen him at [facility] because of Enterococcus faecalis bacteremia 1/2 sets of blood cultures, felt to be due to urinary tract infection. He was treated with amoxicillin and then he was sent home about 2 weeks ago. Now, he was brought back to the hospital because of redness and pain in the right lower extremity associated with swelling. The swelling is secondary to edema, but the redness is new. On arrival, his white cell count is elevated at 15.5 with 92% neutrophils. Initial findings included BP 120/80, pulse 89, respirations 18, O2 saturation 97%, temperature 98.9. Chronically ill appearing, in no distress, oriented x3, having some back pain. Chest was clear. Heart exam normal. Abdomen, soft. No major comment made on the skin. In the right leg, there was, however, erythema and warmth and tenderness. Currently, Mr. Poole is awake. He has bit more dysarthric speech than when I saw him at [facility], still oriented and follows commands, fairly decent recollection. Denies headaches. No sore throat, odynophagia, or dysphagia. Moderate low back pain, unclear the acuity of this pain. It looks like it has been there for a few weeks. Pain in the right lower extremity, more on the right than the left side. 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 PAST SURGICAL HISTORY: As above plus PICC line placement and removal, thyroid nodule biopsy. 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 Never smoker. FAMILY HISTORY: Noncontributory. CURRENT MEDICATIONS: P.r.n. medications are, 1. Eliquis. 2. Tessalon. 3. Dulcolax. 4. Tums. 5. Catapres. 6. Flexeril. 7. Multaq. 8. Pepcid. 9. Glucagon. 10. Robitussin. 11. Insulin. 12. Cytomel. 13. Zosyn. 14. Vancomycin. PHYSICAL EXAMINATION: VITAL SIGNS: T-max 98.1, BP 118/76, pulse 89, respirations 18, O2 saturation 96% on room air. GENERAL: Appears in no distress, awake. SKIN: Shows the area of erythema in the right ankle region in a circumferential distribution. It does not extend towards the leg itself. Again, it does not extend towards the upper segments of the leg skin. There is pain on range of motion of the right ankle. HEAD/NECK: No lymphadenopathy. Ocular movements conjugate. Oral cavity with numerous teeth in place with quite a bit of decay and gum disease. Neck is supple. No jugular vein distention. LUNGS: Symmetric air entry. HEART: S1, S2 with a soft aortic murmur. Regular rate. No S3. ABDOMEN: Soft, not distended or tender. No ascites. No bladder distention. EXTREMITIES: No other joint inflammatory activity noted. Pulses 1+ in dorsalis pedis. 2+ edema in the lower extremities. He is able to move extremities equally with limitations imposed by the inflammatory process in the right lower extremity. NEURO: He is awake, knows his name. He knew where he was. LABORATORY DATA: White cell count 15.5 and 11.9, hemoglobin 9.8, platelets 196, 92% neutrophils. Sodium 130, creatinine 0.73. Lactic acid 2.0. AST 28, ALT 15. CK 16. Albumin 2.1. MICROBIOLOGY: With 2 sets of blood cultures thus far no growth. IMAGING STUDIES: There is a vascular ultrasound from 07/19 with no evidence of deep vein thrombosis and there is a thoracic spine x-ray from July 02 with degenerative changes in the lumbar spine x-ray with spondylosis. Echocardiogram: Diastolic dysfunction, EF% 55 to 60%, moderate tricuspid regurg. No vegetations noted. Chest x-ray on the with pleural fluid on the right side, bibasilar infiltrates. ASSESSMENT: 1. Type 2 diabetes, recent diagnosis of autoimmune encephalitis, treated with steroids with marked improvement. Steroids have been discontinued. 2. Thyroid mass with one biopsy showing normal thyroid tissue. 3. Enterococcus faecalis bacteremia, which is felt to be secondary to urinary tract infection, recently diagnosed at the [facility], treated with amoxicillin. 4. Pain with erythema, right ankle area. DISCUSSION: Differential diagnosis includes inflammatory right ankle arthropathy versus cellulitis. In view of the pain on range of motion and the limitation of the erythema over the right ankle joint, my concern is with inflammatory arthropathy either due to infectious process or gout or other crystal-induced mono arthritis. Ideally, one would like to attempt an arthrocentesis to submit for crystal analysis if there is joint fluid available. We will check uric acid levels. Recheck antithyroglobulin antibodies to see if they are raising again after the steroids were discontinued. He may have a relapse of the encephalitis in that case. Regarding the low back pain, if there is persistent exacerbation, we will have to order an MRI to rule out diskitis/osteomyelitis. Job ID: [id number]
[2018-07-20] MEDS: Acetaminophen 325 MG TAB PO PRN (23:30)
[2018-07-21] MEDS: Piperacillin/Tazobactam 3.375 GM in Sodium Chloride 0.9% 100 ML IVPB SCH ×4 (02:23→20:31)
[2018-07-21] MEDS: Albumin 25% 25 GM/100 ML BOT IVPB SCH ×2 (02:58→07:49)
[2018-07-21 03:55] LABS: Vancomycin, Trough 15.4 ug/mL
[2018-07-21 03:56] LABS: Anion Gap 10 mmol/L (10-20); BUN (Urea Nitrogen) 19 mg/dL (8.4-25.7); Calc. Creatinine Clearance 87 mL/min (70-130); Calcium 7.7 mg/dL (7.8-10.44); Carbon Dioxide 27 mmol/L (23-31); Chloride 95 mmol/L (98-107); Estimated GFR-MDRD Greater than 90; Glucose 128 mg/dL (83-110); Potassium 3.7 mmol/L (3.5-5.1); Sodium 128 mmol/L (136-145)
[2018-07-21] MEDS: Vancomycin HCl 1 GM in Premix Bag 1 BAG IVPB SCH ×2 (04:39→15:51)
[2018-07-21] MEDS: Dronedarone HCl 400 MG TAB PO SCH ×2 (07:49→17:21)
[2018-07-21] MEDS: Apixaban 5 MG TAB PO SCH ×2 (07:49→20:30)
[2018-07-21] MEDS: Liothyronine Sodium 25 MCG TAB PO SCH (07:49)
[2018-07-21] MEDS: Saccharomyces boulardii 250 MG CAP PO SCH (07:50)
[2018-07-21] MEDS: Famotidine 20 MG TAB PO SCH ×2 (07:50→20:30)
[2018-07-21] MEDS: Cyclobenzaprine 10 MG TAB PO PRN (08:23)
--- NOTE | 2018-07-21 14:14 | PDOC.PN ---
- Subjective Encounter Start Date: 07/21/18 Encounter Start Time: 14:13 Subjective: Sleepy, severe back pain, - Objective Resuscitation Status - Order Detail: 07/19/18 17:10 Resuscitation Status Routine Resuscitation Status: FULL: Full Resuscitation Discussed with: discussed w pt and daughter (JABARI) Vital Signs & Weight: Vital Signs (12 hours) Temp Pulse Resp BP BP Pulse Ox 07/21/18 11:20 98.0 F 90 20 111/66 90 L 07/21/18 08:00 98 07/21/18 07:46 97.9 F 84 16 110/70 98 07/21/18 05:04 98 F 89 16 113/75 92 L Weight Admit Weight 173 lb 0.96 oz Weight 173 lb 1.006 oz I&O: 07/20/18 07/21/18 07/22/18 06:59 06:59 06:59 Intake Total 1100 200 480 Output Total 350 150 Balance 750 200 330 Result Diagrams: 07/20/18 06:37 07/21/18 03:27 Additional Labs: Accuchecks 07/21/18 07/21/18 07/20/18 11:21 05:02 20:30 POC Glucose 141 H 131 H 202 H 07/20/18 16:13 POC Glucose 205 H Phys Exam - Physical Examination HEENT: PERRLA, moist MMs, sclera anicteric, TM's clear, oral pharynx no lesions , 2+ tonsils Neck: no nodes, no JVD, supple, full ROM Respiratory: no wheezing, no rales, no rhonchi Cardiovascular: RRR, no significant murmur Gastrointestinal: soft, non-tender, no distention Musculoskeletal: edema present Neurological: non-focal, normal sensation, moves all 4 limbs Psychiatric: normal affect Deviation from normal: mild rle rash Dx/Plan (1) Hyponatremia Code(s): E87.1 - HYPO-OSMOLALITY AND HYPONATREMIA Status: Acute Comment: fluid restrict (2) Cellulitis Code(s): L03.90 - CELLULITIS, UNSPECIFIED Status: Acute Qualifiers: Site of cellulitis of extremity: lower extremity Comment: continue abx - Plan cont current plan of care, plan discussed w/ family, continue antibiotics long DW family, Recent history of encephalopathy with elevated -: anti thyroglobulin antibody, was treated with high dose steroids. Recent -: significant LE edema and cellulitis, responded to abx. -: Overall decline in the status, very weak, DW family about DNR. * .
[2018-07-21] MEDS: Acetaminophen 325 MG TAB PO PRN ×2 (14:32→20:31)
[2018-07-21] MEDS: HumaLOG 300 UNITS/3 ML VIAL SC PRN (15:52)
--- NOTE | 2018-07-21 15:54 | PRG ---
DATE OF SERVICE: 07/21/2018 SUBJECTIVE: Patient was seen and examined at bedside and overnight events noted. Patient denies any shortness of breath or chest pain or palpitation. No history of nausea or vomiting or diarrhea or fever or chills or cramps. OBJECTIVE: GENERAL: This is an elderly male, in no acute distress. VITAL SIGNS: Temperature 98.0. Heart rate 90. Respiratory rate 18. Blood pressure 111/66. HEENT: Atraumatic, normocephalic. Oral mucosa is moist NECK: Supple. CARDIOVASCULAR: S1, S2 heard. Rate and rhythm regular. RESPIRATORY: Clear to auscultation. GASTROINTESTINAL: Abdomen is soft. MUSCULOSKELETAL: No tenderness. 2+ edema. DERMATOLOGIC: No skin rash. NEUROLOGIC: Alert and awake and oriented X3. No focal neurologic deficits. Moving all the extremities. PSYCHIATRIC: Mood and affect normal. LABORATORY DATA: Sodium is 128, potassium is 3.7, BUN is 19, creatinine is 0.6. Hemoglobin is 8.8. ASSESSMENT AND PLAN: 1. Hyponatremia, not responding to IV fluids. The patient is severely edematous. 2. Edema. 3. Hypoalbuminemia. 4. Anemia, which is chronic. 5. Hypertension, stable. Overall, prognosis is very poor. I had a lengthy discussion with the family and answered all the questions. The patient remains chronically hypoalbuminemic with poor nutritional status and anemia. Overall, his status is declining. Case discussed with Dr. Lo too. Consult his comfort measures. Prognosis is guarded. Job ID: [id number]
[2018-07-21] MEDS: Rosuvastatin 20 MG TAB PO SCH (20:30)
[2018-07-22] MEDS: Piperacillin/Tazobactam 3.375 GM in Sodium Chloride 0.9% 100 ML IVPB SCH ×4 (02:14→20:27)
[2018-07-22] MEDS: Vancomycin HCl 1 GM in Premix Bag 1 BAG IVPB SCH ×2 (03:16→15:57)
[2018-07-22] MEDS: HumaLOG 300 UNITS/3 ML VIAL SC PRN ×2 (06:41→16:11)
[2018-07-22] MEDS: Calcium Carbonate 500 MG ChewTAB PO PRN ×2 (09:30→18:04)
[2018-07-22] MEDS: Liothyronine Sodium 25 MCG TAB PO SCH (09:30)
[2018-07-22] MEDS: Dronedarone HCl 400 MG TAB PO SCH ×2 (09:31→15:58)
[2018-07-22] MEDS: Famotidine 20 MG TAB PO SCH ×2 (09:31→20:27)
[2018-07-22] MEDS: Saccharomyces boulardii 250 MG CAP PO SCH (09:31)
[2018-07-22] MEDS: Apixaban 5 MG TAB PO SCH ×2 (09:31→20:27)
[2018-07-22] MEDS: Acetaminophen 325 MG TAB PO PRN (11:50)
[2018-07-22 13:36] LABS: Anion Gap 10 mmol/L (10-20); BUN (Urea Nitrogen) 15 mg/dL (8.4-25.7); Calc. Creatinine Clearance 82 mL/min (70-130); Carbon Dioxide 26 mmol/L (23-31); Chloride 95 mmol/L (98-107); Estimated GFR-MDRD Greater than 90; Glucose 274 mg/dL (83-110); Potassium 3.9 mmol/L (3.5-5.1); Sodium 127 mmol/L (136-145)
--- NOTE | 2018-07-22 14:40 | PDOC.PN ---
- Subjective Encounter Start Date: 07/22/18 Encounter Start Time: 14:39 Subjective: doing better, more alert, sitting on the chair, eating - Objective Resuscitation Status - Order Detail: 07/19/18 17:10 Resuscitation Status Routine Resuscitation Status: FULL: Full Resuscitation Discussed with: discussed w pt and daughter (JABARI) Vital Signs & Weight: Vital Signs (12 hours) Temp Pulse Resp BP BP Pulse Ox 07/22/18 08:56 97.6 F 94 18 121/64 95 07/22/18 08:00 95 07/22/18 05:40 98.1 F 88 16 123/80 98 Weight Admit Weight 173 lb 0.96 oz Weight 173 lb 1.006 oz I&O: 07/21/18 07/22/18 07/23/18 06:59 06:59 06:59 Intake Total 200 1620 Output Total 400 Balance 200 1220 Result Diagrams: 07/20/18 06:37 07/22/18 13:08 Additional Labs: Accuchecks 07/22/18 07/22/18 07/21/18 14:08 05:15 20:44 POC Glucose 279 H 211 H 176 H 07/21/18 15:52 POC Glucose 270 H Phys Exam - Physical Examination HEENT: PERRLA, moist MMs, sclera anicteric, TM's clear, oral pharynx no lesions Neck: supple Respiratory: no wheezing, no rales, no rhonchi Cardiovascular: RRR, no significant murmur, no rub Gastrointestinal: soft, non-tender, no distention, positive bowel sounds Musculoskeletal: edema present Neurological: non-focal, normal sensation, moves all 4 limbs Psychiatric: normal affect, A&O x 3 Deviation from normal: right ankle redness, decreased from previous admission Dx/Plan (1) Hyponatremia Code(s): E87.1 - HYPO-OSMOLALITY AND HYPONATREMIA Status: Acute Comment: fluid restrict, na continues to trend down. (2) Cellulitis Code(s): L03.90 - CELLULITIS, UNSPECIFIED Status: Acute Qualifiers: Site of cellulitis of extremity: lower extremity Comment: continue abx - Plan cont current plan of care, plan discussed w/ family, continue antibiotics * .
[2018-07-22 15:37] LABS: Vancomycin, Trough 17.8 ug/mL
[2018-07-22] MEDS ORDERED: Albumin 25% 25 GM/100 ML BOT IVPB SCH (18:30)
[2018-07-22] MEDS ORDERED: Furosemide 40 MG/4 ML VIAL SLOW IVP SCH (18:30)
[2018-07-22] MEDS: Rosuvastatin 20 MG TAB PO SCH (20:27)
[2018-07-23] MEDS: Piperacillin/Tazobactam 3.375 GM in Sodium Chloride 0.9% 100 ML IVPB SCH ×3 (02:45→16:49)
[2018-07-23] MEDS: Vancomycin HCl 1 GM in Premix Bag 1 BAG IVPB SCH ×2 (03:16→16:50)
[2018-07-23] MEDS: HumaLOG 300 UNITS/3 ML VIAL SC PRN (05:14)
[2018-07-23] MEDS: Acetaminophen 325 MG TAB PO PRN (05:14)
[2018-07-23] MEDS: Saccharomyces boulardii 250 MG CAP PO SCH (08:16)
[2018-07-23] MEDS: Liothyronine Sodium 25 MCG TAB PO SCH (08:16)
[2018-07-23] MEDS: Famotidine 20 MG TAB PO SCH (08:16)
[2018-07-23] MEDS: Apixaban 5 MG TAB PO SCH (08:16)
[2018-07-23] MEDS: Dronedarone HCl 400 MG TAB PO SCH (08:16)
--- NOTE | 2018-07-23 09:24 | PRG ---
DATE OF SERVICE: 07/22/2018 SUBJECTIVE: Patient was seen and examined at bedside and overnight events noted. Patient denies any shortness of breath or chest pain or palpitation. No history of nausea or vomiting or diarrhea or fever or chills or cramps. OBJECTIVE: GENERAL: This is an elderly male, in no apparent distress. VITAL SIGNS: Temperature 97.6. Heart rate 94. Respiratory rate 18. Blood pressure 121/64. HEENT: Atraumatic, normocephalic. Oral mucosa is moist NECK: Supple. CARDIOVASCULAR: S1, S2 heard. Rate and rhythm regular. RESPIRATORY: Clear to auscultation. GASTROINTESTINAL: Abdomen is soft. MUSCULOSKELETAL: No tenderness. No edema. DERMATOLOGIC: No skin rash. NEUROLOGIC: Alert and awake and oriented X3. No focal neurologic deficits. Moving all the extremities. PSYCHIATRIC: Mood and affect normal. LABORATORY DATA: Not done today. ASSESSMENT AND PLAN: 1. Hyponatremia. We will monitor labs. 2. Edema. Seems to be slightly better. 3. Hypoalbuminemia. Encourage protein intake. 4. Anemia, which is chronic. 5. Hypertension. We will recheck labs today and further decision will be made based on the labs results and clinical course. Job ID: [id number]
[2018-07-23] MEDS: Calcium Carbonate 500 MG ChewTAB PO PRN (10:04)
[2018-07-23 11:20] LABS: Anion Gap 15 mmol/L (10-20); BUN (Urea Nitrogen) 14 mg/dL (8.4-25.7); Calc. Creatinine Clearance 89 mL/min (70-130); Calcium 7.7 mg/dL (7.8-10.44); Carbon Dioxide 24 mmol/L (23-31); Chloride 94 mmol/L (98-107); Estimated GFR-MDRD Greater than 90; Glucose 189 mg/dL (83-110); Potassium 3.7 mmol/L (3.5-5.1); Sodium 129 mmol/L (136-145)
--- NOTE | 2018-07-23 14:26 | PRG ---
DATE OF SERVICE: 07/23/2018 SUBJECTIVE: An 88-year-old male, being seen for acute kidney injury. The patient denied any nausea, vomiting, or chest pain. OBJECTIVE: GENERAL: The patient is awake and alert. VITAL SIGNS: Afebrile. pulse 94, breathing 16, blood pressure 114/74. GENERAL APPEARANCE AND MENTAL STATUS: Fair. HEAD/NECK: Normocephalic. Atraumatic. EYES: EOMI. No deformity. EARS: Clear. No ulcers. NOSE: Intact. No lesions. MOUTH: Clear. No discharge. THROAT: Clear. No exudate. LUNGS: Clear. No crackles. CARDIAC: S1, S2. No rub. ABDOMEN: Benign. Bowel sounds positive. GENITALIA/RECTUM: Harmon absent. BACK/EXTREMITIES: Edema 0+. NEUROLOGICAL: Alert and motor intact. SKIN: LYMPHATICS: LABORATORY DATA: Hemoglobin 8.8. Creatinine 0.66. ASSESSMENT AND PLAN: 1. Hyponatremia, improved. 2. Hypertension, stable. 3. Anemia, stable. 4. Medications based on GFR appropriate. 5. Congestive heart failure, continue with Lasix b.i.d. I will sign off on this patient, please reconsult as needed. Job ID: [id number]
[2018-07-23 16:22] VITALS: BP 109/75; TEMP 97.4
--- NOTE | 2018-07-24 05:52 | DIS ---
DATE OF ADMISSION: 07/19/2018 DATE OF DISCHARGE: 07/23/2018 ADMISSION DIAGNOSES: 1. Worsening bilateral pedal edema. 2. Hyponatremia. 3. Cellulitis. DISCHARGE DIAGNOSES: 1. Anasarca 2. Hyponatremia. 3. Cellulitis. HISTORY OF PRESENTING ILLNESS: This is an 88-year-old male who was recently admitted for metabolic encephalopathy, during which time he was found to be having significantly elevated antithyroid antiglobulin antibodies with altered mental status. The patient was treated with very high dose steroids after which he started responding and then he was released to the rehab with a tapering doses of steroids. The patient when in rehab developed severe lower extremity edema, cellulitis for which he was again admitted to the hospital for IV antibiotics and then discharged with a PICC line to continue the IV antibiotics. Once the patient completed his IV antibiotics, he was converted to oral antibiotics. Since then,the patient's overall condition has significantly declined with increasing anasarca and hyponatremia, weakness. Family was concerned that the cellulitis was back again in his right lower extremity. On examination, the patient had anasarca with a sodium of 128 and mild redness on the dorsal surface of his ankle. The patient was treated with IV albumin for hypoalbuminemia with the knowledge that albumin is not going to help long-term and fluid restrict combined with IV Lasix. The cellulitis was not thought to be significant, and he did receive vanc and Zosyn here, but was discharged with Levaquin. Due to the hypoalbuminemia, the patient was encouraged to increase his protein intake and family is pretty good with it and trying to supplement it with Ensure and protein powder and protein rich diet as such. Previous echocardiogram of the patient shows preserved ejection fraction. So during discharge, I increased his p.o. Lasix to 80 mg p.o. q.a.m. and 40 mg p.o. q.p.m. If the patient can tolerate, his Lasix can be increased as outpatient as his creatinine is well within normal limits. DISCHARGE INSTRUCTIONS: 1. Increase Lasix to 80 mg p.o. q.a.m. and 40 mg p.o. at 2 p.m. 2. Continue home medications. 3. Levaquin for his cellulitis 4. Continue home medications. 5. Follow up with renal doctor, Dr. Vernon and also the primary care physician. 6. Activity as tolerated. 7. Fluid restrict to 1500 mL per day. 8. Increase protein intake Job ID: [id number] MTDD
== END 2018-07-23 16:29 | disposition home health service (06) | DRG 603 ==
LOC: ERS 11:53 → ERHOLD 15:55 → T4-B 20:42
PROVIDERS: ADMIT Internal Medicine; ATTEND Internal Medicine
DX: L03.116 Cellulitis of left lower limb (principal); E87.1 Hypo-osmolality and hyponatremia; N17.9 Acute kidney failure, unspecified; L03.115 Cellulitis of right lower limb; I48.2 Chronic atrial fibrillation; Z79.01 Long term (current) use of anticoagulants; E11.9 Type 2 diabetes mellitus without complications; Z86.73 Personal history of transient ischemic attack (TIA), and cerebral infarction without residual deficits; E03.9 Hypothyroidism, unspecified; Z95.2 Presence of prosthetic heart valve; I35.0 Nonrheumatic aortic (valve) stenosis; Z79.899 Other long term (current) drug therapy; D72.828 Other elevated white blood cell count; D64.9 Anemia, unspecified; I50.9 Heart failure, unspecified
CPT/HCPCS: 36415; 36416; 71045; 80048; 80053; 80202; 81001; 82550; 82553; 82570; 83605; 83880; 83930; 84156; 84300; 84484; 84550; 85025; 87040; 93005; 94760; 96365; 96367; J1940; J2543; J3370; J7050; P9047

== ENCOUNTER 2018-08-03 14:03 | Inpatient (IN) | payer MEDICARE, BC ==
[2018-08-03 15:19] LABS: #Lymphocytes 0.4 thou/uL (1.20-3.40); #Monocytes 0.5 thou/uL (0.11-0.59); #Neutrophils 12.3 thou/uL (1.40-6.50); %Eosinophils 0.1 % (0.0-10.0); %Lymphocytes 3.2 % (21.0-51.0); %Monocytes 3.8 % (0.0-10.0); %Neutrophils 92.8 % (42.0-75.0); Hemoglobin 9.3 g/dL (14.0-18.0); Mean Corpuscular HGB CONC 30.3 g/dL (32.0-36.0); Mean Corpuscular Hemoglobin 28.5 pg (27.0-31.0); Mean Corpuscular Volume 93.9 fL (78.0-98.0); Mean Platelet Volume 9.6 fL (7.4-10.4); Platelet Count 154 thou/uL (130-400); RBC Distribution Width 19.3 % (11.5-14.5); Red Blood Cell (RBC) Count 3.26 mill/uL (4.70-6.10); White Blood Cell (WBC) Count 13.2 thou/uL (4.8-10.8)
--- NOTE | 2018-08-03 15:23 | RAD ---
PORTABLE CHEST: DATE: 08/03/2018. PROVIDED CLINICAL HISTORY: Altered mental status. FINDINGS: Comparison is made with the study dated 07/19/2018. The lungs are hypoinflated, limiting evaluation. Cardiac enlargement is again suggested. Bibasilar pleural parenchymal opacities are again seen. No evidence for pneumothorax. IMPRESSION: Hypoinflated exam with bibasilar pleural parenchymal opacities. Followup is recommended. POS: [facility]
[2018-08-03 15:25] LABS: INR-International Normal Ratio 2.5; PTT 32.7 SEC (22.9-36.1); Prothrombin Time 27.4 SEC (12.0-14.7)
[2018-08-03 15:40] LABS: ALT (SGPT) 15 U/L (8-55); AST (SGOT) 34 U/L (5-34); Albumin 2.8 g/dL (3.4-4.8); Alkaline Phosphatase 98 U/L (40-150); Anion Gap 17 mmol/L (10-20); BUN (Urea Nitrogen) 59 mg/dL (8.4-25.7); Bilirubin, Total 0.9 mg/dL (0.2-1.2); CK (CPK) 107 U/L (30-200); Calc. Creatinine Clearance 0 mL/min (70-130); Calcium 8.2 mg/dL (7.8-10.44); Carbon Dioxide 27 mmol/L (23-31); Chloride 98 mmol/L (98-107); Estimated GFR-MDRD 54; Globulin 2.7 g/dL (2.4-3.5); Glucose 175 mg/dL (83-110); Protein, Total 5.5 g/dL (5.8-8.1); Sodium 138 mmol/L (136-145)
[2018-08-03] MEDS ORDERED: Piperacillin/Tazobactam 4.5 GM VIAL ONE (15:52)
[2018-08-03 18:59] VITALS: BMI 28.0
[2018-08-03 19:20] LABS: Lactic Acid 3.1 mmol/L (0.5-2.2)
[2018-08-03 19:28] LABS: Troponin I 0.133 ng/mL (< 0.028)
[2018-08-03] MEDS ORDERED: Acetaminophen 325 MG TAB PO PRN (21:24)
[2018-08-03 22:14] LABS: Troponin I 0.109 ng/mL (< 0.028)
[2018-08-03] MEDS: Piperacillin/Tazobactam 3.375 GM in Sodium Chloride 0.9% 100 ML IVPB SCH (22:22)
[2018-08-03] MEDS: Albumin 25% 25 GM/100 ML BOT IVPB SCH (22:58)
--- NOTE | 2018-08-03 23:07 | RAD ---
LEFT HIP TWO VIEW: 08/03/18 HISTORY: Fall. Pain. COMPARISON: None. FINDINGS: There is no acute displaced fracture or malalignment. Mild acetabular osteophyte formation. Femoral h ead and neck are intact. Obturator ring is intact. IMPRESSION: No acute fracture or malalignment. POS: [facility]
--- NOTE | 2018-08-03 23:09 | RAD ---
RIGHT HIP TWO VIEWS: 08/03/18 HISTORY: Pain. COMPARISON: None. FINDINGS: No acute fracture or malalignment. There are synovial pits of the right femoral head/neck junction. S mall acetabular osteophytes. There appears to be a contusion of the right lateral thigh. Moderate vas cular calcifications. Obturator ring is intact. IMPRESSION: No acute abnormality. POS: [facility]
--- NOTE | 2018-08-03 23:59 | HP ---
PRIMARY CARE PROVIDER: Dr. Au CHIEF COMPLAINT: Low blood pressure, weakness, and swelling. HISTORY OF PRESENT ILLNESS: This is an 88-year-old male, last hospitalized here from July 19 through July 23, discharged to home. That hospitalization was for anasarca, hyponatremia and cellulitis; and the patient has a history of atrial fibrillation, on full anticoagulation; dyslipidemia; hypothyroidism; type 2 diabetes; and history of stroke, who presents to the emergency room with the above complaint. Of note, all history is obtained from the emergency room physician, family is not here with the patient currently and the patient is unable to provide much information. The patient notes that he is feeling weak and drowsy, family notes that he has had a low appetite, not taking much p.o. By report, the patient had difficulty getting up a chair today and has had multiple falls and ended up on the floor. The patient did complain of pain earlier as the right hip, currently as the left hip, rated a 5/ 10 in intensity. The patient also noted to be very drowsy, and have a change in his mental status. In the emergency room, the patient evaluated, found to be hypothermic by rectal temperature, meeting sepsis criteria and he was given vancomycin 1 g, Zosyn 4.5 g, and hospitalist called for admission. PAST MEDICAL HISTORY: Reviewed from his last history and physical dated 2018, 1. HISTORY OF RECENT BACTEREMIA FROM May 2018, lower extremity cellulitis, hyponatremia, hospitalized here last month. 2. Chronic paroxysmal atrial fibrillation, on full anticoagulation. 3. Chronic lower extremity edema. 4. Type 2 diabetes. 5. History of TIA and stroke. 6. History of thyroid mass with benign nodule. 7. History of aortic stenosis, status post TAVR. 8. Hyponatremia. PAST SURGICAL HISTORY: 1. TAVR. 2. thyroid nodule biopsy. 3. Right eye surgery. ALLERGIES: NONE. SOCIAL HISTORY: The patient is living at home. Family members support and family members trade-off with his care. No reported history of drug or alcohol abuse. FAMILY HISTORY: Negative for significant coronary artery disease or stroke. MEDICATIONS: Home medications are reconciled with his discharge summary, the patient is unable to provide: 1. Tylenol 650 mg every 4 hours as needed. 2. Eliquis 5 mg b.i.d. 3. Lasix 80 mg in the morning and 40 mg in the afternoon. 4. Cefdinir 300 mg b.i.d., no end date on the discharge summary. 5. Metformin 500 mg b.i.d. 6. Rosuvastatin 40 mg at bedtime. 7. Multaq 400 mg b.i.d. 8. Folic acid 1 mg daily. 9. Liothyronine 25 mcg daily. 10. Potassium chloride 20 mEq daily. REVIEW OF SYSTEMS: Not obtainable from the patient, other than hip pain, and low energy. PHYSICAL EXAMINATION: VITAL SIGNS: Blood pressure 104/57, temperature 96.2, pulse 95, respirations 16 , and saturations 95% on room air. GENERAL: The patient does awaken to voice, he will speak in a slowed voice. Answers questions appropriately. Some of his speech is a little garbled. HEENT: Pupils are equal and round. Oral mucosa is pink and moist. NECK: Supple. Nontender. LYMPHATICS: No palpable cervical or supraclavicular lymphadenopathy. LUNGS: Clear to auscultation; however, decreased breath sounds at the bases. HEART: Normal S1 and S2. No significant murmurs. ABDOMEN: Soft with present bowel sounds. Nontender and nondistended. MUSCULOSKELETAL: His hips, no tenderness to palpation. EXTREMITIES: He has 2 to 3+ pitting edema bilateral throughout his legs and feet, trace pitting edema in his arms and hands. SKIN: Large area of ecchymosis on his upper left chest and flank, ecchymosis along his left arm, areas of very mild erythema of his right lower extremity, these were outlined. They are not indurated; however, there is pitting edema. No tenderness to palpation, the patient also has a stage II sacral decubitus ulcer and skin tears along his arms. PSYCH: Unable to adequately assess. The patient falls asleep in between questions, and is sleeping through a blood draw. DIAGNOSTIC DATA: EKG is personally reviewed. Low voltage, atrial fibrillation, abnormal R-wave progression, no ST changes. Chest x-ray is personally reviewed. Hypoinflated exam with bibasilar pleural parenchymal opacities. Recommend followup. LABORATORY DATA: Reviewed. CBC; 13.2, 9.3, 30.6, and 154, of note, his hemoglobin has ranged from 8.8 to 11.2 over the past 2 months. Chemistry; 138, 4.0, 98, 27, 59, 1.26, and 175. Lactic acid 3.9 and 3.1. LFTs are normal. Troponin 0.144 and 0.133. BNP 3671. Total protein 5.5 and albumin 2.8. IMPRESSION: 1. Sepsis with elevated lactate, leukocytosis with left shift, low blood pressure, hypothermia with the source concerning for his chest given the abnormal chest x-ray. Other considerations are skin infection as the patient was treated for lower extremity cellulitis recently with hospitalization here. 2. Acute kidney injury based on the doubling of his creatinine since his last admission, likely secondary to hypervolemic state and hypoalbuminemia. 3. Elevated troponin, significantly elevated BNP, volume overloaded in the context of known paroxysmal atrial fibrillation, on full anticoagulation and antiarrhythmic therapy. 4. Encephalopathy and weakness, likely secondary to above. 5. Hip pain, status post fall with ecchymosis of his left chest. 6. Anemia, appears stable. 7. Hypothyroidism, with last TSH checked a month ago and normal. 8. Sacral decubitus ulcer. 9. Type 2 diabetes, unknown control. 10. Dyslipidemia. 11. History of stroke and transient ischemic attack. 12. History of TAVR secondary to aortic stenosis. PLAN: 1. Admission to the hospital. 2. Continuing antibiotics to cover for sepsis. Monitoring cultures. 3. Consultation with Nephrology given the acute kidney injury, starting IV albumin to try to mobilize that extravascular fluid to see if this improves renal function. Hold on IV lasix - reassess in AM. as well as the generalized edema. Hold on IVF due to concern for volume overload already and worsening this. 4. Cardiology consultation. We will repeat echocardiogram given that significantly elevated BNP and monitor on telemetry. Continuing his antiarrhythmic and full anticoagulation for known paroxysmal atrial fibrillation. We will also continue his statin therapy. 5. We will check iron and ferritin levels for the anemia, we will check ammonia level for the encephalopathy as well as a CT of the brain, and check TSH, free T4 and T3 levels. Repeat lactate level in AM. 6. Dietitian consult given the low appetite, low protein state. PT and OT as well to evaluate weakness. Will also place palliative care consult, as per notes pt has had a significant decline in health over the past few months - goals of care, family support. 7. Wound Care consult for the sacral decubitus ulcer and skin tears. 8. X-ray of the hips given the reported pain. 9. Following his white blood cell count and response to therapy. 10. DVT prophylaxis, not applicable as the patient is fully anticoagulated with Eliquis. 11. GI prophylaxis, not indicated. 12. Code status per his last hospital stay was full. We will continue that, will need to be confirmed with the surrogate decision maker - daughter per last H&P. 13. The patient is at high risk given age, comorbidities, and current presentation. 14. Reviewed the plan of care with the patient's grandson. No questions or further needs at the end of evaluation. Job ID: [id number] MTDD
[2018-08-04] MEDS: Piperacillin/Tazobactam 3.375 GM in Sodium Chloride 0.9% 100 ML IVPB SCH ×4 (03:30→22:34)
[2018-08-04] MEDS: Albumin 25% 25 GM/100 ML BOT IVPB SCH ×4 (03:51→22:38)
[2018-08-04 04:47] LABS: Lactic Acid 2.5 mmol/L (0.5-2.2)
[2018-08-04 04:48] LABS: Anion Gap 18 mmol/L (10-20); BUN (Urea Nitrogen) 56 mg/dL (8.4-25.7); Calc. Creatinine Clearance 48 mL/min (70-130); Calcium 8.4 mg/dL (7.8-10.44); Carbon Dioxide 27 mmol/L (23-31); Chloride 99 mmol/L (98-107); Estimated GFR-MDRD 54; Glucose 152 mg/dL (83-110); Iron 21 ug/dL (65-175); Sodium 140 mmol/L (136-145)
[2018-08-04 05:00] LABS: #Lymphocytes 0.5 thou/uL (1.20-3.40); #Monocytes 0.6 thou/uL (0.11-0.59); #Neutrophils 11.8 thou/uL (1.40-6.50); %Eosinophils 0.3 % (0.0-10.0); %Lymphocytes 3.8 % (21.0-51.0); %Monocytes 4.3 % (0.0-10.0); %Neutrophils 91.6 % (42.0-75.0); Band 2 % (5-11); Hemoglobin 9.3 g/dL (14.0-18.0); Lymphocytes 4 % (21-51); MDiff Complete? YES; Mean Corpuscular HGB CONC 30.3 g/dL (32.0-36.0); Mean Corpuscular Volume 92.5 fL (78.0-98.0); Mean Platelet Volume 9.7 fL (7.4-10.4); Monocytes 7 % (0-10); Neutrophil 86 % (42-75); Ovalocytes SLIGHT = 2-5 cells (100X) (0-1/hpf); Platelet Count 128 thou/uL (130-400); Platelet Morphology Comment Appears Decreased; RBC Distribution Width 19.1 % (11.5-14.5); Reactive Lymphocytes 1 % (0-10); Red Blood Cell (RBC) Count 3.33 mill/uL (4.70-6.10); Target Cells SLIGHT = 2-5 cells (100X) (0-1/hpf); White Blood Cell (WBC) Count 12.9 thou/uL (4.8-10.8)
[2018-08-04 05:08] LABS: Ferritin 181.56 ng/mL (22-322); Free T4 (Free Thyroxine) 0.62 ng/dL (0.70-1.48); Thyroid Stimulating Hormone 0.5667 uIU/mL (0.35-4.94)
[2018-08-04] MEDS ORDERED: hydrALAZINE 20 MG/ML VIAL SLOW IVP PRN (07:43)
[2018-08-04] MEDS ORDERED: Cepastat Lozenges 1 LOZ PO PRN (07:43)
[2018-08-04] MEDS ORDERED: Artificial Tears 18 DROP/0.9 ML EA EYE PRN (07:43)
[2018-08-04] MEDS ORDERED: HYDROcodone/Acetaminophen 5/325 mg Tablet PO PRN (07:43)
[2018-08-04] MEDS ORDERED: Loperamide HCl 2 MG CAP PO PRN (07:43)
[2018-08-04] MEDS ORDERED: Eucerin (Mineral Oil/Petrolatum,White) 30 gm Jar TOP PRN (07:43)
[2018-08-04] MEDS ORDERED: Calcium Carbonate 500 MG ChewTAB PO PRN (07:43)
[2018-08-04] MEDS ORDERED: Bisacodyl 10 MG SUPP PR PRN (07:43)
[2018-08-04] MEDS ORDERED: Zolpidem Tartrate 5 MG TAB PO PRN (07:43)
[2018-08-04] MEDS ORDERED: Sodium Chloride 0.65% Nasal 44 ML BOT EA NARE PRN (07:43)
[2018-08-04] MEDS ORDERED: Diabetic Tussin 200 MG/10 ML UDCUP PO PRN (07:43)
[2018-08-04] MEDS ORDERED: Acetaminophen 500 MG TAB PO PRN ×2 (07:43→10:41)
[2018-08-04] MEDS ORDERED: Loratadine 10 MG TAB PO PRN (07:43)
[2018-08-04] MEDS ORDERED: Senokot S 8.6-50 MG TAB PO PRN (07:43)
[2018-08-04] MEDS ORDERED: Metoclopramide HCl 10 MG/2 ML VIAL IVP PRN (07:44)
[2018-08-04] MEDS ORDERED: Vancomycin HCl 500 MG in Sodium Chloride 0.9% 100 ML IVPB SCH (09:00)
[2018-08-04] MEDS ORDERED: Prevnar 13-Val Conj/PF 0.5 ML SYRINGE IM ONE (09:00)
[2018-08-04] MEDS: Saccharomyces boulardii 250 MG CAP PO SCH (09:14)
[2018-08-04] MEDS: Apixaban 5 MG TAB PO SCH ×2 (09:14→22:36)
[2018-08-04] MEDS: Dronedarone HCl 400 MG TAB PO SCH ×2 (09:14→18:02)
[2018-08-04] MEDS: Liothyronine Sodium 25 MCG TAB PO SCH (09:15)
[2018-08-04] MEDS ORDERED: Acetaminophen 325 MG TAB PO PRN (10:40)
[2018-08-04] MEDS ORDERED: Acetaminophen 325 MG TAB PO SCH (10:45)
[2018-08-04] MEDS ORDERED: Midodrine HCl 5 MG TAB PO SCH (12:45)
--- NOTE | 2018-08-04 13:03 | PDOC.PN ---
- Subjective Encounter Start Date: 08/04/18 Encounter Start Time: 08:00 -: old records requested/rev Patient seen and examined. No new complaints. No overnight events - Objective Resuscitation Status - Order Detail: 08/03/18 21:24 Resuscitation Status Routine Resuscitation Status: FULL: Full Resuscitation MAR Reviewed: Yes Vital Signs & Weight: Vital Signs (12 hours) Temp Pulse Resp BP Pulse Ox 08/04/18 08:58 97.6 F 103 H 20 85/54 L 94 L 08/04/18 04:00 97.3 F L 96 20 99/63 92 L Weight Admit Weight 179 lb Weight 179 lb 3 oz Result Diagrams: 08/04/18 04:23 08/04/18 04:23 Radiology Reviewed by me: Yes EKG Reviewed by me: Yes (nsr) Phys Exam - Physical Examination Constitutional: NAD HEENT: PERRLA, moist MMs, sclera anicteric Neck: no JVD, supple Respiratory: no wheezing, no rales, no rhonchi Cardiovascular: RRR, no significant murmur, no rub Gastrointestinal: soft, non-tender, positive bowel sounds Musculoskeletal: pulses present, edema present Neurological: non-focal, normal sensation Lymphatic: no nodes Psychiatric: normal affect, A&O x 3 Skin: no rash, normal turgor Dx/Plan (1) Encephalopathy acute Code(s): G93.40 - ENCEPHALOPATHY, UNSPECIFIED Status: Resolved (2) Demand ischemia Code(s): I24.8 - OTHER FORMS OF ACUTE ISCHEMIC HEART DISEASE Status: Acute (3) Fall Code(s): W19.XXXA - UNSPECIFIED FALL, INITIAL ENCOUNTER Status: Acute (4) Hip pain Code(s): M25.559 - PAIN IN UNSPECIFIED HIP Status: Acute (5) Lactic acidosis Code(s): E87.2 - ACIDOSIS Status: Acute (6) Sepsis Code(s): A41.9 - SEPSIS, UNSPECIFIED ORGANISM Status: Suspected (7) Thrombocytopenia Code(s): D69.6 - THROMBOCYTOPENIA, UNSPECIFIED Status: Acute (8) Anemia, normocytic normochromic Code(s): D64.9 - ANEMIA, UNSPECIFIED Status: Chronic (9) Chronic anticoagulation Code(s): Z79.01 - ANTISQUEAK APPLIER (CURRENT) USE OF ANTICOAGULANTS Status: Chronic Comment: with frank (10) Diabetes type 2, controlled Code(s): E11.9 - TYPE 2 DIABETES MELLITUS WITHOUT COMPLICATIONS Status: Chronic Qualifiers: (11) H/O: CVA (cerebrovascular accident) Code(s): Z86.73 - PRSNL HX OF TIA (TIA), AND CEREB INFRC W/O RESID DEFICITS Status: Chronic (12) Hypothyroidism Code(s): E03.9 - HYPOTHYROIDISM, UNSPECIFIED Status: Chronic (13) PAF (paroxysmal atrial fibrillation) Code(s): I48.0 - PAROXYSMAL ATRIAL FIBRILLATION Status: Chronic Comment: on Multaq (14) Status post transcatheter aortic valve replacement Code(s): Z95.2 - PRESENCE OF PROSTHETIC HEART VALVE Status: Chronic Comment : done in July 2017 - Plan cont current plan of care, plan discussed w/ family, continue antibiotics * doubt he has any sepsis * will continue to follow culture and if negative, will dc antibiotics * his etiology of anasarca is not clear, but will re check urine protein and creatinine ratio * nephrology following * medication reviewed as below * symptomatic treatment * discussed with daughter. Review of Systems - Review of Systems Constitutional: weakness. negative: fever, chills, sweats, malaise, other ENT: negative: Ear Pain, Ear Discharge, Nose Pain, Nose Discharge, Nose Congestion, Mouth Pain, Mouth Swelling, Throat Pain, Throat Swelling, Other Respiratory: negative: Cough, Dry, Shortness of Breath, Hemoptysis, SOB with Excertion, Pleuritic Pain, Sputum, Wheezing Cardiovascular: edema. negative: chest pain, palpitations, orthopnea, paroxysmal nocturnal dyspnea, light headedness, other Gastrointestinal: negative: Nausea, Vomiting, Abdominal Pain, Diarrhea, Constipation, Melena, Hematochezia, Other Genitourinary: negative: Dysuria, Frequency, Incontinence, Hematuria, Retention , Other Musculoskeletal: negative: Neck Pain, Shoulder Pain, Arm Pain, Back Pain, Hand Pain, Leg Pain, Foot Pain, Other Skin: negative: Rash, Lesions, [place], Bruising, Other - Medications/Allergies Allergies/Adverse Reactions: Allergies Allergy/AdvReac Type Severity Reaction Status Date / Time No Known Allergies Allergy Verified 08/03/18 20:32 Medications: Current Medications Acetaminophen (Tylenol) 1,000 mg PO Q8H PRN PRN Reason: Headache/Fever or Pain Hydrocodone Bitart/Acetaminophen ([place] 5/325) 1 tab PO Q4H PRN PRN Reason: Moderate Pain (4-6) Albumin Human (Albumin 25%) 25 gm IVPB Q6H [facility] Stop: 08/04/18 22:01 Last Admin: 08/04/18 10:43 Dose: 25 gm Apixaban (Eliquis) 5 mg PO BID [facility] Last Admin: 08/04/18 09:14 Dose: 5 mg Artificial Tears (Tears Naturale) 2 drop EA EYE PRN PRN PRN Reason: Dry Eyes Bisacodyl (Dulcolax) 10 mg [place] DAILYPRN PRN PRN Reason: Constipation Calcium Carbonate (Tums) 1,000 mg PO Q4H PRN PRN Reason: Heartburn or Indigestion Dronedarone (Multaq) 400 mg PO BID-[facility] Last Admin: 08/04/18 09:14 Dose: 400 mg Guaifenesin (Robitussin Sf) 200 mg PO Q4H PRN PRN Reason: Cough Hydralazine HCl (Apresoline) 10 mg SLOW IVP Q4H PRN PRN Reason: SBP > 180 and HR < 70 Piperacillin Sod/Tazobactam (Sod 3.375 gm/ Sodium Chloride) 100 mls @ 200 mls/ hr IVPB 0400,1000,1600,2200 [facility] Last Admin: 08/04/18 09:19 Dose: 100 mls Vancomycin HCl 1.25 gm/ Sodium (Chloride) 250 mls @ 166.667 mls/hr IVPB 1700 [facility] Liothyronine Sodium (Cytomel) 25 mcg PO DAILY [facility] Last Admin: 08/04/18 09:15 Dose: 25 mcg Loperamide HCl (Imodium) 2 mg PO PRN PRN PRN Reason: Diarrhea/Loose Stools Loratadine (Claritin) 10 mg PO DAILYPRN PRN PRN Reason: Sinus Symptoms Metoclopramide HCl (Reglan) 10 mg IVP Q6H PRN PRN Reason: Nausea/Vomiting Last Admin: 08/04/18 11:07 Dose: 10 mg Midodrine (Proamatine) 5 mg PO NOW [facility] Stop: 08/04/18 14:00 Last Admin: 08/04/18 12:36 Dose: 5 mg Mineral Oil/White Petrolatum (Eucerin Cream) 0 gm TOP BIDPRN PRN PRN Reason: Dry Skin Miscellaneous Medication (Pharmacy To Dose) 1 each IVPB ONE PRN PRN Reason: Pharmacy to dose Stop: 08/13/18 21:33 Rosuvastatin Calcium (Crestor) 40 mg PO [facility] Saccharomyces Boulardii (Florastor) 250 mg PO DAILY [facility] Last Admin: 08/04/18 09:14 Dose: 250 mg Senna/Docusate Sodium (Senokot S) 2 tab PO BID PRN PRN Reason: Constipation Sodium Chloride (Flush - Normal Saline) 10 ml IVF Q12HR [facility] Last Admin: 08/04/18 09:19 Dose: 10 ml Sodium Chloride (Flush - Normal Saline) 10 ml IVF PRN PRN PRN Reason: Saline Flush Last Admin: 08/04/18 03:30 Dose: 10 ml Sodium Chloride ([place] Nasal [place] 0.65%) 0 ml EA NARE QIDPRN PRN PRN Reason: Nasal Congestion Throat Lozenges (Cepastat Lozenges) 1 kleber PO Q2H PRN PRN Reason: Sore Throat Zolpidem Tartrate (Ambien) 5 mg PO HSPRN PRN PRN Reason: Insomnia
[2018-08-04] MEDS ORDERED: ALPRAZolam 0.25 MG TAB PO SCH (14:45)
[2018-08-04] MEDS ORDERED: Dextrose 50% Abboject 50 ML SYRINGE SLOW IVP PRN (14:55)
[2018-08-04] MEDS ORDERED: Dextrose 5% in Water 1,000 ML IV PRN (14:55)
[2018-08-04] MEDS ORDERED: HumaLOG 300 UNITS/3 ML VIAL SC PRN (14:55)
[2018-08-04] MEDS: HumaLOG 300 UNITS/3 ML VIAL SC PRN (16:19)
[2018-08-04] MEDS ORDERED: Vancomycin HCl 1.25 GM in Sodium Chloride 0.9% 250 ML 250 ML IVPB SCH ×2 (17:00→21:00)
[2018-08-04] MEDS ORDERED: Norepinephrine 8 MG/0.9% NS 250 ML ONE (18:41)
[2018-08-04 18:50] VITALS: BP 78/49
[2018-08-04] MEDS ORDERED: DOBUTamine 500 mg/250 ml 250 ML IVPB SCH (19:30)
[2018-08-04 19:47] LABS: Anion Gap 24 mmol/L (10-20); BUN (Urea Nitrogen) 63 mg/dL (8.4-25.7); Calc. Creatinine Clearance 35 mL/min (70-130); Calcium 8.5 mg/dL (7.8-10.44); Carbon Dioxide 19 mmol/L (23-31); Chloride 100 mmol/L (98-107); Estimated GFR-MDRD 38; Glucose 210 mg/dL (83-110); Potassium 5.1 mmol/L (3.5-5.1); Sodium 138 mmol/L (136-145)
[2018-08-04 19:58] LABS: #Lymphocytes 0.7 thou/uL (1.20-3.40); #Neutrophils 11.2 thou/uL (1.40-6.50); %Basophils 0.1 % (0.0-1.0); %Eosinophils 0.1 % (0.0-10.0); %Lymphocytes 5.3 % (21.0-51.0); %Monocytes 7.5 % (0.0-10.0); %Neutrophils 87.1 % (42.0-75.0); Hemoglobin 8.4 g/dL (14.0-18.0); Mean Corpuscular HGB CONC 30.9 g/dL (32.0-36.0); Mean Corpuscular Hemoglobin 29.5 pg (27.0-31.0); Mean Corpuscular Volume 95.7 fL (78.0-98.0); Mean Platelet Volume 10.1 fL (7.4-10.4); Platelet Count 122 thou/uL (130-400); Red Blood Cell (RBC) Count 2.85 mill/uL (4.70-6.10); White Blood Cell (WBC) Count 13.1 thou/uL (4.8-10.8)
[2018-08-04 20:22] LABS: Lactic Acid 6.5 mmol/L (0.5-2.2)
[2018-08-04] MEDS ORDERED: Budesonide 0.5 MG/2 ML NEB ONE (21:04)
[2018-08-04] MEDS: Rosuvastatin 20 MG TAB PO SCH (22:23)
[2018-08-05] MEDS: HumaLOG 300 UNITS/3 ML VIAL SC PRN (00:42)
[2018-08-05] MEDS ORDERED: Norepinephrine 8 MG/250 ML BAG IVPB PRN (03:24)
[2018-08-05] MEDS: Piperacillin/Tazobactam 3.375 GM in Sodium Chloride 0.9% 100 ML IVPB SCH (06:46)
[2018-08-05 07:27] LABS: Lactic Acid 2.7 mmol/L (0.5-2.2)
[2018-08-05 07:32] LABS: ALT (SGPT) 487 U/L (8-55); AST (SGOT) 956 U/L (5-34); Albumin 3.5 g/dL (3.4-4.8); Alkaline Phosphatase 690 U/L (40-150); Anion Gap 16 mmol/L (10-20); BUN (Urea Nitrogen) 72 mg/dL (8.4-25.7); Bilirubin, Total 2.2 mg/dL (0.2-1.2); Calc. Creatinine Clearance 31 mL/min (70-130); Calcium 8.5 mg/dL (7.8-10.44); Carbon Dioxide 29 mmol/L (23-31); Chloride 100 mmol/L (98-107); Estimated GFR-MDRD 32; Glucose 70 mg/dL (83-110); Potassium 4.3 mmol/L (3.5-5.1); Protein, Total 5.5 g/dL (5.8-8.1); Sodium 141 mmol/L (136-145)
[2018-08-05 07:33] LABS: #Basophils 0.1 thou/uL (0.0-0.2); #Lymphocytes 0.5 thou/uL (1.20-3.40); #Monocytes 0.6 thou/uL (0.11-0.59); #Neutrophils 10.3 thou/uL (1.40-6.50); %Basophils 0.5 % (0.0-1.0); %Eosinophils 0.1 % (0.0-10.0); %Lymphocytes 4.4 % (21.0-51.0); %Monocytes 5.5 % (0.0-10.0); %Neutrophils 89.4 % (42.0-75.0); Hemoglobin 7.5 g/dL (14.0-18.0); Mean Corpuscular HGB CONC 31.2 g/dL (32.0-36.0); Mean Corpuscular Hemoglobin 29.1 pg (27.0-31.0); Mean Corpuscular Volume 93.4 fL (78.0-98.0); Mean Platelet Volume 9.9 fL (7.4-10.4); Platelet Count 106 thou/uL (130-400); RBC Distribution Width 18.9 % (11.5-14.5); Red Blood Cell (RBC) Count 2.56 mill/uL (4.70-6.10); White Blood Cell (WBC) Count 11.5 thou/uL (4.8-10.8)
[2018-08-05] MEDS ORDERED: Apixaban 5 MG TAB PO SCH (07:50)
[2018-08-05] MEDS: Apixaban 2.5 MG TAB PO SCH ×2 (10:00→23:44)
--- NOTE | 2018-08-05 10:11 | CON ---
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 He was brought in last night with symptoms of blood pressure, generalized swelling. His ejection fraction is 25%. He was in the ICU transfer last night and he became hypotensive. His son is at the bedside whom I have known for years. This states that he is a DNR, comfort care. They are waiting for additional family members, two sisters to arrive. He opens his eyes, awake, responsive. Denies any chest pain. PAST MEDICAL HISTORY: Extensive past medical history is well outlined, pertinent for atrial fibrillation, CHF, anasarca, diabetes, previous CVA. PAST SURGICAL HISTORY: Previous surgeries including eye surgery, TAVR, aortic stenosis. HOME MEDICINES: Included: 1. Metformin 500 twice a day. 2. Ambien 1 a day. 3. Rosuvastatin 40. 4. Potassium 20. 5. . 6. Cytomel 25. 7. Haldol p.r.n. 8. Lasix 40 b.i.d. 9. Multaq 400 twice a day. 10. Eliquis 5 twice a day. 11. He is now restarted on Dobutrex Levophed some place. PHYSICAL EXAMINATION: VITAL SIGNS: As noted, his blood pressure this morning was 109/71, his heart rate was 90, respiratory rate was 15, sats 99%. GENERAL: Awake, generalized edema 2+. CHEST: Bilateral crackles. CARDIAC: Normal S1, S2. No gallops. ABDOMEN: Soft. NEUROLOGIC: He is awake, responsive. LABORATORY DATA: White count 79312, H and H is 7 and 23, platelet count 106. His creatinine is 1.9, BUN is 72. X-ray showed bilateral pleural effusion. Lactic acid is 2.7. Liver function elevated, AST is 956. IMPRESSION: 1. Multiorgan failure. 2. Congestive cardiomyopathy. 3. Abnormal liver profile. 4. Renal failure. 5. Advanced age. 6. DNR. 7. Anemia. PLAN: As per the family's wishes, comfort care. I see no reason to start any Dobutrex. Once they arrived, he can probably be transferred out of the ICU. Consultation note, 70 minutes, 50% direct patient care. Job ID: [id number]
--- NOTE | 2018-08-05 10:34 | PDOC.PN ---
- Subjective Encounter Start Date: 08/05/18 Encounter Start Time: 09:00 this morning pt is lethargic, his LFT abdnormal, he is off levophed and dobutrex - Objective Resuscitation Status - Order Detail: 08/04/18 17:28 Resuscitation Status Routine Resuscitation Status: DNAR: NO Resuscitation Discussed with: discussed with daughter OLIVE Reviewed: Yes Vital Signs & Weight: Vital Signs (12 hours) Temp Pulse Ox 08/05/18 08:00 97.4 F L 08/05/18 05:00 97.6 F 08/05/18 02:00 96.9 F L 08/05/18 00:00 97.5 F L 08/04/18 23:30 100 Weight Admit Weight 179 lb Weight 179 lb 3 oz Most Recent Monitor Data Heart Rate from ECG 99 NIBP 97/74 NIBP BP-Mean 81 Respiration from ECG 21 SpO2 99 I&O: 08/04/18 08/05/18 08/06/18 06:59 06:59 06:59 Intake Total 777 Output Total 0 Balance 777 Result Diagrams: 08/05/18 06:34 08/05/18 06:34 Additional Labs: Accuchecks 08/04/18 08/04/18 14:53 10:46 POC Glucose 305 H 281 H EKG Reviewed by me: Yes (nsr) Phys Exam - Physical Examination Constitutional: NAD very weak HEENT: PERRLA, moist MMs Neck: no nodes, supple Respiratory: no wheezing, no rhonchi reduced air entry Cardiovascular: irregular SM+ Gastrointestinal: soft, non-tender, no distention, positive bowel sounds Musculoskeletal: pulses present, edema present Neurological: non-focal Lymphatic: no nodes Psychiatric: normal affect Skin: no rash, normal turgor Dx/Plan (1) Encephalopathy acute Code(s): G93.40 - ENCEPHALOPATHY, UNSPECIFIED Status: Acute Comment: metabolic encephalopathy (2) Demand ischemia Code(s): I24.8 - OTHER FORMS OF ACUTE ISCHEMIC HEART DISEASE Status: Acute (3) Fall Code(s): W19.XXXA - UNSPECIFIED FALL, INITIAL ENCOUNTER Status: Acute (4) Hip pain Code(s): M25.559 - PAIN IN UNSPECIFIED HIP Status: Acute (5) Lactic acidosis Code(s): E87.2 - ACIDOSIS Status: Acute (6) Sepsis Code(s): A41.9 - SEPSIS, UNSPECIFIED ORGANISM Status: Ruled-out (7) Thrombocytopenia Code(s): D69.6 - THROMBOCYTOPENIA, UNSPECIFIED Status: Acute (8) Anemia, normocytic normochromic Code(s): D64.9 - ANEMIA, UNSPECIFIED Status: Chronic (9) Chronic anticoagulation Code(s): Z79.01 - FPC (CURRENT) USE OF ANTICOAGULANTS Status: Chronic Comment: with frank (10) Diabetes type 2, controlled Code(s): E11.9 - TYPE 2 DIABETES MELLITUS WITHOUT COMPLICATIONS Status: Chronic Qualifiers: (11) H/O: CVA (cerebrovascular accident) Code(s): Z86.73 - PRSNL HX OF TIA (TIA), AND CEREB INFRC W/O RESID DEFICITS Status: Chronic (12) Hypothyroidism Code(s): E03.9 - HYPOTHYROIDISM, UNSPECIFIED Status: Chronic (13) PAF (paroxysmal atrial fibrillation) Code(s): I48.0 - PAROXYSMAL ATRIAL FIBRILLATION Status: Chronic Comment: on Multaq (14) Status post transcatheter aortic valve replacement Code(s): Z95.2 - PRESENCE OF PROSTHETIC HEART VALVE Status: Chronic Comment : done in July 2017 (15) Acute kidney failure Status: Acute (16) Acute systolic heart failure, ACC/AHA stage C Code(s): I50.21 - ACUTE SYSTOLIC (CONGESTIVE) HEART FAILURE Status: Acute (17) Cardiogenic shock Code(s): R57.0 - CARDIOGENIC SHOCK Status: Acute (18) Severe mitral regurgitation Code(s): I34.0 - NONRHEUMATIC MITRAL (VALVE) INSUFFICIENCY Status: Acute (19) Shock liver Code(s): K72.00 - ACUTE AND SUBACUTE HEPATIC FAILURE WITHOUT COMA Status: Acute - Plan cont current plan of care * will DC vancomycin and zosyn as no evidence of infection * dobutamine will defer to cardio/pulmonary * medication reviewed as below * symptomatic treatment * prognosis is very poor * pt is now DNR * palliative care on case * monitor labs. * should be hospice care if family ok Review of Systems - Review of Systems Other: not reliable due to encephalopathy - Medications/Allergies Allergies/Adverse Reactions: Allergies Allergy/AdvReac Type Severity Reaction Status Date / Time Sulfa (Sulfonamide Allergy Rash Verified 08/04/18 21:34 Antibiotics) Medications: Current Medications Hydrocodone Bitart/Acetaminophen ([place] 5/325) 1 tab PO Q4H PRN PRN Reason: Moderate Pain (4-6) Apixaban (Eliquis) 2.5 mg PO BID [facility] Last Admin: 08/05/18 10:00 Dose: 2.5 mg Artificial Tears (Tears Naturale) 2 drop EA EYE PRN PRN PRN Reason: Dry Eyes Bisacodyl (Dulcolax) 10 mg [place] DAILYPRN PRN PRN Reason: Constipation Calcium Carbonate (Tums) 1,000 mg PO Q4H PRN PRN Reason: Heartburn or Indigestion Dextrose/Water (Dextrose 50%) 25 gm SLOW IVP PRN PRN PRN Reason: Hypoglycemia Glucagon (Glucagon) 1 mg IM PRN PRN PRN Reason: Hypoglycemia Guaifenesin (Robitussin Sf) 200 mg PO Q4H PRN PRN Reason: Cough Hydralazine HCl (Apresoline) 10 mg SLOW IVP Q4H PRN PRN Reason: SBP > 180 and HR < 70 Dextrose/Water (D5w) 1,000 mls @ 0 mls/hr IV .Q0M PRN PRN Reason: Hypoglycemia Dobutamine HCl/Dextrose (Dobutamine 500 Mg/250 Ml) 250 mls @ 0 mls/hr IVPB INF [facility] Norepinephrine Bitartrate (Levophed) 250 mls @ 0 mls/hr IVPB INF PRN; Protocol PRN Reason: Blood Pressure Insulin Human Lispro (Humalog) 0 units SC .MODERATE SLIDING SC PRN PRN Reason: Moderate Correctional Scale Last Admin: 08/05/18 00:42 Dose: 4 unit Insulin Human Lispro (Humalog) 0 units SC .BEDTIME SLIDING SC PRN PRN Reason: Bedtime Correctional Scale Liothyronine Sodium (Cytomel) 25 mcg PO DAILY [facility] Last Admin: 08/04/18 09:15 Dose: 25 mcg Loperamide HCl (Imodium) 2 mg PO PRN PRN PRN Reason: Diarrhea/Loose Stools Loratadine (Claritin) 10 mg PO DAILYPRN PRN PRN Reason: Sinus Symptoms Metoclopramide HCl (Reglan) 10 mg IVP Q6H PRN PRN Reason: Nausea/Vomiting Last Admin: 08/04/18 11:07 Dose: 10 mg Mineral Oil/White Petrolatum (Eucerin Cream) 0 gm TOP BIDPRN PRN PRN Reason: Dry Skin Miscellaneous Medication (Pharmacy To Dose) 1 each IVPB ONE PRN PRN Reason: Pharmacy to dose Stop: 08/13/18 21:33 Rosuvastatin Calcium (Crestor) 40 mg PO HS [facility] Last Admin: 08/04/18 22:23 Dose: Not Given Saccharomyces Boulardii (Florastor) 250 mg PO DAILY [facility] Last Admin: 08/04/18 09:14 Dose: 250 mg Senna/Docusate Sodium (Senokot S) 2 tab PO BID PRN PRN Reason: Constipation Sodium Chloride (Flush - Normal Saline) 10 ml IVF Q12HR [facility] Last Admin: 08/05/18 06:46 Dose: Not Given Sodium Chloride (Flush - Normal Saline) 10 ml IVF PRN PRN PRN Reason: Saline Flush Last Admin: 08/04/18 03:30 Dose: 10 ml Sodium Chloride ([place] Nasal [place] 0.65%) 0 ml EA NARE QIDPRN PRN PRN Reason: Nasal Congestion Throat Lozenges (Cepastat Lozenges) 1 kleber PO Q2H PRN PRN Reason: Sore Throat Zolpidem Tartrate (Ambien) 5 mg PO HSPRN PRN PRN Reason: Insomnia
[2018-08-05] MEDS: Saccharomyces boulardii 250 MG CAP PO SCH (10:39)
[2018-08-05] MEDS: Liothyronine Sodium 25 MCG TAB PO SCH (11:21)
--- NOTE | 2018-08-05 11:53 | PRG ---
DATE OF SERVICE: 08/05/2018 SUBJECTIVE: Patient was seen and examined at bedside and overnight events noted. Patient denies any shortness of breath or chest pain or palpitation. No history of nausea or vomiting or diarrhea or fever or chills or cramps. OBJECTIVE: GENERAL: This is an elderly white male, in no apparent distress. VITAL SIGNS: Temperature 97.4. Pulse 99. Respiratory rate 20. Blood pressure 105/85. HEENT: Atraumatic, normocephalic. Oral mucosa is moist NECK: Supple. CARDIOVASCULAR: S1, S2 heard. Rate and rhythm regular. RESPIRATORY: Clear to auscultation. GASTROINTESTINAL: Abdomen is soft. MUSCULOSKELETAL: No tenderness. No edema. DERMATOLOGIC: No skin rash. NEUROLOGIC: Alert and awake and oriented X3. No focal neurologic deficits. Moving all the extremities. PSYCHIATRIC: Mood and affect normal. LABORATORY DATA: Potassium is 4.3, BUN is 72, creatinine is 1.9. ASSESSMENT AND PLAN: 1. Acute kidney injury on chronic kidney disease, stage 3. Renal function is getting worse. Most likely cardiorenal syndrome. 2. Severe cardiomyopathy. 3. Hyponatremia, better. 4. Edema. 5. Hyperkalemia. 6. Lactic acidosis. 7. Hypoalbuminemia. 8. The patient is having severe hypoperfusion including renal perfusion. Cortisol level is stable. 9. Prognosis guarded. Agree with comfort measures if family wishes to. We will follow. Job ID: [id number]
[2018-08-05] MEDS ORDERED: DOBUTamine 500 mg/250 ml 250 ML IVPB SCH (18:30)
--- NOTE | 2018-08-05 19:06 | CON ---
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 Echocardiogram at that time revealed ejection fraction of 55% to 60% with evidence of diastolic dysfunction, mild mitral regurgitation. He had cellulitis and was discharged home on antibiotics. He then was admitted two days ago with increasing hypotension, increasing edema, and difficulty getting up into the chair. He has had multiple falls. Repeat echocardiogram revealed severe left ventricular dysfunction with now ejection fraction of 20% to 25% with moderately enlarged right ventricle, left atrial enlargement, severe mitral regurgitation. There is a bioprosthetic valve in the aortic position with moderate aortic stenosis. Attempts at diuresis have been unsuccessful. He is admitted to the unit, placed on dobutamine. PAST MEDICAL HISTORY: Bacteremia from lower extremity cellulitis in 05/2018. He has paroxysmal atrial fibrillation, is on Multaq and anticoagulated with Eliquis. He has diabetes, history of TIA and stroke. He has history of TAVR for aortic stenosis, and hyponatremia. PAST SURGICAL HISTORY: TAVR, thyroid nodule biopsy, right eye surgery. MEDICATIONS: At home include Eliquis 5 mg b.i.d., Lasix 80 mg q.a.m. and 40 mg q.p.m., metformin 500 b.i.d., rosuvastatin 40 at bedtime, Multaq 40 b.i.d., folic acid one daily, potassium chloride 20 mEq daily. ALLERGIES: NONE. SOCIAL HISTORY: He does not smoke or drink. REVIEW OF SYSTEMS: Unobtainable. PHYSICAL EXAMINATION: VITAL SIGNS: Blood pressure 89/59, pulse of 103, sinus rhythm. HEENT: PERRL. NECK: Supple. CHEST: Reveals bilateral crackles. CARDIOVASCULAR: S1 and S2 are normal. There is a 1-2/6 systolic ejection murmur. ABDOMEN: Normal bowel sounds without tenderness. EXTREMITIES: Revealed 2+ edema. LABORATORY DATA: EKG revealed sinus rhythm, premature atrial beats, low-voltage QRS, questionable inferior infarction. Hemoglobin 7.5, hematocrit 29.3, white count 11,500, and platelets 106,000. INR 2.5. Sodium 141, potassium 4.3, chloride 100, carbon dioxide 29, BUN 72, creatinine 1.99. He is not having any significant urine output. AST 956, ALT 487, whereas they were normal when he came in to the hospital. Cortisol is normal. TSH is normal. Troponin I is up to 0.144. BNP 3671.0. IMPRESSION: 1. Severe cardiomyopathy, now with ejection fraction of 20% 25%, whereas approximately 6 weeks ago, his ejection fraction was 55% to 60%. 2. Status post transcatheter aortic valve replacement. 3. History of atrial fibrillation, chronically on Multaq and Eliquis. He continues to maintain sinus rhythm. 4. Acute kidney injury. 5. Elevated troponin I probably secondary to demand ischemia. PLAN: Mr. Poole's prognosis is extremely poor with his severe left ventricular dysfunction, acute kidney injury, and inability to diurese. He has had profound worsening of his myocardial function over the last 6 weeks and in general there is not much to offer for this other than the dobutamine which has been started. However, I am doubtful that will significantly help. I agree with the family's approach for comfort care in this gentleman and his prognosis is extremely poor. Job ID: [id number]
[2018-08-05] MEDS: Rosuvastatin 20 MG TAB PO SCH (23:44)
[2018-08-06 00:40] VITALS: TEMP 97.6
--- NOTE | 2018-08-06 07:54 | DIS ---
DATE OF ADMISSION: 08/03/2018 DATE OF DISCHARGE: 08/06/2018 DATE OF : 08/06/2018. TIME: 2:16 a.m. PRIMARY CAUSE OF : Cardiogenic shock, shock liver, acute kidney failure, acute systolic congestive heart failure, and acute metabolic encephalopathy. CONTRIBUTING DIAGNOSES: Paroxysmal atrial fibrillation; severe mitral regurgitation; cardiomyopathy; diabetes, type 2; and hypothyroidism. HOSPITAL SUMMARY: An 88-year-old male, who has history of cardiomyopathy, who required previously transcatheter aortic valve replacement, who was admitted by Dr. Chanda River, please see her H and P for further details. This time, the patient was having generalized weakness and anasarca. During this admission, the patient had echocardiography, which showed EF of 20% to 25% with severe MR and moderate tricuspid regurgitation. The patient had hypoperfusion with hypotension. The patient was made DNR by family member. The patient was transferred to ICU, and he was treated with dobutamine and low norepinephrine drip. Cardiology, Pulmonology, and Nephrology were following during this hospital course. Last night, the patient had agonal breathing. He was DNR and he naturally at 2:16 a.m. Body was released for , and was pronounced. Job ID: [id number]
--- NOTE | 2018-08-06 09:29 | CON ---
DATE OF CONSULTATION: 08/04/2018 CONSULTING PHYSICIAN: Dr. River. REASON FOR CONSULTATION: Acute kidney injury. REASON FOR ADMISSION: Weakness. HISTORY OF PRESENT ILLNESS: An 88-year-old male with a history of bacteremia, lower extremity edema, type 2 diabetes, and history of thyroid mass, came to the hospital with above complaints. Nephrology consulted for acute kidney injury. His creatinine . The patient was recently admitted for hyponatremia, which is selective. Now, the patient was on Lasix at the hospital. There was also concern of sepsis and also elevated BNP. PAST MEDICAL HISTORY: Positive for recent bacteremia, atrial fibrillation, lower extremity edema, type 2 diabetes, TIA, history of thyroid mass, and aortic stenosis. PAST SURGICAL HISTORY: TAVR, thyroid nodule, and right eye surgery. HOME MEDICATIONS: 1. Tylenol. 2. Eliquis. 3. Lasix. 4. Cefdinir. 5. Metformin. 6. Rosuvastatin. 7. Multaq. 8. Folic acid. 9. Liothyronine. 10. Potassium chloride. ALLERGIES: NONE. SOCIAL HISTORY: No smoking, alcohol, or illicit drug use. FAMILY HISTORY: No history of any kidney disease. REVIEW OF SYSTEMS: CONSTITUTIONAL: Negative for weight loss or gain, ability to conduct usual activities. SKIN: Negative for rash, itching. EYES: Negative for double vision, pain. ENT/MOUTH: Negative for nose bleeding, neck stiffness, pain, tenderness. CARDIOVASCULAR: Negative for palpitations, dyspnea on exertion, orthopnea. RESPIRATORY: Negative for shortness of breath, wheezing, cough, hemoptysis, fever or night sweats. GASTROINTESTINAL: Negative for poor appetite, abdominal pain, heartburn, nausea, vomiting, constipation, or diarrhea. GENITOURINARY: Negative for urgency, frequency, dysuria, nocturia. MUSCULOSKELETAL: Negative for pain, swelling. NEUROLOGIC/PSYCHIATRIC: Negative for anxiety, depression. ALLERGY/IMMUNOLOGIC: Negative for skin rash, bleeding tendency. PHYSICAL EXAMINATION: GENERAL: Reveals a thin-built male, in no apparent distress. VITAL SIGNS: Temperature 97.4, pulse 98, respiratory rate 20, and blood pressure 84/50. HEENT: Atraumatic and normocephalic. Oral mucosa is moist. NECK: Supple. CVS: S1 and S2 heard. Rate and rhythm regular. RESPIRATORY: Clear. GASTROINTESTINAL: Abdomen is soft. MUSCULOSKELETAL: 1+ edema. DERMATOLOGIC: No skin rash. NEUROLOGIC: Alert and awake. PSYCHIATRIC: Normal mood and affect. LABORATORY DATA: Hemoglobin is 9.3. Potassium 4.0, BUN is 56, creatinine is 1.2. Echocardiogram done today, showed EF of 20% to 25%, severe mitral regurgitation, moderate aortic stenosis, moderately enlarged right ventricle. ASSESSMENT AND PLAN: 1. Acute kidney injury, most likely cardiorenal. We will stop Lasix for now, given concerns for volume depletion. 2. Hyponatremia. Sodium level is better. 3. Anemia, which is chronic. 4. Thyroiditis. Follow up thyroid panel. 5. Hypoalbuminemia, severe. 6. Edema and anasarca. 7. Hypotension. Prognosis guarded. Agree with albumin and holding the Lasix. We will follow. Thank you for the consult. Job ID: [id number]
== END 2018-08-06 02:16 | disposition expired | DRG 682 ==
LOC: ERS 14:03 → 2NO 16:23 → CCU 08-04 18:27
PROVIDERS: ADMIT Family Medicine; ATTEND Family Medicine
PROC: 3E033XZ Introduction of Vasopressor into Peripheral Vein, Percutaneous Approach (ICD-10-PCS; principal; 2018-08-03)
DX: N17.9 Acute kidney failure, unspecified (principal); K72.00 Acute and subacute hepatic failure without coma; I50.21 Acute systolic (congestive) heart failure; G93.41 Metabolic encephalopathy; I13.0 Hypertensive heart and chronic kidney disease with heart failure and stage 1 through stage 4 chronic kidney disease, or unspecified chronic kidney disease; E87.1 Hypo-osmolality and hyponatremia; E87.2 Acidosis; I24.8 Other forms of acute ischemic heart disease; I42.0 Dilated cardiomyopathy; Z66 Do not resuscitate; Z51.5 Encounter for palliative care; R57.0 Cardiogenic shock; I48.0 Paroxysmal atrial fibrillation; E87.5 Hyperkalemia; E78.5 Hyperlipidemia, unspecified; E03.9 Hypothyroidism, unspecified; L89.152 Pressure ulcer of sacral region, stage 2; R68.0 Hypothermia, not associated with low environmental temperature; E88.09 Other disorders of plasma-protein metabolism, not elsewhere classified; D69.6 Thrombocytopenia, unspecified; I34.0 Nonrheumatic mitral (valve) insufficiency; I07.1 Rheumatic tricuspid insufficiency; D53.9 Nutritional anemia, unspecified; I35.0 Nonrheumatic aortic (valve) stenosis; R29.6 Repeated falls; Z79.01 Long term (current) use of anticoagulants; Z86.19 Personal history of other infectious and parasitic diseases; Z95.2 Presence of prosthetic heart valve; Z86.73 Personal history of transient ischemic attack (TIA), and cerebral infarction without residual deficits; Z79.84 Long term (current) use of oral hypoglycemic drugs; Z79.899 Other long term (current) drug therapy; E11.22 Type 2 diabetes mellitus with diabetic chronic kidney disease; N18.3 Chronic kidney disease, stage 3 (moderate)
CPT/HCPCS: 36415; 36416; 71045; 80048; 80053; 82140; 82533; 82550; 82553; 82728; 83540; 83605; 83880; 84439; 84443; 84481; 84484; 85025; 85610; 85730; 87040; 93005; 93306; 96365; 96367; J1250; J2543; J2765; J3370; J7050; J7626; P9047